=== PATIENT | male | born 1960 | race Caucasian/White ===

== ENCOUNTER 2020-02-26 08:12 | Outpatient (REF) | payer OTHER, SELFPAY ==
--- NOTE | 2020-02-26 08:39 | XR_ITS ---
EXAMINATION: XR CERVICAL SPINE CLINICAL INFORMATION: Left cervical radiculopathy. COMPARISON: None TECHNIQUE: The cervical spine is imaged in 5 views. FINDINGS: There is straightening of the cervical lordosis. Vertebral bodies are normal in height. The odontoid appears intact. There is no vertebral compression or spondylolisthesis. No destructive process or prevertebral soft tissue swelling. There are degenerative disc changes and C6-C7 and lesser at C5-C6 with associated anterior and posterior vertebral spurring. IMPRESSION: Degenerative disc changes C6-C7 and C5-C6.
[2020-02-26 09:40] LABS: Estimated Average Glucose 212 mg/dL
[2020-02-26 09:57] LABS: Alanine Aminotransferase 58 U/L (0-40); Aspartate Amino Transferase 53 U/L (5-37); Glucose Random 229 mg/dL (60-115)
== END 2020-02-26 08:13 | disposition home or self-care (01) ==
LOC: HO.LAB 08:12
PROVIDERS: PCP Family Medicine; Visit Provider Family Medicine
DX: E11.9 Type 2 diabetes mellitus without complications (principal); R94.5 Abnormal results of liver function studies; M54.12 Radiculopathy, cervical region
CPT/HCPCS: 72040; 82947; 83036; 84450; 84460

== ENCOUNTER 2020-03-04 10:55 | Outpatient (REF) | payer OTHER, SELFPAY ==
[2020-03-04 15:26] LABS: Alanine Aminotransferase 51 U/L (0-40); Albumin Level 4.3 g/dL (3.5-5.0); Alkaline Phosphatase 58 U/L (39-117); Anion Gap 15 (12-20); Aspartate Amino Transferase 33 U/L (5-37); Bilirubin Direct 0.2 mg/dL (0.0-0.5); Bilirubin Total 0.6 mg/dL (0.0-1.0); Blood Urea Nitrogen 17 mg/dL (9-16); Carbon Dioxide 25 mmol/L (22-29); Chloride 99 mmol/L (96-108); Estimated Glomerular Filt Rate > 60; Potassium 4.6 mmol/l (3.3-5.1); Sodium 134 mmol/L (135-145); Total Protein 7.6 g/dL (6.5-8.0)
[2020-03-05 09:40] LABS: HBc Num1 0.06 S/CO (0.00-0.79); Hepatitis B Core Antibody Nonreactive (Nonreactive); ~HepC Num1 0.08 S/CO (0.00-0.79); ~Hepatitis C Antibody Nonreactive (Nonreactive)
[2020-03-08 15:01] LABS: FIB-ALT 46 U/L (9-46); FIB-Alpha-2-Macroglobulin 422 mg/dL (106-279); FIB-Apolipoprotein A1 156 mg/dL (94-176); FIB-GGT 123 U/L (3-70); FIB-Haptoglobin 230 mg/dL (43-212); FIB-Total Bilirubin 0.4 mg/dL (0.2-1.2); Liver Fibrosis Score 0.62; Liver Fibrosis Stage F3; Nec Inflam Act Grade A1-A2; Nec Inflam Act Score 0.37
== END 2020-03-04 10:56 | disposition home or self-care (01) ==
LOC: HO.10HDL 10:55
PROVIDERS: Visit Provider Family Medicine
DX: I10 Essential (primary) hypertension (principal); R79.89 Other specified abnormal findings of blood chemistry; E78.00 Pure hypercholesterolemia, unspecified; Z79.899 Other long term (current) drug therapy
CPT/HCPCS: 80051; 80076; 81596; 82550; 82565; 84520; 86704; 86803

== ENCOUNTER 2020-04-14 09:57 | Outpatient (REF) | payer OTHER, SELFPAY ==
[2020-04-14 10:32] LABS: MANUAL DIFF FLAG NO
[2020-04-14 10:38] LABS: Basophils Percent Auto 0.6 % (0-2); Eosinophils Absolute Auto 0.1 X10*3/uL (0.0-0.4); Eosinophils Percent Auto 1.9 % (0-4); Hemoglobin 16.3 g/dl (14.0-18.0); Imm Gran Abs Auto 0.02 X10*3/uL (0.00-0.03); Imm Gran Pct Auto 0.3 % (0.0-0.4); Lymphocytes Absolute Auto 2.8 X10*3/uL (1.2-4.9); Lymphocytes Percent Auto 41.3 % (20-40); Mean Corpuscular HGB Conc 34.7 g/dl (31.0-36.0); Mean Corpuscular Hemoglobin 32.5 pg (27.0-33.0); Mean Corpuscular Volume 93.8 fL (80-98); Mean Platelet Volume 9.9 fL (9.4-12.4); Monocytes Absolute Auto 0.6 X10*3/uL (0.1-1.2); Monocytes Percent Auto 8.2 % (2-11); Neutrophils Absolute Auto 3.2 X10*3/uL (2.0-8.3); Neutrophils Percent Auto 47.7 % (45-73); Platelet Count 146 X10*3/uL (160-400); Red Blood Count 5.01 X10*6/uL (4.60-5.80); Red Cell Distribution Width 12.7 % (11.0-16.0); White Blood Count 6.7 X10*3/uL (4.8-10.8)
[2020-04-14 11:00] LABS: Alanine Aminotransferase 65 U/L (0-40); Albumin Level 4.2 g/dL (3.5-5.0); Alkaline Phosphatase 73 U/L (39-117); Aspartate Amino Transferase 38 U/L (5-37); Bilirubin Direct 0.2 mg/dL (0.0-0.5); Bilirubin Total 0.5 mg/dL (0.0-1.0); Iron 158 mcg/dL (45-160); Percent Iron Saturation 47 % (15-50); Total Iron Binding Capacity 338 mcg/dL (228-428); Total Protein 7.4 g/dL (6.5-8.0); Unsaturated Iron Binding 180 ug/dL
[2020-04-14 11:23] LABS: Ferritin 720 ng/mL (20-250)
[2020-04-16 13:27] LABS: Anti Nuclear Antibody Screen NEGATIVE (NEGATIVE)
[2020-04-16 13:52] LABS: Mitochondrial Antibodies NEGATIVE (NEGATIVE)
[2020-04-18 00:12] LABS: Smooth Muscle Antibody <20 U (<20)
== END 2020-04-14 09:58 | disposition home or self-care (01) ==
LOC: HO.10HDL 09:57
PROVIDERS: Visit Provider Internal Medicine Gastroenterology
DX: R79.89 Other specified abnormal findings of blood chemistry (principal)
CPT/HCPCS: 36415; 80076; 82728; 83540; 85025; 86038; 86039; 86255; 86256

== ENCOUNTER 2020-04-30 09:21 | Outpatient (REF) | payer OTHER, SELFPAY ==
--- NOTE | 2020-04-30 | US_ITS ---
EXAMINATION: US ABDOMEN COMPLETE CLINICAL INFORMATION: Elevated LFTs. COMPARISON: Renal ultrasound 02/03/2016. CT abdomen and pelvis 01/10/2016. TECHNIQUE: Real-time imaging of the abdominal viscera. FINDINGS: PANCREAS: The head and the body of the pancreas is homogeneous in echotexture. The tail is obscured by overlying gas. ABDOMINAL AORTA: The proximal, mid, and distal segments are normal in caliber. INFERIOR VENA CAVA: Visualized portions are normal. LIVER: The liver is normal in size. The liver contour is normal. The liver is increased echogenicity with areas of focal fatty sparing. There is left hepatic lobe lesion with a central hypodensity in the surrounding hypoechoic vascular rim measuring 1.5 x 1.2 x 1.4 cm. There is no intrahepatic biliary duct dilatation seen. GALLBLADDER: Normal. The gallbladder is physiologically distended without evidence of stones, sludge, polyps, wall thickening or pericholecystic fluid. COMMON BILE DUCT: Normal in caliber measuring 0.9 cm in diameter. RIGHT KIDNEY: No hydronephrosis. No renal calculi or focal parenchymal lesions. The kidney measures 12.4 cm in maximum dimension. There is an extrarenal right kidney pelvis noted. LEFT KIDNEY: No hydronephrosis or renal calculi. The kidney measures 13.5 cm in maximum dimension. There is a mid pole anechoic cyst measuring 0.7 x 0.7 x 0.8 seen. Question parapelvic renal cyst in midpole cyst measuring 1.9 x 2.0 x 2.0 cm. SPLEEN: Normal. The spleen measures 10.4 cm in maximum dimension. FREE FLUID: None. US/US abdomen complete IMPRESSION: Increased echogenicity of liver with areas of focal fatty sparing. Vascular lesion left hepatic lobe question hemangioma. Left renal midpole and a parapelvic midpole 2 renal cysts. No echogenic stones or hydronephrosis in either kidney. Extrarenal right kidney pelvis.
== END 2020-04-30 09:22 | disposition home or self-care (01) ==
LOC: HO.US 09:21
PROVIDERS: PCP Family Medicine; Visit Provider Internal Medicine Gastroenterology
DX: R79.89 Other specified abnormal findings of blood chemistry (principal)
CPT/HCPCS: 76700

== ENCOUNTER 2020-05-16 08:30 | Day surgery (SDC) | payer OTHER, SELFPAY ==
[2020-05-12 14:54] VITALS: BMI 32.3
--- NOTE | 2020-05-15 08:39 | P.CONAN_ITS ---
Documented by User: Karen Eli 05/15/20 08:40 HPI - Anesthesia Eval Consult details Narrative: 60yo M for Upper Endoscopy and Colonoscopy [facility] Past Medical History Medical History (Updated 05/16/20 @ 09:02 by Trupti Deleon) Diabetes Elevated cholesterol HTN (hypertension) Increased BMI Surgical History Surgical History H/O colonoscopy History of esophagogastroduodenoscopy (EGD) History of esophagogastroduodenoscopy (EGD) Hx of hand surgery Social History Social History Smoking Status: Never smoker Second Hand Smoke Exposure: No Use of substances other than those prescribed or required for medical reasons: No Advance Directives: No Advance Directives Information Provided: No Advance Directives on File: No Meds Allergies Allergy/AdvReac Type Severity Reaction Status Date / Time tree nut [TREE NUT] Allergy Unknown ANGIOEDEMA Verified 05/12/20 14:54 Home Medications Medication Instructions Recorded Confirmed Type amlodipine 5 mg tablet 5 mg PO DAILY 02/18/20 05/12/20 History blood sugar diagnostic #10 ea 02/18/20 05/12/20 History blood-glucose meter #1 ea 02/18/20 History doxycycline hyclate 100 mg capsule 100 mg PO BID 02/18/20 05/12/20 History lancets 28 gauge #100 ea 02/18/20 History metformin 1,000 mg tablet 1,000 mg PO BEDTIME 02/18/20 05/12/20 History omeprazole 20 mg capsule,delayed 20 mg PO DAILY 02/18/20 05/12/20 History release quinapril 40 mg tablet 40 mg PO DAILY 02/18/20 05/12/20 History rosuvastatin 20 mg tablet 20 mg PO BEDTIME 02/18/20 05/12/20 History Exam Exam Date and Time: May 15, 2020 0839 Height,Weight and Vital Signs: Height 5 ft 8 in Weight 96.615 kg Pertinent Lab Results Pertinent Lab Results: Laboratory Tests 03/04/20 04/14/20 10:40 10:00 WBC 6.7 Hgb 16.3 Hct 47.0 Plt Count 146 L Sodium 134 L Potassium 4.6 Chloride 99 Carbon Dioxide 25 BUN 17 H Creatinine 1.01 Assessment and Plan Assessment Anesthesia Assessment: Chart Reviewed Documented by User: Trupti Deleon 05/16/20 10:10 PMFSH Past Medical History Medical History (Updated 05/16/20 @ 09:02 by Trupti Deleon) Diabetes Elevated cholesterol HTN (hypertension) Increased BMI Family History Family history of problems with anesthesia: No Surgical History Surgical History H/O colonoscopy History of esophagogastroduodenoscopy (EGD) History of esophagogastroduodenoscopy (EGD) Hx of hand surgery History of Problems with Anesthesia: No Social History Social History Smoking Status: Never smoker Second Hand Smoke Exposure: No Use of substances other than those prescribed or required for medical reasons: No Advance Directives: No Advance Directives Information Provided: No Advance Directives on File: No Meds Allergies Allergy/AdvReac Type Severity Reaction Status Date / Time tree nut [TREE NUT] Allergy Unknown ANGIOEDEMA Verified 05/12/20 14:54 Home Medications Medication Instructions Recorded Confirmed Type amlodipine 5 mg tablet 5 mg PO DAILY 02/18/20 05/12/20 History blood sugar diagnostic #10 ea 02/18/20 05/12/20 History blood-glucose meter #1 ea 02/18/20 History doxycycline hyclate 100 mg capsule 100 mg PO BID 02/18/20 05/12/20 History lancets 28 gauge #100 ea 02/18/20 History metformin 1,000 mg tablet 1,000 mg PO BEDTIME 02/18/20 05/12/20 History omeprazole 20 mg capsule,delayed 20 mg PO DAILY 02/18/20 05/12/20 History release quinapril 40 mg tablet 40 mg PO DAILY 02/18/20 05/12/20 History rosuvastatin 20 mg tablet 20 mg PO BEDTIME 02/18/20 05/12/20 History Exam Exam Date and Time: Vital Signs Temp Pulse Resp BP Pulse Ox 05/16/20 09:13 97.4 F 68 18 135/81 96 Pertinent Lab Results Pertinent Lab Results: Lab Results 05/16/20 05/16/20 Range/Units 08:57 09:40 POC Glucose 316 H 277 H (60-115) mg/dL POC 316- Patient did not take his metformin yesterday and has been drinking gatorade as part of his prep. Treated with insulin. Repeat POC 277 Airway Mallampati Class: III TM Dist: >3cm Neck ROM: Full Loose/Missing/Broken Teeth: No (Caps intact) Heart: RRR Lungs: CTAB Assessment and Plan Assessment Anesthesia Assessment: Anesthesia Plan Discussed and Chart Reviewed Final Anesthetic Review NPO: Yes ASA Class: III Final Preanesthetic Review: No Changes in Pt Med Stat, Meds/Allgs Chart Reviewed, Consent Obtained/Reviewed and Anes Risks/Benef Reviewed Patient Risk: Low Procedure Risk: Low Anesthetic Plan Anesthetic Plan: MAC: Disposition: Standard PACU
[2020-05-16] MEDS: Lactated Ringers 1,000 ML 100 ML IVCONT (09:12)
[2020-05-16] MEDS: Insulin Regular, Human 100 UNIT/ML 3 ML VIAL SUBCUT (09:12)
[2020-05-16 09:13] VITALS: BP 135/81; PULSE 68; RESP 18; TEMP 36.3; O2SAT 96
[2020-05-16 09:36] LABS: Glucose, Whole Blood 316 mg/dL (60-115)
[2020-05-16 09:43] LABS: Glucose, Whole Blood 277 mg/dL (60-115)
--- NOTE | 2020-05-16 09:45 | P.HPSUR_ITS ---
Pre-Procedural Eval Section B Chief Complaint: Screening, Dysphagia Details of Present Illness: see h&p no changes Relevant Family History (Specify if Yes): No Relevant Social History: None Present Medications: see Short Stay Collaborative assessment Medical History: No relevant PMH History of Previous Operations: No relevant previous surgery Allergies: Allergies Allergy/AdvReac Type Severity Reaction Status Date / Time tree nut [TREE NUT] Allergy Unknown ANGIOEDEMA Verified 05/12/20 14:54 Review of Systems Sugical H&P ROS: Negative: Constitution, Cardiovascular, Respiratory, Neurological, Psychiatric, Hem-Onc, Allergic/Immunologic, Gastrointestinal, Ge nitourinary, Musculoskeletal, Integumentary, Endocrine and Eyes/Ears/Nose/Throat Exam Surgical H&P Exam: Normal: HEENT, Normal: Heart, Normal: Lungs, Normal: Extremities, Normal: Abdomen, Normal: Skin and Normal: Neurological Plan Diagnosis/Plan: Unchanged I have reviewed the history and physical and performed a pertinent physical examination on my patient. No changes have occurred unless specified.
[2020-05-16 10:29] VITALS: BP 107/75; PULSE 56; RESP 18; TEMP 36.4; O2SAT 97
--- NOTE | 2020-05-16 10:38 | PM.OP ---
Brief Operative Note Date of Service: 05/16/20 Pre-op diagnosis: dysphagia, screening Post-op diagnosis: same Procedure: egd colonoscopy Surgeon: Moises Blankenship Anesthesia: MAC Estimated blood loss (mL): 10 Pathology: other (antrum, egj) Condition: stable Disposition: PACU
[2020-05-16 10:46] VITALS: BP 136/87; PULSE 66; RESP 18; O2SAT 94
--- NOTE | 2020-05-16 10:54 | OP_ITS ---
SURGEON: Moises Blankenship MD INDICATIONS: 1. Dysphagia. 2. Colon cancer screening. PREOPERATIVE DIAGNOSIS: POSTOPERATIVE DIAGNOSIS: PROCEDURE PERFORMED: 1. Upper endoscopy with balloon dilation and biopsy. 2. Colonoscopy to the terminal ileum. ESTIMATED BLOOD LOSS: COMPLICATIONS: ANESTHESIA: Monitored anesthesia care. ASSISTANTS: SPECIMENS: DESCRIPTION OF PROCEDURE: History and physical performed. The risks and benefits of the procedure were explained to the patient. Informed consent was obtained. The patient was placed in the left lateral decubitus position. The Olympus video gastroscope was introduced into the esophagus, stomach, and duodenum. Examination was performed. The scope was removed. He was repositioned for colonoscopy. Digital rectal exam was performed and was found to be normal. The Olympus pediatric video colonoscope was introduced into the rectum and advanced to the cecum without difficulty. The cecum was identified by transillumination, palpation, and identification of ileocecal valve. Examination was performed. The scope was removed. He tolerated both procedures well and was returned to recovery area in stable condition. FINDINGS: UPPER ENDOSCOPY: Esophagus, there was a nonobstructive Schatzki ring. The scope easily passed into the stomach. There was no esophagitis. Stomach: The stomach was normal. Colonoscopy. Duodenum: The bulb and second portion were normal. Balloon dilation of the EG junction to 20 mm for 60 seconds was performed with no immediate complications in the superficial mucosa, mucosal tear. Next biopsies were obtained from the EG junction and antrum. COLONOSCOPY: The terminal ileum was not examined. The visualized colonic mucosa was normal. There was some stool coating over colon in the right colon and cecum, limiting the sensitivity examination for detection of small polyps. No polyps were identified. This was washed and suctioned. Retroflexed examination showed moderate-sized internal hemorrhoids. IMPRESSION: 1. Schatzki ring, status post balloon dilation. 2. Normal colonoscopy. RECOMMENDATION: 1. Follow up the biopsy results. 2. Repeat colonoscopy is recommended in 10 years for average risk individuals. MD MILADIS Tucker/JOSHL / [id number]
[2020-05-16 10:55] VITALS: BP 147/94; PULSE 58; RESP 18; TEMP 36.6; O2SAT 96
--- NOTE | 2020-05-16 11:21 | HO.POSTANES ---
Post Anesthesia Evaluation Post Anesthesia Evaluation Vital Signs: Vital Signs Temp Pulse Resp BP Pulse Ox 05/16/20 10:55 97.8 F 58 18 147/94 H 96 05/16/20 10:46 66 18 136/87 94 05/16/20 10:29 97.5 F 56 18 107/75 97 05/16/20 09:13 97.4 F 68 18 135/81 96 Anesthesia: Monitored Mental Status: Awake Pain Control: Satisfactory Nausea/Vomiting: None Hydration: Adequate Anesthesia-Related Issues: No Anes. Related Issues
== END 2020-05-16 11:36 | disposition home or self-care (01) ==
PROVIDERS: PCP Family Medicine; Visit Provider Internal Medicine Gastroenterology
PROC: (CPT 45378; principal; 2020-05-16 09:30)
DX: Z12.11 Encounter for screening for malignant neoplasm of colon (principal); K64.8 Other hemorrhoids; R13.10 Dysphagia, unspecified; K22.2 Esophageal obstruction; I10 Essential (primary) hypertension; E11.9 Type 2 diabetes mellitus without complications; Z79.84 Long term (current) use of oral hypoglycemic drugs; Z79.82 Long term (current) use of aspirin; Z79.899 Other long term (current) drug therapy; R79.89 Other specified abnormal findings of blood chemistry; Z91.018 Allergy to other foods
CPT/HCPCS: 45378; 43249; 43239; 82947; 88305; 88342; C1726

== ENCOUNTER 2020-09-01 06:48 | Outpatient (REF) | payer OTHER, SELFPAY ==
[2020-09-01 08:05] LABS: Alanine Aminotransferase 57 U/L (0-40); Anion Gap 16 (12-20); Aspartate Amino Transferase 47 U/L (5-37); Blood Urea Nitrogen 15 mg/dL (9-16); Carbon Dioxide 24 mmol/L (22-29); Chloride 101 mmol/L (96-108); Estimated Glomerular Filt Rate > 60; Glucose Fasting 272 mg/dL (60-99); Potassium 5.1 mmol/L (3.3-5.1); Sodium 136 mmol/L (135-145)
[2020-09-01 08:07] LABS: Estimated Average Glucose 286 mg/dL; Hemoglobin A1c % 11.6 %
== END 2020-09-01 06:49 | disposition home or self-care (01) ==
LOC: HO.LAB 06:48
PROVIDERS: PCP Family Medicine; Visit Provider Family Medicine
DX: E11.9 Type 2 diabetes mellitus without complications (principal); I10 Essential (primary) hypertension; E78.00 Pure hypercholesterolemia, unspecified; Z79.899 Other long term (current) drug therapy
CPT/HCPCS: 36415; 80051; 82550; 82565; 82947; 83036; 84450; 84460; 84520

== ENCOUNTER 2020-10-17 09:11 | Outpatient (REF) | payer OTHER, SELFPAY ==
[2020-10-17 10:12] LABS: Cholesterol 185 mg/dL; HDL Cholesterol 46 mg/dL; LDL Cholesterol Calculated 87 mg/dl; Triglycerides 262 mg/dL
[2020-10-17 12:27] LABS: Creatinine Urine 118.21 mg/dL; Microalbum/Creatinine Ratio Ur 177.6 ug/mg cr
[2020-10-18 07:41] LABS: LDL Cholesterol Direct 100 mg/dL (<100)
== END 2020-10-17 09:12 | disposition home or self-care (01) ==
LOC: HO.LAB 09:11
PROVIDERS: PCP Family Medicine; Visit Provider Nurse Practitioner Family
DX: E11.9 Type 2 diabetes mellitus without complications (principal)
CPT/HCPCS: 36415; 80061; 82043; 83721

== ENCOUNTER 2020-12-09 10:53 | Outpatient (REF) | payer OTHER, SELFPAY ==
--- NOTE | ~2020-12-09 | US_ITS ---
EXAMINATION: US THYROID CLINICAL INFORMATION: Follow up multiple bilateral thyroid nodules. COMPARISON: Ultrasound soft tissue head/neck thyroid dated 11/14/2017 and 10/09/2015. TECHNIQUE: Linear transducer grayscale and color Doppler examination with attention to the region of the thyroid. FINDINGS: SIZE: Measurements of the thyroid lobes and nodules are given in sagittal, anteroposterior and transverse dimensions respectively. Right Thyroid Lobe: 4.7 x 2.0 x 1.6 cm, volume 7.9 mL. Previously 4.6 x 1.6 x 1.5 cm, volume 5.8 mL. Parenchyma: The gland echotexture is heterogeneous. Thyroid vascularity is normal. Left Thyroid Lobe: 5.1 x 2.6 x 2.7 cm, volume 18.8 mL. Previously 4.5 x 2.4 x 2.6 cm, volume 14.7 mL. Parenchyma: The gland echotexture is heterogeneous. Thyroid vascularity is normal. Isthmus: 0.5 cm in maximum AP dimension. Previously 0.4 cm. Estimated total number of nodules greater than or equal to 1 cm: 1. Weatherization And Housing Inspector nodules are described as follows: 1. Location: Right superior. Size: 0.3 x 0.2 x 0.3 cm, volume 0.09 mL. Previously: 0.3 x 0.2 x 0.3 cm, volume 0.09 mL. Nodule characteristics: Composition: Cystic(0). ACR TI-RADS total points: 0 Previous: n/a ACR TI-RADS category: 1 Previous: n/a Significant change in size (>/= 20% in 2 dimensions and minimal increase of 2 mm or 50% or greater increase in volume): Change in features: Change in ACR TI-RADS risk category: n/a 2. Location: Right mid. Size: 0.2 x 0.2 x 0.2 cm, volume 0.003 mL. Previously: 0.2 x 0.2 x 0.2 cm, volume 0.003 mL. Nodule characteristics: Composition: Mixed cystic and solid (1). Echogenicity: Hypoechoic (2). Shape: Not taller than wide (0). Margins: Smooth (0). Echogenic Foci: None (0). ACR TI-RADS total points: 3 Previous: n/a ACR TI-RADS category: 3 Previous: n/a Significant change in size (>/= 20% in 2 dimensions and minimal increase of 2 mm or 50% or greater increase in volume): Change in features: Change in ACR TI-RADS risk category: n/a 3. Location: Left mid. Size: 2.1 x 1.9 x 2.7 cm, volume 5.6 mL. Previously: 2.9 x 2.0 x 2.2 cm, volume 6.7 mL. Nodule characteristics: Composition: Mixed cystic and solid (1). Echogenicity: Hyperechoic (1). Shape: Not taller than wide (0). Margins: Smooth (0). Echogenic Foci: None (0). ACR TI-RADS total points: 2 Previous: n/a ACR TI-RADS category: 2 Previous: n/a Significant change in size (>/= 20% in 2 dimensions and minimal increase of 2 mm or 50% or greater increase in volume): Change in features: Change in ACR TI-RADS risk category: n/a 4. Location: Left inferior. Size: 0.6 x 0.5 x 0.5 cm, volume 0.07 mL. Previously: 0.6 x 0.4 x 0.5 cm, volume 0.06 mL. Nodule characteristics: Composition: Solid/almost completely solid (2). Echogenicity: Anechoic (0). Shape: Not taller than wide (0). Margins: Smooth (0). Echogenic Foci: None (0). ACR TI-RADS total points: 2 Previous: n/a ACR TI-RADS category: 2 Previous: n/a Significant change in size (>/= 20% in 2 dimensions and minimal increase of 2 mm or 50% or greater increase in volume): Change in features: Change in ACR TI-RADS risk category: n/a 5. Location: Left isthmus. Size: 0.8 x 0.7 x 0.9 cm, volume 0.3 mL. Previously: 1.0 x 0.7 x 1.0 cm, volume 0.3 mL. Nodule characteristics: Composition: Solid (2). Echogenicity: Isoechoic (1). Shape: Not taller than wide (0). Margins: Smooth (0). Echogenic Foci: None (0). ACR TI-RADS total points: 3 Previous: n/a ACR TI-RADS category: 3 Previous: n/a Significant change in size (>/= 20% in 2 dimensions and minimal increase of 2 mm or 50% or greater increase in volume): Change in features: Change in ACR TI-RADS risk category: n/a NODES: No lymphadenopathy is seen in the tissue surrounding the thyroid gland. US/US thyroid IMPRESSION: TI-RADS Category 3 involving a 2 mm nodule within the right middle lobe and a 2.1 x 1.9 x 2.7 cm left mid nodule. The largest nodule measuring 2.7 cm in largest dimension has been biopsied in 2015 with result of findings of a follicular lesion of undetermined significance. Continued follow-up is recommended. ACR TI-RADS RECOMMENDATION REFERENCE: Ultrasound-guided fine-needle aspiration, followup ultrasound, no further follow up. * TR1 (0 point) and TR 2 (2 points): No FNA or follow up * TR3 (3 points): FNA if more than or equal to 2.5 cm in maximum dimension, followup ultrasound in 1, 3 and 5 years if 1.5 to 2.4 cm in maximum dimension. * TR4 (4-6 points): FNA if more than or equal to 1.5 cm in maximum dimension, followup ultrasound in 1, 2, 3 and 5 years if 1 to 1.4 cm in maximum dimension. * TR5 (more than or equal to 7 points): FNA if more than or equal to 1 cm in maximum dimension, followup ultrasound every year for 5 years if 0.5 to 0.9 cm in maximum dimension. * TR3, TR4 or TR5 nodules that are below the size threshold for follow up receive no follow up.
== END 2020-12-09 10:54 | disposition home or self-care (01) ==
LOC: HO.US 10:53
PROVIDERS: Visit Provider Family Medicine
DX: E04.2 Nontoxic multinodular goiter (principal)
CPT/HCPCS: 76536

== ENCOUNTER 2021-02-05 07:34 | Outpatient (REF) | payer OTHER, SELFPAY ==
[2021-02-05 10:39] LABS: Alanine Aminotransferase 37 U/L (0-40); Anion Gap 12 (12-20); Aspartate Amino Transferase 26 U/L (5-37); Blood Urea Nitrogen 13 mg/dL (9-16); Carbon Dioxide 25 mmol/L (22-29); Chloride 107 mmol/L (96-108); Estimated Glomerular Filt Rate > 60; Glucose Fasting 131 mg/dL (60-99); Potassium 4.7 mmol/L (3.3-5.1); Sodium 139 mmol/L (135-145)
[2021-02-05 11:00] LABS: Estimated Average Glucose 134 mg/dL; Hemoglobin A1c % 6.3 %
== END 2021-02-05 07:35 | disposition home or self-care (01) ==
LOC: HO.10HDL 07:34
PROVIDERS: Visit Provider Family Medicine
DX: I10 Essential (primary) hypertension (principal); E78.00 Pure hypercholesterolemia, unspecified; E11.9 Type 2 diabetes mellitus without complications; Z79.899 Other long term (current) drug therapy
CPT/HCPCS: 36415; 80051; 82550; 82565; 82947; 83036; 84450; 84460; 84520

== ENCOUNTER 2021-08-06 06:20 | Outpatient (REF) | payer OTHER, SELFPAY ==
[2021-08-06 07:09] LABS: Estimated Average Glucose 143 mg/dL; Hemoglobin A1c % 6.6 %
[2021-08-06 07:21] LABS: Alanine Aminotransferase 38 U/L (0-40); Anion Gap 14 (12-20); Aspartate Amino Transferase 25 U/L (5-37); Blood Urea Nitrogen 15 mg/dL (9-16); Carbon Dioxide 23 mmol/L (22-29); Chloride 105 mmol/L (96-108); Estimated Glomerular Filt Rate > 60; Glucose Fasting 241 mg/dL (60-99); Potassium 4.6 mmol/L (3.3-5.1); Sodium 137 mmol/L (135-145)
[2021-08-06 10:15] LABS: Creatinine Urine 189.21 mg/dL; Microalbum/Creatinine Ratio Ur 206.1 ug/mg cr
== END 2021-08-06 06:21 | disposition home or self-care (01) ==
LOC: HO.LAB 06:20
PROVIDERS: PCP Family Medicine; Visit Provider Family Medicine
DX: I10 Essential (primary) hypertension (principal); E11.9 Type 2 diabetes mellitus without complications; K75.81 Nonalcoholic steatohepatitis (NASH)
CPT/HCPCS: 36415; 80051; 82043; 82565; 82947; 83036; 84450; 84460; 84520

== ENCOUNTER → 2021-10-07 09:57 | Outpatient (BNVA) | payer OTHER, SELFPAY | PROVIDERS: PCP Family Medicine; Visit Provider Orthopaedic Surgery | DX: Z13.89 Encounter for screening for other disorder (principal) ==

== ENCOUNTER 2022-03-09 06:01 | Outpatient (REF) | payer OTHER, SELFPAY ==
[2022-03-09 07:49] LABS: Creatinine Urine 85.11 mg/dL; Microalbum/Creatinine Ratio Ur 438.2 ug/mg cr
[2022-03-09 08:16] LABS: Alanine Aminotransferase 47 U/L (0-40); Anion Gap 18 (12-20); Aspartate Amino Transferase 29 U/L (5-37); Blood Urea Nitrogen 17 mg/dL (9-16); Carbon Dioxide 25 mmol/L (22-29); Chloride 101 mmol/L (96-108); Estimated Glomerular Filt Rate > 60; Glucose Fasting 287 mg/dL (60-99); Potassium 4.7 mmol/L (3.3-5.1); Sodium 139 mmol/L (135-145)
[2022-03-09 08:34] LABS: Estimated Average Glucose 212 mg/dL
== END 2022-03-09 06:02 | disposition home or self-care (01) ==
LOC: HO.LAB 06:01
PROVIDERS: PCP Family Medicine; Visit Provider Family Medicine
DX: I10 Essential (primary) hypertension (principal); E11.9 Type 2 diabetes mellitus without complications; E78.00 Pure hypercholesterolemia, unspecified; Z79.899 Other long term (current) drug therapy
CPT/HCPCS: 36415; 80051; 82043; 82550; 82565; 82947; 83036; 84450; 84460; 84520

== ENCOUNTER 2023-06-09 06:09 | Outpatient (REF) | payer OTHER, SELFPAY ==
[2023-06-09 08:03] LABS: Estimated Average Glucose 171 mg/dL; Hemoglobin A1c % 7.6 % (<6.0)
[2023-06-09 08:14] LABS: Alanine Aminotransferase 20 U/L (0-40); Anion Gap 12 (12-20); Aspartate Amino Transferase 16 U/L (5-37); Blood Urea Nitrogen 15 mg/dL (9-16); Carbon Dioxide 24 mmol/L (22-29); Chloride 106 mmol/L (96-108); Estimated Glomerular Filt Rate > 60; Glucose Fasting 158 mg/dL (60-99); Potassium 4.6 mmol/L (3.3-5.1); Sodium 137 mmol/L (135-145)
[2023-06-09 08:18] LABS: Creatinine Urine 180.43 mg/dL; Microalbum/Creatinine Ratio Ur 188.4 ug/mg cr (<30)
== END 2023-06-09 06:10 | disposition home or self-care (01) ==
LOC: HO.LAB 06:09
PROVIDERS: PCP Family Medicine; Visit Provider Family Medicine
DX: I10 Essential (primary) hypertension (principal); E11.9 Type 2 diabetes mellitus without complications; E78.00 Pure hypercholesterolemia, unspecified; K75.81 Nonalcoholic steatohepatitis (NASH)
CPT/HCPCS: 36415; 80051; 82043; 82565; 82570; 82947; 83036; 84450; 84460; 84520

== ENCOUNTER 2023-08-09 09:49 | Outpatient (REF) | payer OTHER, SELFPAY ==
--- NOTE | ~2023-08-09 | US_ITS ---
EXAMINATION: US THYROID CLINICAL INFORMATION: Nontoxic multinodular goiter. COMPARISON: Thyroid ultrasound 12/09/2020. TECHNIQUE: Linear transducer grayscale and color Doppler examination with attention to the region of the thyroid. FINDINGS: SIZE: Measurements of the thyroid lobes and nodules are given in sagittal, anteroposterior and transverse dimensions respectively. Right Thyroid Lobe: 4.6 x 1.6 x 1.7 cm, volume 6.8 mL. Previously 4.7 x 2.0 x 1.6 cm, volume 7.9 mL. Parenchyma: The gland echotexture is heterogeneous. Thyroid vascularity is normal. Left Thyroid Lobe: 4.3 x 2.3 x 2.4 cm, volume 11.9 mL. Previously 5.1 x 2.6 x 2.7 cm, volume 18.8 mL. Parenchyma: The gland echotexture is heterogeneous. Thyroid vascularity is normal. Isthmus: 0.6 cm in maximum AP dimension. Previously 0.5 cm. Estimated total number of nodules greater than or equal to 1 cm: 2. Hose Finisher nodules are described as follows: 1. Location: Right upper pole. Size: 0.3 x 0.2 x 0.4 cm, volume 0.08 mL. Previously: 0.3 x 0.2 x 0.3 cm, volume 0.09 mL. Nodule characteristics: Composition: Cystic(0). ACR TI-RADS total points: 0 Previous: 0 ACR TI-RADS category: 1 Previous: 1 Significant change in size (>/= 20% in 2 dimensions and minimal increase of 2 mm or 50% or greater increase in volume): No Change in features: No Change in ACR TI-RADS risk category: No 2. Location: Right mid pole. Size: 0.7 x 0.5 x 0.6 cm, volume 0.11 mL. Previously: Not documented, new. Nodule characteristics: Composition: Solid/almost completely solid (2). Echogenicity: Cannot be determined (1). Shape: Not taller than wide (0). Margins: Ill-defined (0). Echogenic Foci: None (0). ACR TI-RADS total points: 3 ACR TI-RADS category: 3 3. Location: Left mid pole. Size: 2.7 x 2.0 x 2.2 cm, volume 6.2 mL. Previously: 2.1 x 1.9 x 2.7 cm, volume 5.6 mL. Nodule characteristics: Composition: Mixed cystic and solid (1). Echogenicity: Hypoechoic (2). Shape: Not taller than wide (0). Margins: Smooth (0). Echogenic Foci: Macrocalcifications (1). ACR TI-RADS total points: 4 Previous: 2 ACR TI-RADS category: 4 Previous: 2 Significant change in size (>/= 20% in 2 dimensions and minimal increase of 2 mm or 50% or greater increase in volume): Yes Change in features: Yes Change in ACR TI-RADS risk category: Yes 4. Location: Left mid/lower pole. Size: 1.0 x 0.7 x 0.7 cm, volume 0.24 mL. Previously: 0.6 x 0.4 x 0.5 cm, volume 0.06 mL. Nodule characteristics: Composition: Solid/almost completely solid (2). Echogenicity: Hypoechoic (2). Shape: Not taller than wide (0). Margins: Smooth (0). Echogenic Foci: None (0). ACR TI-RADS total points: 4 Previous: 2 ACR TI-RADS category: 4 Previous: 2 Significant change in size (>/= 20% in 2 dimensions and minimal increase of 2 mm or 50% or greater increase in volume): Yes Change in features: No Change in ACR TI-RADS risk category: No 5. Location: Left lower pole/isthmus. Size: 1.1 x 0.8 x 0.9 cm, volume 0.44 mL. Previously: 1.0 x 0.7 x 1.0 cm, volume 0.3 mL. Nodule characteristics: Composition: Solid (2). Echogenicity: Hypoechoic (2). Shape: Not taller than wide (0). Margins: Smooth (0). Echogenic Foci: None (0). ACR TI-RADS total points: 4 Previous: 3 ACR TI-RADS category: 4 Previous: 3 Significant change in size (>/= 20% in 2 dimensions and minimal increase of 2 mm or 50% or greater increase in volume): No Change in features: No Change in ACR TI-RADS risk category: No NODES: No lymphadenopathy is seen in the tissue surrounding the thyroid gland. US/US thyroid IMPRESSION: Heterogeneous multinodular thyroid gland. A 2.7 cm TR 4 nodule in the left mid pole is increase in size and slightly more hypoechoic, if not previously obtained, further evaluation with FNA is recommended. A 1 cm TR 4 nodule in the left mid to lower pole is also increase in size. Recommend follow-up with ultrasound in one year. An additional 1.1 cm TR 4 nodule in the left lower pole is unchanged. Recommend follow-up with ultrasound in one year. Other subcentimeter thyroid nodules do not meet size criteria for further evaluation. ACR TI-RADS RECOMMENDATION REFERENCE: Ultrasound-guided fine-needle aspiration, follow up ultrasound, no further followup. * TR1 (0 point) and TR2 (2 points): No FNA or followup * TR3 (3 points): FNA if more than or equal to 2.5 cm in maximum dimension, follow up ultrasound in 1, 3 and 5 years if 1.5 to 2.4 cm in maximum dimension. * TR4 (4-6 points): FNA if more than or equal to 1.5 cm in maximum dimension, follow up ultrasound in 1, 2, 3 and 5 years if 1 to 1.4 cm in maximum dimension. * TR5 (more than or equal to 7 points): FNA if more than or equal to 1 cm in maximum dimension, follow up ultrasound every year for 5 years if 0.5 to 0.9 cm in maximum dimension. * TR3, TR4 or TR5 nodules that are below the size threshold for follow up receive no followup.
== END 2023-08-09 09:50 | disposition home or self-care (01) ==
LOC: HO.US 09:49
PROVIDERS: PCP Family Medicine; Visit Provider Family Medicine
DX: E04.2 Nontoxic multinodular goiter (principal)
CPT/HCPCS: 76536

== ENCOUNTER 2023-11-08 15:20 | Outpatient (AMB) | payer OTHER, SELFPAY ==
[2023-11-08 15:22] VITALS: BP 126/76; PULSE 68; BMI 31.4
--- NOTE | 2023-11-08 15:22 | A.OFFVIS_ITS ---
Vital Signs 11/08/23 15:22 Height 5 ft 9 in Weight 212 lb 8.41 oz BMI 31.4 BP 126/76 Blood Pressure Location Lt brachial Position Sitting Pulse 68 Pulse Source Pulse Oximeter Intake Visit Reasons: thyroid Nodules-confirmed Intake Note: New patient presents today for Thyroid Nodule, referred by PCP. Control Panel Builder Required: No Accompanied by: Self / Same As Patient Allergies tree nut [TREE NUT] Allergy (Unknown, Verified 11/08/23 15:26) ANGIOEDEMA Medication List - Last Reconciled 11/08/23 by José Miguel Matthews MD amlodipine 5 mg PO DAILY blood sugar diagnostic As directed blood-glucose meter As directed dulaglutide (Trulicity) mg subcut lancets As directed metformin (Glucophage) 1,000 mg PO BEDTIME omeprazole 20 mg PO DAILY quinapril 40 mg PO DAILY rosuvastatin 20 mg PO BEDTIME HPI Comments Details: 63 YO M with who is seen in consultation for multinodular thyroid at the request of PCP. Never saw endo before Was initially diagnosed with multinodular thyroid in [] with thyroid US revealing .Right Thyroid Lobe: 4.6 x 1.6 x 1.7 cm, volume 6.8 mL. Previously 4.7 x 2.0 x 1.6 cm, volume 7.9 mL. Parenchyma: The gland echotexture is heterogeneous. Thyroid vascularity is normal. Left Thyroid Lobe: 4.3 x 2.3 x 2.4 cm, volume 11.9 mL. Previously 5.1 x 2.6 x 2.7 cm, volume 18.8 mL. Parenchyma: The gland echotexture is heterogeneous. Thyroid vascularity is normal. Isthmus: 0.6 cm in maximum AP dimension. Previously 0.5 cm. Estimated total number of nodules greater than or equal to 1 cm: 2. [employer] nodules are described as follows: 1. Location: Right upper pole. Size: 0.3 x 0.2 x 0.4 cm, volume 0.08 mL. Previously: 0.3 x 0.2 x 0.3 cm, volume 0.09 mL. Nodule characteristics: Composition: Cystic(0). ACR TI-RADS total points: 0 Previous: 0 ACR TI-RADS category: 1 Previous: 1 Significant change in size (>/= 20% in 2 dimensions and minimal increase of 2 mm or 50% or greater increase in volume): No Change in features: No Change in ACR TI-RADS risk category: No 2. Location: Right mid pole. Size: 0.7 x 0.5 x 0.6 cm, volume 0.11 mL. Previously: Not documented, new. Nodule characteristics: Composition: Solid/almost completely solid (2). Echogenicity: Cannot be determined (1). Shape: Not taller than wide (0). Margins: Ill-defined (0). Echogenic Foci: None (0). ACR TI-RADS total points: 3 ACR TI-RADS category: 3 3. Location: Left mid pole. Size: 2.7 x 2.0 x 2.2 cm, volume 6.2 mL. Previously: 2.1 x 1.9 x 2.7 cm, volume 5.6 mL. Nodule characteristics: Composition: Mixed cystic and solid (1). Echogenicity: Hypoechoic (2). Shape: Not taller than wide (0). Margins: Smooth (0). Echogenic Foci: Macrocalcifications (1). ACR TI-RADS total points: 4 Previous: 2 ACR TI-RADS category: 4 Previous: 2 Significant change in size (>/= 20% in 2 dimensions and minimal increase of 2 mm or 50% or greater increase in volume): Yes Change in features: Yes Change in ACR TI-RADS risk category: Yes 4. Location: Left mid/lower pole. Size: 1.0 x 0.7 x 0.7 cm, volume 0.24 mL. Previously: 0.6 x 0.4 x 0.5 cm, volume 0.06 mL. Nodule characteristics: Composition: Solid/almost completely solid (2). Echogenicity: Hypoechoic (2). Shape: Not taller than wide (0). Margins: Smooth (0). Echogenic Foci: None (0). ACR TI-RADS total points: 4 Previous: 2 ACR TI-RADS category: 4 Previous: 2 Significant change in size (>/= 20% in 2 dimensions and minimal increase of 2 mm or 50% or greater increase in volume): Yes Change in features: No Change in ACR TI-RADS risk category: No 5. Location: Left lower pole/isthmus. Size: 1.1 x 0.8 x 0.9 cm, volume 0.44 mL. Previously: 1.0 x 0.7 x 1.0 cm, volume 0.3 mL. Nodule characteristics: Composition: Solid (2). Echogenicity: Hypoechoic (2). Shape: Not taller than wide (0). Margins: Smooth (0). Echogenic Foci: None (0). ACR TI-RADS total points: 4 Previous: 3 ACR TI-RADS category: 4 Previous: 3 Significant change in size (>/= 20% in 2 dimensions and minimal increase of 2 mm or 50% or greater increase in volume): No Change in features: No Change in ACR TI-RADS risk category: No NODES: No lymphadenopathy is seen in the tissue surrounding the thyroid gland. US/US thyroid IMPRESSION: Heterogeneous multinodular thyroid gland. A 2.7 cm TR 4 nodule in the left mid pole is increase in size and slightly more hypoechoic, if not previously obtained, further evaluation with FNA is recommended. A 1 cm TR 4 nodule in the left mid to lower pole is also increase in size. Recommend follow-up with ultrasound in one year. An additional 1.1 cm TR 4 nodule in the left lower pole is unchanged. Recommend follow-up with ultrasound in one year. Currently denies any dysphagia or hoarseness of voice. Denies sensation of swelling in the neck or difficulty breathing while lying flat. Denies any tenderness in the neck. Denies any palpitations, tremors, weight loss, frequent bowel movements. Denies any ocular complaints, blurred or double vision. Mother had throid issues Denies hair loss, dry skin, heat or cold intolerance, weight gain, confusion. Denies any history of head or neck irradiation. Denies any family history of thyroid cancer. ? Had biopsy of nodules in the past in 2014 with cytology of let midpole nodule showing atypia of uncertain significance according to prior ultrasound report Thyroid US: Labs: [facility] Medical History (Updated 11/08/23 @ 15:28 by José Miguel Matthews MD) Multiple thyroid nodules Increased BMI Diabetes Elevated cholesterol HTN (hypertension) Surgical History Hx of hand surgery History of esophagogastroduodenoscopy (EGD) History of esophagogastroduodenoscopy (EGD) H/O colonoscopy Social History (Updated 10/07/21 @ 10:14 by MATT Bravo [employer] Smoke Exposure: No Current occupational status: employed 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 Physical Exam HEENT reveals absence of lid lag , stare or proptosis or eyebrow loss. Thyroid gland measure 15 gms . No nodules or tenderness palpated. There is no cervical adenopathy palpated. Lungs CTA. Heart S1, S2 Reg R/R -M/R/G. Abdominal exam benign. Skin exam reveals absence of dryness or thyroid dermopathy or vitiligo. Nail exam reveals absence of thyroid acropachy or oncholysis. Neurologic exam reveals 2+ reflexes . Muscle Strength is 5/5 proximally. There are no tremors in upper extremities. Assessment & Plan Assessment & Plan (1) Multiple thyroid nodules: Code(s): E04.2 - Nontoxic multinodular goiter Category: Medical Plan: This is a 63-year-old white male with a history of multinodular goiter with dominant left midpole nodule. Appears to be clinically euthyroid. Status post FNA in 2014 Plan is to try to obtain previous pathology and genetic testing performed [place] [address] Knott. We will recheck TSH and free T4. If TSH is suppressed, we will get iodine 123 uptake and scan. If TSH is normal, depending upon above, may consider re-biopsy with genetic testing. Patient will follow up with Dr. Castillo who is expected started about 1 month's time as a specialist thyroid ultrasound Orders: Orders Triiodothyronine T3 Free Today E04.2 - Nontoxic multinodular goiter Free T4 (Free Thyroxine) Today E04.2 - Nontoxic multinodular goiter Thyroid Stimulating Hormone Today E04.2 - Nontoxic multinodular goiter Coding Level of Care Code New Pt Level 4 (57551) Diagnoses Multiple thyroid nodules E04.2
== END 2023-11-08 15:52 | disposition home or self-care (01) ==
PROVIDERS: PCP Family Medicine; Visit Provider Internal Medicine Endocrinology, Diabetes & Metabolism
DX: E04.2 Nontoxic multinodular goiter (principal)
CPT/HCPCS: 99204

== ENCOUNTER 2023-11-08 15:20 | Outpatient (REF) | payer OTHER, SELFPAY ==
[2023-11-08 17:38] LABS: Free T4 (Free Thyroxine) 0.77 ng/dL (0.71-1.85); Thyroid Stimulating Hormone 0.24 uIU/mL (0.32-4.0)
[2023-11-09 05:53] LABS: Triiodothyronine T3 Free 3.7 pg/mL (2.3-4.2)
== END 2023-11-08 15:21 | disposition home or self-care (01) ==
LOC: HO.LAB 15:20
PROVIDERS: PCP Family Medicine; Visit Provider Internal Medicine Endocrinology, Diabetes & Metabolism
DX: E04.2 Nontoxic multinodular goiter (principal)
CPT/HCPCS: 36415; 84439; 84443; 84481

== ENCOUNTER → 2023-12-15 09:22 | Outpatient (REF) | payer OTHER, SELFPAY ==
--- NOTE | ~2023-12-15 | NM_ITS ---
EXAMINATION: THYROID UPTAKE AND SCAN CLINICAL INFORMATION: 63-year-old male with clinical diagnosis of nontoxic multinodular goiter. COMPARISON: Thyroid ultrasound done on 08/09/2023 and 12/09/2020. TECHNIQUE: Following the oral administration of 293 microcuries of I-123 sodium iodide, thyroid uptake was performed and expressed as a percentage of the administrated dose. Gamma scintillation camera images of the thyroid in the anterior and right and left anterior oblique views were obtained using a pinhole collimator following the administration of 10.0 mCi Tc-99m pertechnetate. FINDINGS: The uptake is 6.89% at 4 hours and 15.4% at 24 hours (Normal radioiodine uptake at 4 to 6 hours is about 5-15% and at 24 hours is 10% to 30%). The radioiodine uptake is normal. The radiopertechnetate thyroid scintigram demonstrates the thyroid gland to be normal in position. The left lobe of the thyroid gland is asymmetrically enlarged, shows mild diffuse asymmetric increased tracer avidity as compared to the right lobe. Previous sonographic detected sub-5 mm and subcentimeter nodules seen at the right upper to mid pole are not reproduced in the current study. The dominant 2.7 cm mixed solid, cystic nodules seen at the mid part of the left lobe of the thyroid gland however is visualized and appear predominantly photopenic. The 2 other smaller approximately 1.1 and 1.0 cm nodules seen at mid to inferior pole are not reproduced on the study. The trapping function appears normal. NM/NM thyroid w uptake IMPRESSION: * Normal radioiodine uptake. * Abnormal morphologic appearance of the thyroid gland showing asymmetric increased tracer avidity and prominence of the left lobe of the thyroid gland and superimposed photopenic nodule at mid part of the left lobe of the gland, appears to correspond with the dominant 2.7 cm mixed solid, cystic nodule seen on most recent prior ultrasound dated 08/09/2023. * Ultrasound-guided fine-needle aspiration of the above-mentioned photopenic nodule may be considered for further clarification given its photopenic appearance on the scintigraphic images and interval increase in size as was documented on prior thyroid ultrasound dated 08/09/2023.
== END ==
LOC: HO.NUCMED 09:22
PROVIDERS: PCP Family Medicine; Visit Provider Internal Medicine Endocrinology, Diabetes & Metabolism
DX: E04.2 Nontoxic multinodular goiter (principal)
CPT/HCPCS: 78014; A9512; A9516

== ENCOUNTER 2023-12-22 09:54 | Outpatient (AMB) | payer OTHER, SELFPAY ==
[2023-12-22 10:08] VITALS: BP 122/84; PULSE 64; BMI 31.2
--- NOTE | 2023-12-22 10:08 | A.OFFVIS_ITS ---
Vital Signs 3 12/22/23 10:08 Height 5 ft 9 in Weight 211 lb 3.245 oz BMI 31.2 BP 122/84 Blood Pressure Location Lt brachial Position Sitting Pulse 64 Pulse Source Pulse Oximeter Intake Visit Reasons: Thyroid nodule/CONFIRMED Intake Note: Patient present today for Thyroid nodule office visit. Ion Exchange Operator Required: No Accompanied by: Self / Same As Patient Allergies tree nut [TREE NUT] Allergy (Unknown, Verified 12/22/23 10:11) ANGIOEDEMA Medication List - Last Reconciled 12/22/23 by Ekta Castillo MD amlodipine 5 mg PO DAILY blood sugar diagnostic As directed blood-glucose meter As directed lancets As directed metformin (Glucophage) 1,000 mg PO BEDTIME omeprazole 20 mg PO DAILY quinapril 40 mg PO DAILY rosuvastatin 20 mg PO BEDTIME semaglutide (Ozempic) 0.5 mg subcut QWEEK HPI Comments Details: 63 YO M with who is seen for follow-up of multinodular thyroid. Was initially diagnosed with multinodular thyroid in 2014 , had FNA of his left dominant nodule per records which was AUS. Scanned records do not show molecular testing. Over the years he has had some serial ultrasounds. Most recent thyroid ultrasound in 08/2023 as below: Ultrasound .Right Thyroid Lobe: 4.6 x 1.6 x 1.7 cm, volume 6.8 mL. Previously 4.7 x 2.0 x 1.6 cm, volume 7.9 mL. Parenchyma: The gland echotexture is heterogeneous. Thyroid vascularity is normal. Left Thyroid Lobe: 4.3 x 2.3 x 2.4 cm, volume 11.9 mL. Previously 5.1 x 2.6 x 2.7 cm, volume 18.8 mL. Parenchyma: The gland echotexture is heterogeneous. Thyroid vascularity is normal. Isthmus: 0.6 cm in maximum AP dimension. Previously 0.5 cm. Estimated total number of nodules greater than or equal to 1 cm: 2. [facility] [employer] nodules are described as follows: 1. Location: Right upper pole. Size: 0.3 x 0.2 x 0.4 cm, volume 0.08 mL. Previously: 0.3 x 0.2 x 0.3 cm, volume 0.09 mL. Nodule characteristics: Composition: Cystic(0). ACR TI-RADS total points: 0 Previous: 0 ACR TI-RADS category: 1 Previous: 1 Significant change in size (>/= 20% in 2 dimensions and minimal increase of 2 mm or 50% or greater increase in volume): No Change in features: No Change in ACR TI-RADS risk category: No 2. Location: Right mid pole. Size: 0.7 x 0.5 x 0.6 cm, volume 0.11 mL. Previously: Not documented, new. Nodule characteristics: Composition: Solid/almost completely solid (2). Echogenicity: Cannot be determined (1). Shape: Not taller than wide (0). Margins: Ill-defined (0). Echogenic Foci: None (0). ACR TI-RADS total points: 3 ACR TI-RADS category: 3 3. Location: Left mid pole. Size: 2.7 x 2.0 x 2.2 cm, volume 6.2 mL. Previously: 2.1 x 1.9 x 2.7 cm, volume 5.6 mL. Nodule characteristics: Composition: Mixed cystic and solid (1). Echogenicity: Hypoechoic (2). Shape: Not taller than wide (0). Margins: Smooth (0). Echogenic Foci: Macrocalcifications (1). ACR TI-RADS total points: 4 Previous: 2 ACR TI-RADS category: 4 Previous: 2 Significant change in size (>/= 20% in 2 dimensions and minimal increase of 2 mm or 50% or greater increase in volume): Yes Change in features: Yes Change in ACR TI-RADS risk category: Yes 4. Location: Left mid/lower pole. Size: 1.0 x 0.7 x 0.7 cm, volume 0.24 mL. Previously: 0.6 x 0.4 x 0.5 cm, volume 0.06 mL. Nodule characteristics: Composition: Solid/almost completely solid (2). Echogenicity: Hypoechoic (2). Shape: Not taller than wide (0). Margins: Smooth (0). Echogenic Foci: None (0). ACR TI-RADS total points: 4 Previous: 2 ACR TI-RADS category: 4 Previous: 2 Significant change in size (>/= 20% in 2 dimensions and minimal increase of 2 mm or 50% or greater increase in volume): Yes Change in features: No Change in ACR TI-RADS risk category: No 5. Location: Left lower pole/isthmus. Size: 1.1 x 0.8 x 0.9 cm, volume 0.44 mL. Previously: 1.0 x 0.7 x 1.0 cm, volume 0.3 mL. Nodule characteristics: Composition: Solid (2). Echogenicity: Hypoechoic (2). Shape: Not taller than wide (0). Margins: Smooth (0). Echogenic Foci: None (0). ACR TI-RADS total points: 4 Previous: 3 ACR TI-RADS category: 4 Previous: 3 Significant change in size (>/= 20% in 2 dimensions and minimal increase of 2 mm or 50% or greater increase in volume): No Change in features: No Change in ACR TI-RADS risk category: No NODES: No lymphadenopathy is seen in the tissue surrounding the thyroid gland. US/US thyroid IMPRESSION: Heterogeneous multinodular thyroid gland. A 2.7 cm TR 4 nodule in the left mid pole is increase in size and slightly more hypoechoic, if not previously obtained, further evaluation with FNA is recommended. A 1 cm TR 4 nodule in the left mid to lower pole is also increase in size. Recommend follow-up with ultrasound in one year. An additional 1.1 cm TR 4 nodule in the left lower pole is unchanged. Recommend follow-up with ultrasound in one year. Labs from 11/29 showed TSH of 0.04, free T4 of 0.77, free T3 of 3.7. Thyroid uptake and scan from December of 2023 showed increased activity in the left side of the lobe however with decreased uptake in the region of the left dominant nodule concerning for a cold nodule. Currently denies any dysphagia or hoarseness of voice. Denies sensation of swelling in the neck or difficulty breathing while lying flat. Denies any tenderness in the neck. Denies any palpitations, tremors, weight loss, frequent bowel movements. Denies any ocular complaints, blurred or double vision. Mother had thyroid issues Denies hair loss, dry skin, heat or cold intolerance, weight gain, confusion. Denies any history of head or neck irradiation. Denies any family history of thyroid cancer. No biotin supplements. Review of systems Constitutional: no fevers, chills or weight loss HEENT: no changes in vision Cardiac: No chest pain, discomfort or palpitations. Pulmonary: No SOB GI:No abdominal pain, no nausea or vomiting, no anorexia, no blood in stool : no burning micturition, dysuria or increase in urinary frequency Neurologic: No dizziness, no weakness in extremities MSK: no back pain or joint stiffness Physical exam General: sitting comfortably in bed in no acute distress HEENT: normocephalic/atraumatic, moist oral mucosa Neck: supple, no palpable nodules Cardiac: normal heart sounds Pulm: normal breath sounds B/L, no added breath sounds Abd: not distended, no tenderness Extremities: no edema, no signs of myxedema Neuro: AAO x3, Speech: normal, no facial droop, moving all 4 extremities Skin: no rash PFSH Medical History (Updated 12/22/23 @ 10:38 by Ekta Castillo MD) Subclinical hyperthyroidism Multiple thyroid nodules Increased BMI Diabetes Elevated cholesterol HTN (hypertension) Surgical History Hx of hand surgery History of esophagogastroduodenoscopy (EGD) History of esophagogastroduodenoscopy (EGD) H/O colonoscopy Social History Second Hand Smoke Exposure: No Current occupational status: employed 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 Physical Exam Vital Signs: Last Vital Signs Pulse 64 12/22/23 10:08 BP 122/84 12/22/23 10:08 BMI result Body Mass Index 31.2 Results Reviewed Results Reviewed: Laboratory Tests 11/08/23 14:15 TSH 0.24 L Free T4 0.77 Free T3 3.7 I reviewed the imaging below myself Thyroid uptake and scan December [address] [address] Nuclear Medicine Report Signed Patient: Ike Meyer MR#: [id number] : 1960 Acct:[id number] Age/Sex: 63 / M ADM Date: 12/15/23 Loc: [facility] Attending Dr: José Miguel Matthews MD Ordering Physician: José Miguel Matthews MD Date of Service: 12/15/23 Procedure(s): NM thyroid w uptake Accession Number(s): [id number] cc: José Miguel Matthews MD; Estevan Knott MD~ EXAMINATION: THYROID UPTAKE AND SCAN CLINICAL INFORMATION: 63-year-old male with clinical diagnosis of nontoxic multinodular goiter. COMPARISON: Thyroid ultrasound done on 08/09/2023 and 12/09/2020. TECHNIQUE: Following the oral administration of 293 microcuries of I-123 sodium iodide, thyroid uptake was performed and expressed as a percentage of the administrated dose. Gamma scintillation camera images of the thyroid in the anterior and right and left anterior oblique views were obtained using a pinhole collimator following the administration of 10.0 mCi Tc-99m pertechnetate. FINDINGS: The uptake is 6.89% at 4 hours and 15.4% at 24 hours (Normal radioiodine uptake at 4 to 6 hours is about 5-15% and at 24 hours is 10% to 30%). The radioiodine uptake is normal. The radiopertechnetate thyroid scintigram demonstrates the thyroid gland to be normal in position. The left lobe of the thyroid gland is asymmetrically enlarged, shows mild diffuse asymmetric increased tracer avidity as compared to the right lobe. Previous sonographic detected sub-5 mm and subcentimeter nodules seen at the right upper to mid pole are not reproduced in the current study. The dominant 2.7 cm mixed solid, cystic nodules seen at the mid part of the left lobe of the thyroid gland however is visualized and appear predominantly photopenic. The 2 other smaller approximately 1.1 and 1.0 cm nodules seen at mid to inferior pole are not reproduced on the study. The trapping function appears normal. NM/NM thyroid w uptake IMPRESSION: * Normal radioiodine uptake. * Abnormal morphologic appearance of the thyroid gland showing asymmetric increased tracer avidity and prominence of the left lobe of the thyroid gland and superimposed photopenic nodule at mid part of the left lobe of the gland, appears to correspond with the dominant 2.7 cm mixed solid, cystic nodule seen on most recent prior ultrasound dated 08/09/2023. * Ultrasound-guided fine-needle aspiration of the above-mentioned photopenic nodule may be considered for further clarification given its photopenic appearance on the scintigraphic images and interval increase in size as was documented on prior thyroid ultrasound dated 08/09/2023. Thyroid ultrasound August [address] [address] Nuclear Medicine Report Signed Patient: Ike Meyer MR#: [id number] : 1960 Acct:[id number] Age/Sex: 63 / M ADM Date: 12/15/23 Loc: [facility] Attending Dr: José Miguel Matthews MD Ordering Physician: José Miguel Matthews MD Date of Service: 12/15/23 Procedure(s): NM thyroid w uptake Accession Number(s): [id number] cc: José Miguel Matthews MD; Estevan Knott MD~ EXAMINATION: THYROID UPTAKE AND SCAN CLINICAL INFORMATION: 63-year-old male with clinical diagnosis of nontoxic multinodular goiter. COMPARISON: Thyroid ultrasound done on 08/09/2023 and 12/09/2020. TECHNIQUE: Following the oral administration of 293 microcuries of I-123 sodium iodide, thyroid uptake was performed and expressed as a percentage of the administrated dose. Gamma scintillation camera images of the thyroid in the anterior and right and left anterior oblique views were obtained using a pinhole collimator following the administration of 10.0 mCi Tc-99m pertechnetate. FINDINGS: The uptake is 6.89% at 4 hours and 15.4% at 24 hours (Normal radioiodine uptake at 4 to 6 hours is about 5-15% and at 24 hours is 10% to 30%). The radioiodine uptake is normal. The radiopertechnetate thyroid scintigram demonstrates the thyroid gland to be normal in position. The left lobe of the thyroid gland is asymmetrically enlarged, shows mild diffuse asymmetric increased tracer avidity as compared to the right lobe. Previous sonographic detected sub-5 mm and subcentimeter nodules seen at the right upper to mid pole are not reproduced in the current study. The dominant 2.7 cm mixed solid, cystic nodules seen at the mid part of the left lobe of the thyroid gland however is visualized and appear predominantly photopenic. The 2 other smaller approximately 1.1 and 1.0 cm nodules seen at mid to inferior pole are not reproduced on the study. The trapping function appears normal. NM/NM thyroid w uptake IMPRESSION: * Normal radioiodine uptake. * Abnormal morphologic appearance of the thyroid gland showing asymmetric increased tracer avidity and prominence of the left lobe of the thyroid gland and superimposed photopenic nodule at mid part of the left lobe of the gland, appears to correspond with the dominant 2.7 cm mixed solid, cystic nodule seen on most recent prior ultrasound dated 08/09/2023. * Ultrasound-guided fine-needle aspiration of the above-mentioned photopenic nodule may be considered for further clarification given its photopenic appearance on the scintigraphic images and interval increase in size as was documented on prior thyroid ultrasound dated 08/09/2023. Assessment & Plan Assessment & Plan (1) Multiple thyroid nodules: Code(s): E04.2 - Nontoxic multinodular goiter Category: Medical Plan: 63-year-old male no family history of thyroid cancer, with no personal history of head or neck radiation coming in for follow-up of multinodular goiter. Has multiple thyroid nodules with left lobe dominant nodule measuring 2.7 cm with macrocalcification. The nodule is of intermediate to high suspicion by LAURA characteristics, meets criteria for FNA. Hand biopsy of the nodule in 2014, however was AUS but molecular testing was not pursued it seems like from the records. Patient does not recall what was done. He was also noted to have a TSH of 0.24 with normal free T4 and free T3. Does not have any symptoms of hyperthyroidism. Given the mildly low TSH level, Concerned whether this left dominant nodule is possibly a hyperfunctioning which would reduce the concern for possible thyroid cancer in this nodule. However thyroid uptake and scan in 12/30 showed increased activity in the left side with photopenic left lobe nodule concerning for a cold nodule. Hence we will go ahead with FNA. Plan: -scheduling for FNA of 2.7 cm left dominant nodule in my biopsy clinic (2) Subclinical hyperthyroidism: Code(s): E05.90 - Thyrotoxicosis, unspecified without thyrotoxic crisis or storm Category: Medical Plan: Patient also noted to have a TSH of 0.24 in November 29. Normal free T4 and free T3 suggestive of subclinical hyperthyroidism. Given his history of nodules, likely has hyper functioning nodules. However thyroid uptake and scan showed increased activity in the left lobe, concerning for hyper functioning nodules but with photopenic appearance of the left dominant nodule as described above for which we are going to pursue fine-needle aspiration. Criteria for treating subclinical hyperthyroidism as TSH level less than 0.1 or age above 65 or history of heart disease, osteoporosis. He does not meet criteria for treatment. For now I will plan to repeat TFTs in 1-2 months. Plan See above Orders: Orders 2 Thyroid Stimulating Immunoglob 4 Weeks E04.2 - Nontoxic multinodular goiter, E05.90 - Thyrotoxicosis, unspecified without thyrotoxic crisis or storm Thyroid Stimulating Hormone 4 Weeks E04.2 - Nontoxic multinodular goiter, E05.90 - Thyrotoxicosis, unspecified without thyrotoxic crisis or storm Free T4 (Free Thyroxine) 4 Weeks E04.2 - Nontoxic multinodular goiter, E05.90 - Thyrotoxicosis, unspecified without thyrotoxic crisis or storm Triiodothyronine T3 Total 4 Weeks E04.2 - Nontoxic multinodular goiter, E05.90 - Thyrotoxicosis, unspecified without thyrotoxic crisis or storm Patient Instructions: do labs in 4 weeks plan for biopsy as discussed Coding Level of Care Code Est Pt Level 4 (40209) Diagnoses Multiple thyroid nodules E04.2 Subclinical hyperthyroidism E05.90
== END 2023-12-22 10:48 | disposition home or self-care (01) ==
PROVIDERS: PCP Family Medicine; Visit Provider Student in an Organized Health Care Education/Training Program
DX: E04.2 Nontoxic multinodular goiter (principal); E05.90 Thyrotoxicosis, unspecified without thyrotoxic crisis or storm
CPT/HCPCS: 99214

== ENCOUNTER → 2023-12-22 09:54 | Outpatient (BNVA) | payer OTHER, SELFPAY | PROVIDERS: PCP Family Medicine; Visit Provider Student in an Organized Health Care Education/Training Program ==

== ENCOUNTER 2024-01-04 06:03 | Outpatient (REF) | payer OTHER, SELFPAY ==
[2024-01-04 07:17] LABS: Estimated Average Glucose 177 mg/dL; Hemoglobin A1c % 7.8 % (<6.0)
[2024-01-04 07:40] LABS: Alanine Aminotransferase 24 U/L (0-40); Anion Gap 16 (12-20); Aspartate Amino Transferase 16 U/L (5-37); Blood Urea Nitrogen 18 mg/dL (9-16); Carbon Dioxide 22 mmol/L (22-29); Chloride 104 mmol/L (96-108); Estimated Glomerular Filt Rate > 60; Glucose Fasting 249 mg/dL (60-99); Potassium 5.2 mmol/L (3.3-5.1); Sodium 137 mmol/L (135-145)
[2024-01-04 09:23] LABS: Creatinine Urine 98.71 mg/dL; Microalbum/Creatinine Ratio Ur 197.5 ug/mg cr (<30)
== END 2024-01-04 06:04 | disposition home or self-care (01) ==
LOC: HO.LAB 06:03
PROVIDERS: PCP Family Medicine; Visit Provider Family Medicine
DX: E78.00 Pure hypercholesterolemia, unspecified (principal); I10 Essential (primary) hypertension; E11.9 Type 2 diabetes mellitus without complications; Z79.899 Other long term (current) drug therapy
CPT/HCPCS: 36415; 80051; 82043; 82550; 82565; 82570; 82947; 83036; 84450; 84460; 84520

== ENCOUNTER 2024-01-18 08:48 | Outpatient (REF) | payer OTHER, SELFPAY ==
--- NOTE | 2024-01-18 09:28 | PM.PROC ---
Brief Operative Note Date of procedure: 01/18/24 Pre-op diagnosis: left mid lobe 2.7 cm thyroid nodule Post-op diagnosis: same Procedure: THYROID FINE NEEDLE ASPIRATION PROCEDURE NOTE ? PROCEDURE PERFORMED: Ultrasound-guided FNA of thyroid nodule ? OPERATORS: Dr. Ekta Castillo ? INDICATION:2.7 cm left-sided thyroid nodule; FNA performed to assess for malignancy ? DESCRIPTION OF PROCEDURE: The indications for FNA (to assess for malignancy) were reviewed with the patient in detail. Potential complications (e.g., bleeding, infection, damage to local structures, absence of clear diagnosis after FNA) were reviewed. Alternatives to FNA including conservative observation or surgery were described. The patient understood and agreed to proceed. This was documented by the signing of the written informed consent form. A time-out was performed to confirm the patient's identity and the site of planned FNA. The nodule of interest was identified using ultrasound (14 MHz linear array probe). The site of FNA was then draped in the usual fashion and carefully cleaned and prepared using chloraprep. The skin and subcutaneous tissue at the previously-identified site of needle insertion were iced and sprayed with numbing spray. Under ultrasound guidance, _5_ passes were performed using a 1.5-inch, 22-gauge needle, and sample was obtained via capillary action. The needle tip was clearly visualized to be within the nodule at the time of sampling for 4__ of _5_ passes [Insert image recorded as part of the procedure] The patient tolerated the procedure well. There were no immediate complications. A small adhesive bandage was applied, and the patient was advised to take acetaminophen (rather than NSAIDs) for any discomfort and to report any signs of inflammation/infection or marked swelling. IMPRESSION: Technically successful ultrasound-guided fine needle aspiration of 2.7cm left-sided thyroid nodule. PLAN: The patient was advised that I will provide follow-up regarding the cytology result and any subsequent plans. Ekta Castillo MD Condition: stable Disposition: same day
== END 2024-01-18 08:49 | disposition home or self-care (01) ==
LOC: HO.US 08:48
PROVIDERS: PCP Family Medicine; Visit Provider Student in an Organized Health Care Education/Training Program
DX: E04.2 Nontoxic multinodular goiter (principal)
CPT/HCPCS: 10005; 88173; 88305

== ENCOUNTER → 2024-01-18 08:48 | Outpatient (BNV) | payer OTHER, SELFPAY | PROVIDERS: PCP Family Medicine; Visit Provider Student in an Organized Health Care Education/Training Program | DX: E04.2 Nontoxic multinodular goiter (principal) | CPT/HCPCS: 10005 ==

== ENCOUNTER 2024-02-08 12:33 | Outpatient (AMB) | payer OTHER, SELFPAY ==
[2024-02-08 12:49] VITALS: BP 160/88; PULSE 62; BMI 31.2
--- NOTE | 2024-02-08 12:49 | A.OFFVIS_ITS ---
Vital Signs 3 02/08/24 12:49 02/08/24 13:07 Height 5 ft 9 in Weight 210 lb 15.718 oz BMI 31.2 BP 160/88 H 150/90 H Blood Pressure Location Lt brachial Rt brachial Position Sitting Pulse 62 Pulse Source Pulse Oximeter Intake Visit Reasons: F/u-Thyroid biopsy-conf Intake Note: Patient present today for thyroid biopsy follow up visit. Dial Brusher Required: No Accompanied by: Self / Same As Patient Allergies tree nut [TREE NUT] Allergy (Unknown, Verified 02/08/24 12:53) ANGIOEDEMA HPI Comments Details: 63 YO M with who is seen for follow-up of multinodular thyroid. HPI Was initially diagnosed with multinodular thyroid in 2014 , had FNA of his left dominant nodule per records which was AUS. Scanned records do not show molecular testing. Over the years he has had some serial ultrasounds. Most recent thyroid ultrasound in 08/2023 as below: Ultrasound .Right Thyroid Lobe: 4.6 x 1.6 x 1.7 cm, volume 6.8 mL. Previously 4.7 x 2.0 x 1.6 cm, volume 7.9 mL. Parenchyma: The gland echotexture is heterogeneous. Thyroid vascularity is normal. Left Thyroid Lobe: 4.3 x 2.3 x 2.4 cm, volume 11.9 mL. Previously 5.1 x 2.6 x 2.7 cm, volume 18.8 mL. Parenchyma: The gland echotexture is heterogeneous. Thyroid vascularity is normal. Isthmus: 0.6 cm in maximum AP dimension. Previously 0.5 cm. Estimated total number of nodules greater than or equal to 1 cm: 2. Inspector Soldering nodules are described as follows: 1. Location: Right upper pole. Size: 0.3 x 0.2 x 0.4 cm, volume 0.08 mL. Previously: 0.3 x 0.2 x 0.3 cm, volume 0.09 mL. Nodule characteristics: Composition: Cystic(0). ACR TI-RADS total points: 0 Previous: 0 ACR TI-RADS category: 1 Previous: 1 Significant change in size (>/= 20% in 2 dimensions and minimal increase of 2 mm or 50% or greater increase in volume): No Change in features: No Change in ACR TI-RADS risk category: No 2. Location: Right mid pole. Size: 0.7 x 0.5 x 0.6 cm, volume 0.11 mL. Previously: Not documented, new. Nodule characteristics: Composition: Solid/almost completely solid (2). Echogenicity: Cannot be determined (1). Shape: Not taller than wide (0). Margins: Ill-defined (0). Echogenic Foci: None (0). ACR TI-RADS total points: 3 ACR TI-RADS category: 3 3. Location: Left mid pole. Size: 2.7 x 2.0 x 2.2 cm, volume 6.2 mL. Previously: 2.1 x 1.9 x 2.7 cm, volume 5.6 mL. Nodule characteristics: Composition: Mixed cystic and solid (1). Echogenicity: Hypoechoic (2). Shape: Not taller than wide (0). Margins: Smooth (0). Echogenic Foci: Macrocalcifications (1). ACR TI-RADS total points: 4 Previous: 2 ACR TI-RADS category: 4 Previous: 2 Significant change in size (>/= 20% in 2 dimensions and minimal increase of 2 mm or 50% or greater increase in volume): Yes Change in features: Yes Change in ACR TI-RADS risk category: Yes 4. Location: Left mid/lower pole. Size: 1.0 x 0.7 x 0.7 cm, volume 0.24 mL. Previously: 0.6 x 0.4 x 0.5 cm, volume 0.06 mL. Nodule characteristics: Composition: Solid/almost completely solid (2). Echogenicity: Hypoechoic (2). Shape: Not taller than wide (0). Margins: Smooth (0). Echogenic Foci: None (0). ACR TI-RADS total points: 4 Previous: 2 ACR TI-RADS category: 4 Previous: 2 Significant change in size (>/= 20% in 2 dimensions and minimal increase of 2 mm or 50% or greater increase in volume): Yes Change in features: No Change in ACR TI-RADS risk category: No 5. Location: Left lower pole/isthmus. Size: 1.1 x 0.8 x 0.9 cm, volume 0.44 mL. Previously: 1.0 x 0.7 x 1.0 cm, volume 0.3 mL. Nodule characteristics: Composition: Solid (2). Echogenicity: Hypoechoic (2). Shape: Not taller than wide (0). Margins: Smooth (0). Echogenic Foci: None (0). ACR TI-RADS total points: 4 Previous: 3 ACR TI-RADS category: 4 Previous: 3 Significant change in size (>/= 20% in 2 dimensions and minimal increase of 2 mm or 50% or greater increase in volume): No Change in features: No Change in ACR TI-RADS risk category: No NODES: No lymphadenopathy is seen in the tissue surrounding the thyroid gland. US/US thyroid IMPRESSION: Heterogeneous multinodular thyroid gland. A 2.7 cm TR 4 nodule in the left mid pole is increase in size and slightly more hypoechoic, if not previously obtained, further evaluation with FNA is recommended. A 1 cm TR 4 nodule in the left mid to lower pole is also increase in size. Recommend follow-up with ultrasound in one year. An additional 1.1 cm TR 4 nodule in the left lower pole is unchanged. Recommend follow-up with ultrasound in one year. Labs from 11/29 showed TSH of 0.24, free T4 of 0.77, free T3 of 3.7. Thyroid uptake and scan from December of 2023 showed increased activity in the left side of the lobe however with decreased uptake in the region of the left dominant nodule concerning for a cold nodule. 01/18/24 :Underwent FNA of the left 2.7 cm nodule whihc was AUS with nuclear atypia, Afirma could not be run due to low RNA yield. He is here today to discuss these results. Currently denies any dysphagia or hoarseness of voice. Denies sensation of swelling in the neck or difficulty breathing while lying flat. Denies any tenderness in the neck. Denies any palpitations, tremors, weight loss, frequent bowel movements. Denies any ocular complaints, blurred or double vision. Mother had thyroid issues Denies hair loss, dry skin, heat or cold intolerance, weight gain, confusion. Denies any history of head or neck irradiation. Denies any family history of thyroid cancer. No biotin supplements. Review of systems Constitutional: no fevers, chills or weight loss HEENT: no changes in vision Cardiac: No chest pain, discomfort or palpitations. Physical exam General: sitting comfortably in no acute distress HEENT: normocephalic/atraumatic Cardiac: normal heart sounds Pulm: in no pulmonary distress Abd: not distended, no tenderness Extremities: no edema, no signs of myxedema [facility] Medical History (Updated 12/22/23 @ 10:38 by Ekta Castillo MD) Subclinical hyperthyroidism Multiple thyroid nodules Increased BMI Diabetes Elevated cholesterol HTN (hypertension) Surgical History Hx of hand surgery History of esophagogastroduodenoscopy (EGD) History of esophagogastroduodenoscopy (EGD) H/O colonoscopy Social History Second Hand Smoke Exposure: No Current occupational status: employed Current occupation: [employer]. Results Reviewed Results Reviewed: Laboratory Tests 11/08/23 14:15 TSH 0.24 L Free T4 0.77 Free T3 3.7 Thyroid uptake and scan December 30 EXAMINATION: THYROID UPTAKE AND SCAN CLINICAL INFORMATION: 63-year-old male with clinical diagnosis of nontoxic multinodular goiter. COMPARISON: Thyroid ultrasound done on 08/09/2023 and 12/09/2020. TECHNIQUE: Following the oral administration of 293 microcuries of I-123 sodium iodide, thyroid uptake was performed and expressed as a percentage of the administrated dose. Gamma scintillation camera images of the thyroid in the anterior and right and left anterior oblique views were obtained using a pinhole collimator following the administration of 10.0 mCi Tc-99m pertechnetate. FINDINGS: The uptake is 6.89% at 4 hours and 15.4% at 24 hours (Normal radioiodine uptake at 4 to 6 hours is about 5-15% and at 24 hours is 10% to 30%). The radioiodine uptake is normal. The radiopertechnetate thyroid scintigram demonstrates the thyroid gland to be normal in position. The left lobe of the thyroid gland is asymmetrically enlarged, shows mild diffuse asymmetric increased tracer avidity as compared to the right lobe. Previous sonographic detected sub-5 mm and subcentimeter nodules seen at the right upper to mid pole are not reproduced in the current study. The dominant 2.7 cm mixed solid, cystic nodules seen at the mid part of the left lobe of the thyroid gland however is visualized and appear predominantly photopenic. The 2 other smaller approximately 1.1 and 1.0 cm nodules seen at mid to inferior pole are not reproduced on the study. The trapping function appears normal. NM/NM thyroid w uptake IMPRESSION: * Normal radioiodine uptake. * Abnormal morphologic appearance of the thyroid gland showing asymmetric increased tracer avidity and prominence of the left lobe of the thyroid gland and superimposed photopenic nodule at mid part of the left lobe of the gland, appears to correspond with the dominant 2.7 cm mixed solid, cystic nodule seen on most recent prior ultrasound dated 08/09/2023. * Ultrasound-guided fine-needle aspiration of the above-mentioned photopenic nodule may be considered for further clarification given its photopenic appearance on the scintigraphic images and interval increase in size as was documented on prior thyroid ultrasound dated 08/09/2023. Thyroid ultrasound August 30 US THYROID CLINICAL INFORMATION: Nontoxic multinodular goiter. COMPARISON: Thyroid ultrasound 12/09/2020. TECHNIQUE: Linear transducer grayscale and color Doppler examination with attention to the region of the thyroid. FINDINGS: SIZE: Measurements of the thyroid lobes and nodules are given in sagittal, anteroposterior and transverse dimensions respectively. Right Thyroid Lobe: 4.6 x 1.6 x 1.7 cm, volume 6.8 mL. Previously 4.7 x 2.0 x 1.6 cm, volume 7.9 mL. Parenchyma: The gland echotexture is heterogeneous. Thyroid vascularity is normal. Left Thyroid Lobe: 4.3 x 2.3 x 2.4 cm, volume 11.9 mL. Previously 5.1 x 2.6 x 2.7 cm, volume 18.8 mL. Parenchyma: The gland echotexture is heterogeneous. Thyroid vascularity is normal. Isthmus: 0.6 cm in maximum AP dimension. Previously 0.5 cm. Estimated total number of nodules greater than or equal to 1 cm: 2. Inspector Soldering nodules are described as follows: 1. Location: Right upper pole. Size: 0.3 x 0.2 x 0.4 cm, volume 0.08 mL. Previously: 0.3 x 0.2 x 0.3 cm, volume 0.09 mL. Nodule characteristics: Composition: Cystic(0). ACR TI-RADS total points: 0 Previous: 0 ACR TI-RADS category: 1 Previous: 1 Significant change in size (>/= 20% in 2 dimensions and minimal increase of 2 mm or 50% or greater increase in volume): No Change in features: No Change in ACR TI-RADS risk category: No 2. Location: Right mid pole. Size: 0.7 x 0.5 x 0.6 cm, volume 0.11 mL. Previously: Not documented, new. Nodule characteristics: Composition: Solid/almost completely solid (2). Echogenicity: Cannot be determined (1). Shape: Not taller than wide (0). Margins: Ill-defined (0). Echogenic Foci: None (0). ACR TI-RADS total points: 3 ACR TI-RADS category: 3 3. Location: Left mid pole. Size: 2.7 x 2.0 x 2.2 cm, volume 6.2 mL. Previously: 2.1 x 1.9 x 2.7 cm, volume 5.6 mL. Nodule characteristics: Composition: Mixed cystic and solid (1). Echogenicity: Hypoechoic (2). Shape: Not taller than wide (0). Margins: Smooth (0). Echogenic Foci: Macrocalcifications (1). ACR TI-RADS total points: 4 Previous: 2 ACR TI-RADS category: 4 Previous: 2 Significant change in size (>/= 20% in 2 dimensions and minimal increase of 2 mm or 50% or greater increase in volume): Yes Change in features: Yes Change in ACR TI-RADS risk category: Yes 4. Location: Left mid/lower pole. Size: 1.0 x 0.7 x 0.7 cm, volume 0.24 mL. Previously: 0.6 x 0.4 x 0.5 cm, volume 0.06 mL. Nodule characteristics: Composition: Solid/almost completely solid (2). Echogenicity: Hypoechoic (2). Shape: Not taller than wide (0). Margins: Smooth (0). Echogenic Foci: None (0). ACR TI-RADS total points: 4 Previous: 2 ACR TI-RADS category: 4 Previous: 2 Significant change in size (>/= 20% in 2 dimensions and minimal increase of 2 mm or 50% or greater increase in volume): Yes Change in features: No Change in ACR TI-RADS risk category: No 5. Location: Left lower pole/isthmus. Size: 1.1 x 0.8 x 0.9 cm, volume 0.44 mL. Previously: 1.0 x 0.7 x 1.0 cm, volume 0.3 mL. Nodule characteristics: Composition: Solid (2). Echogenicity: Hypoechoic (2). Shape: Not taller than wide (0). Margins: Smooth (0). Echogenic Foci: None (0). ACR TI-RADS total points: 4 Previous: 3 ACR TI-RADS category: 4 Previous: 3 Significant change in size (>/= 20% in 2 dimensions and minimal increase of 2 mm or 50% or greater increase in volume): No Change in features: No Change in ACR TI-RADS risk category: No NODES: No lymphadenopathy is seen in the tissue surrounding the thyroid gland. US/US thyroid IMPRESSION: Heterogeneous multinodular thyroid gland. A 2.7 cm TR 4 nodule in the left mid pole is increase in size and slightly more hypoechoic, if not previously obtained, further evaluation with FNA is recommended. A 1 cm TR 4 nodule in the left mid to lower pole is also increase in size. Recommend follow-up with ultrasound in one year. An additional 1.1 cm TR 4 nodule in the left lower pole is unchanged. Recommend follow-up with ultrasound in one year. Other subcentimeter thyroid nodules do not meet size criteria for further evaluation. Assessment & Plan Assessment & Plan (1) Multiple thyroid nodules: Code(s): E04.2 - Nontoxic multinodular goiter Category: Medical Plan: 63-year-old male no family history of thyroid cancer, with no personal history of head or neck radiation coming in for follow-up of multinodular goiter. Has multiple thyroid nodules with left lobe dominant nodule measuring 2.7 cm with macrocalcification. The nodule is of intermediate to high suspicion by LAURA characteristics Had biopsy of the nodule in 2014, however was AUS but molecular testing was not pursued it seems like from the records. Patient does not recall what was done. He was also noted to have a TSH of 0.24 with normal free T4 and free T3. Does not have any symptoms of hyperthyroidism. Given the mildly low TSH level, Concerned whether this left dominant nodule is possibly a hyperfunctioning which would reduce the concern for possible thyroid cancer in this nodule. However thyroid uptake and scan in 12/30 showed increased activity in the left side with photopenic left lobe nodule concerning for a cold nodule. Underwent FNA of the left 2.7 cm nodule 01/18/24 whihc was AUS with nuclear atypia, Afirma could not be run due to low RNA yield. I discussed with the patient that low yield samples can result about 5-15% of the time, while we do have a good sample saying he has nuclear atypia, the Afirma gene panel could not be run due to to low cellularity/low RNA yield. Given the features of this nodule, it is intermediate to high suspicion by LAURA criteria, which harbors about a 20-50% risk malignancy. Hence would recommend repeating the biopsy in 3 months. Patient is agreeable. Plan: -scheduling for repeat FNA of 2.7 cm left dominant nodule in my biopsy clinic in May 2023 with follow up 1-2 weeks after (2) Subclinical hyperthyroidism: Code(s): E05.90 - Thyrotoxicosis, unspecified without thyrotoxic crisis or storm Category: Medical Plan: Patient also noted to have a TSH of 0.24 in November 29. Normal free T4 and free T3 suggestive of subclinical hyperthyroidism. Given his history of nodules, likely has hyper functioning nodules. However thyroid uptake and scan showed increased activity in the left lobe, concerning for hyper functioning nodules but with photopenic appearance of the left dominant nodule as described above for which we are going to pursue fine-needle aspiration. Criteria for treating subclinical hyperthyroidism as TSH level less than 0.1 or age above 65 or history of heart disease, osteoporosis. He does not meet criteria for treatment. For now I will plan to repeat TFTs in 1 months. Plan See above Orders: Orders 2 Thyroid Stimulating Hormone 1 Month E05.90 - Thyrotoxicosis, unspecified without thyrotoxic crisis or storm Free T4 (Free Thyroxine) 1 Month E05.90 - Thyrotoxicosis, unspecified without thyrotoxic crisis or storm Triiodothyronine T3 Total 1 Month E05.90 - Thyrotoxicosis, unspecified without thyrotoxic crisis or storm US biopsy thyroid 05/16/24 E04.2 - Nontoxic multinodular goiter Patient Instructions: Pls do blood work in 1 month Repeat biopsy in May of left nodule Coding Level of Care Code Tele Est Pt Level 3 (02332) Diagnoses Multiple thyroid nodules E04.2 Subclinical hyperthyroidism E05.90
[2024-02-08 13:07] VITALS: BP 150/90
== END 2024-02-08 13:08 | disposition home or self-care (01) ==
PROVIDERS: PCP Family Medicine; Visit Provider Student in an Organized Health Care Education/Training Program
DX: E04.2 Nontoxic multinodular goiter (principal); E05.90 Thyrotoxicosis, unspecified without thyrotoxic crisis or storm
CPT/HCPCS: 99213

== ENCOUNTER → 2024-02-08 12:33 | Outpatient (BNVA) | payer OTHER, SELFPAY | PROVIDERS: PCP Family Medicine; Visit Provider Student in an Organized Health Care Education/Training Program ==

== ENCOUNTER 2024-05-03 10:57 | Outpatient (AMB) | payer OTHER, SELFPAY ==
--- NOTE | 2024-05-03 10:59 | MHC.OFFVIS ---
Vital Signs 05/03/24 11:06 Height 5 ft 9 in Weight 208 lb 5.389 oz BMI 30.8 BP 128/78 Blood Pressure Location Lt brachial Position Sitting Pulse 65 Pulse Source Pulse Oximeter Intake Visit Reasons: DM Intake Note: Patient present today for new problem of Type 2 Diabetes Mellitus. 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 He also sees me for multinodular thyroid not addressed today , focus of the visit is DM. Type 2 DM HPI Was initially diagnosed with multinodular thyroid in 2014 , had FNA of his left dominant nodule per records which was AUS. Scanned records do not show molecular testing. Over the years he has had some serial ultrasounds. Was previously seeing [facility] endocrinology or [facility] about 3 years ago . Diagnosed with type 2 DM in 2019. Current therapy Metformin 1000 mg at bedtime Was getting Gi intolerance with BID dosing OZempic o.5 mg weekly no GI intolrance been on it at least 6 months now Prior therapy Switched from Trulicuty to Ozempic due to insurance issues 6 months ago Doesnt rememebr Trulicity dose Family history Father : type 2 DM FIb 4 score 1.45 excludes advanced liver fibrosis Alcohol use : 20 drinks in a week Exercise : walk 3 times a weeks 3 miles a day ,active at work Diet: not interested at thi time to meet the nutritionis t SMBgs: Didnt bring in glucometer Checks fasting from recall mid to upper 200s Weight stable : only los t4 lbs since summer 2023 Never smoker Family history of ca: sister breast cancer Complications Eye visit: January 2023, next scheduled for May 2024, no known retinopathy, has macular degenretaion, sees Dr. Danna Jeffrey at ophthalmology [facility] Neuropathy: Denies numbness , tingling in feet No history of CAD or stroke Reports increased urination, and polydipsia Denies any nausea, vomiting, abd pain, no mental status changes. Random Glucose: 350 mg/dl HgA1C: 12.1% On quinapril 20 mg daily for Greg/ ARB On rosuvatsatin 20 mg daily Multinodular goiter: not addressed today Most recent thyroid ultrasound in 08/2023 as below: Ultrasound .Right Thyroid Lobe: 4.6 x 1.6 x 1.7 cm, volume 6.8 mL. Previously 4.7 x 2.0 x 1.6 cm, volume 7.9 mL. Parenchyma: The gland echotexture is heterogeneous. Thyroid vascularity is normal. Left Thyroid Lobe: 4.3 x 2.3 x 2.4 cm, volume 11.9 mL. Previously 5.1 x 2.6 x 2.7 cm, volume 18.8 mL. Parenchyma: The gland echotexture is heterogeneous. Thyroid vascularity is normal. Isthmus: 0.6 cm in maximum AP dimension. Previously 0.5 cm. Estimated total number of nodules greater than or equal to 1 cm: 2. Rental Management Trainee nodules are described as follows: 1. Location: Right upper pole. Size: 0.3 x 0.2 x 0.4 cm, volume 0.08 mL. Previously: 0.3 x 0.2 x 0.3 cm, volume 0.09 mL. Nodule characteristics: Composition: Cystic(0). ACR TI-RADS total points: 0 Previous: 0 ACR TI-RADS category: 1 Previous: 1 Significant change in size (>/= 20% in 2 dimensions and minimal increase of 2 mm or 50% or greater increase in volume): No Change in features: No Change in ACR TI-RADS risk category: No 2. Location: Right mid pole. Size: 0.7 x 0.5 x 0.6 cm, volume 0.11 mL. Previously: Not documented, new. Nodule characteristics: Composition: Solid/almost completely solid (2). Echogenicity: Cannot be determined (1). Shape: Not taller than wide (0). Margins: Ill-defined (0). Echogenic Foci: None (0). ACR TI-RADS total points: 3 ACR TI-RADS category: 3 3. Location: Left mid pole. Size: 2.7 x 2.0 x 2.2 cm, volume 6.2 mL. Previously: 2.1 x 1.9 x 2.7 cm, volume 5.6 mL. Nodule characteristics: Composition: Mixed cystic and solid (1). Echogenicity: Hypoechoic (2). Shape: Not taller than wide (0). Margins: Smooth (0). Echogenic Foci: Macrocalcifications (1). ACR TI-RADS total points: 4 Previous: 2 ACR TI-RADS category: 4 Previous: 2 Significant change in size (>/= 20% in 2 dimensions and minimal increase of 2 mm or 50% or greater increase in volume): Yes Change in features: Yes Change in ACR TI-RADS risk category: Yes 4. Location: Left mid/lower pole. Size: 1.0 x 0.7 x 0.7 cm, volume 0.24 mL. Previously: 0.6 x 0.4 x 0.5 cm, volume 0.06 mL. Nodule characteristics: Composition: Solid/almost completely solid (2). Echogenicity: Hypoechoic (2). Shape: Not taller than wide (0). Margins: Smooth (0). Echogenic Foci: None (0). ACR TI-RADS total points: 4 Previous: 2 ACR TI-RADS category: 4 Previous: 2 Significant change in size (>/= 20% in 2 dimensions and minimal increase of 2 mm or 50% or greater increase in volume): Yes Change in features: No Change in ACR TI-RADS risk category: No 5. Location: Left lower pole/isthmus. Size: 1.1 x 0.8 x 0.9 cm, volume 0.44 mL. Previously: 1.0 x 0.7 x 1.0 cm, volume 0.3 mL. Nodule characteristics: Composition: Solid (2). Echogenicity: Hypoechoic (2). Shape: Not taller than wide (0). Margins: Smooth (0). Echogenic Foci: None (0). ACR TI-RADS total points: 4 Previous: 3 ACR TI-RADS category: 4 Previous: 3 Significant change in size (>/= 20% in 2 dimensions and minimal increase of 2 mm or 50% or greater increase in volume): No Change in features: No Change in ACR TI-RADS risk category: No NODES: No lymphadenopathy is seen in the tissue surrounding the thyroid gland. US/US thyroid IMPRESSION: Heterogeneous multinodular thyroid gland. A 2.7 cm TR 4 nodule in the left mid pole is increase in size and slightly more hypoechoic, if not previously obtained, further evaluation with FNA is recommended. A 1 cm TR 4 nodule in the left mid to lower pole is also increase in size. Recommend follow-up with ultrasound in one year. An additional 1.1 cm TR 4 nodule in the left lower pole is unchanged. Recommend follow-up with ultrasound in one year. Labs from 11/29 showed TSH of 0.24, free T4 of 0.77, free T3 of 3.7. Thyroid uptake and scan from December of 2023 showed increased activity in the left side of the lobe however with decreased uptake in the region of the left dominant nodule concerning for a cold nodule. 01/18/24 :Underwent FNA of the left 2.7 cm nodule whihc was AUS with nuclear atypia, Afirma could not be run due to low RNA yield. He is here today to discuss these results. Currently denies any dysphagia or hoarseness of voice. Denies sensation of swelling in the neck or difficulty breathing while lying flat. Denies any tenderness in the neck. Denies any palpitations, tremors, weight loss, frequent bowel movements. Denies any ocular complaints, blurred or double vision. Mother had thyroid issues Denies hair loss, dry skin, heat or cold intolerance, weight gain, confusion. Denies any history of head or neck irradiation. Denies any family history of thyroid cancer. No biotin supplements. Review of systems Constitutional: no fevers, chills or weight loss HEENT: no changes in vision Cardiac: No chest pain, discomfort or palpitations. Physical exam General: sitting comfortably in no acute distress HEENT: normocephalic/atraumatic Cardiac: normal heart sounds Pulm: in no pulmonary distress Abd: not distended, no tenderness Extremities: no edema, no signs of myxedema Foot exam : not done today [facility] Medical History (Updated 05/03/24 @ 12:55 by Ekta Castillo MD) Hyperlipidemia Type 2 diabetes mellitus Subclinical hyperthyroidism Multiple thyroid nodules Increased BMI Diabetes Elevated cholesterol HTN (hypertension) Surgical History Hx of hand surgery History of esophagogastroduodenoscopy (EGD) History of esophagogastroduodenoscopy (EGD) H/O colonoscopy Social History Second Hand Smoke Exposure: No Current occupational status: employed 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 Physical Exam Vital Signs: Last Vital Signs Pulse 65 05/03/24 11:06 BP 128/78 05/03/24 11:06 BMI result Body Mass Index 30.8 Results AMB Hemoglobin A1c AMB Hemoglobin A1c 12.1 % Last Edit by APARNA Youngblood on 05/03/24 12:33 Results Reviewed Results Reviewed: Laboratory Last Values Glucose (Clinic) 350 mg/dL (60-115) H* 05/03/24 11:10 Assessment & Plan Assessment & Plan (1) Type 2 diabetes mellitus: Code(s): E11.9 - Type 2 diabetes mellitus without complications Category: Medical Qualifiers: Diabetes mellitus skilled nursing insulin use: without skilled nursing use Diabetes mellitus complication status: with kidney complications Diabetes mellitus complication detail: with diabetic microalbuminuria Qualified Code(s): E11.29 - Type 2 diabetes mellitus with other diabetic kidney complication; R80.9 - Proteinuria, unspecified Plan: 64-year-old male with past medical history significant for type 2 diabetes mellitus with establishing care with me for diabetes today. Diagnosed with type 2 diabetes mellitus in 2019, and his A1c used to be around 9%, however had improved control up until earlier this summer 2023 when his A1c was around 7.6% but recently had worsened control of diabetes with uncontrolled hyperglycemia. A1c today 12.1%. His blood sugars are elevated in the 300s, however he denies any nausea, vomiting, abdominal pain, no signs to suggest diabetic ketoacidosis. We will start him on insulin. He is also only checking his sugars once a day, he needs to check at least twice or thrice a day. I will prescribe him a CGM sensor as well we will also have not established with a our clinical trial educator. Discussed with him importance of glycemic control and risks of her hyperglycemia and cardiovascular comorbidities and microvascular complications. Plan: -start insulin Lantus 10 units daily, can titrate up to 12 units if continues to have blood sugars greater than 140 fasting after a week of this dose -increase Ozempic to 1 mg weekly from 0.5 mg weekly -continue metformin 1000 mg daily -education referral placed -obtain out of nutrition referral -advised about cutting down alcohol intake -hypoglycemia education done -discussed importance of 150 minutes a week of exercise -Dexcom G7 prescribed -overdue for eye visit, has follow up in May 2024 Note: He also has microalbuminuria, once we have better glycemic control, we will consider starting SGLT2 inhibitor. He is already on Greg/Arb. (2) Multiple thyroid nodules: Code(s): E04.2 - Nontoxic multinodular goiter Category: Medical Plan: NOT ADDRESSED TODAY 63-year-old male no family history of thyroid cancer, with no personal history of head or neck radiation coming in for follow-up of multinodular goiter. Has multiple thyroid nodules with left lobe dominant nodule measuring 2.7 cm with macrocalcification. The nodule is of intermediate to high suspicion by LAURA characteristics Had biopsy of the nodule in 2014, however was AUS but molecular testing was not pursued it seems like from the records. Patient does not recall what was done. He was also noted to have a TSH of 0.24 with normal free T4 and free T3. Does not have any symptoms of hyperthyroidism. Given the mildly low TSH level, Concerned whether this left dominant nodule is possibly a hyperfunctioning which would reduce the concern for possible thyroid cancer in this nodule. However thyroid uptake and scan in 12/30 showed increased activity in the left side with photopenic left lobe nodule concerning for a cold nodule. Underwent FNA of the left 2.7 cm nodule 01/18/24 whihc was AUS with nuclear atypia, Afirma could not be run due to low RNA yield. -scheduled for repeat FNA of 2.7 cm left dominant nodule in my biopsy clinic in May 2023 with follow up 1-2 weeks after (3) Subclinical hyperthyroidism: Code(s): E05.90 - Thyrotoxicosis, unspecified without thyrotoxic crisis or storm Category: Medical Plan: Patient also noted to have a TSH of 0.24 in November 29. Normal free T4 and free T3 suggestive of subclinical hyperthyroidism. Given his history of nodules, likely has hyper functioning nodules. However thyroid uptake and scan showed increased activity in the left lobe, concerning for hyper functioning nodules but with photopenic appearance of the left dominant nodule as described above for which we are going to pursue fine-needle aspiration. Criteria for treating subclinical hyperthyroidism as TSH level less than 0.1 or age above 65 or history of heart disease, osteoporosis. He does not meet criteria for treatment. I had asked him to repeat his TFTs in 1 month at last visit, however he forgot to do that. Plan: -ordered TSH, free T4 (4) Hyperlipidemia: Code(s): E78.5 - Hyperlipidemia, unspecified Category: Medical Qualifiers: Hyperlipidemia type: mixed hyperlipidemia Qualified Code(s): E78.2 - Mixed hyperlipidemia Plan: Continue rosuvastatin 20 mg daily. Ordered lipid panel Plan See above Orders: Orders Lipid Panel Today E04.2 - Nontoxic multinodular goiter, E05.90 - Thyrotoxicosis, unspecified without thyrotoxic crisis or storm, E11.9 - Type 2 diabetes mellitus without complications Comprehensive [place]. Panel Fast Today E04.2 - Nontoxic multinodular goiter, E05.90 - Thyrotoxicosis, unspecified without thyrotoxic crisis or storm, E11.9 - Type 2 diabetes mellitus without complications Microalbumin, Random (w Creat) Today E04.2 - Nontoxic multinodular goiter, E05.90 - Thyrotoxicosis, unspecified without thyrotoxic crisis or storm, E11.9 - Type 2 diabetes mellitus without complications AMB Hemoglobin A1c Today E11.9 - Type 2 diabetes mellitus without complications, Z13.9 - Encounter for screening, unspecified Vitamin B12 Today E11.9 - Type 2 diabetes mellitus without complications Referrals Diabetes Education Referral E11.9 - Type 2 diabetes mellitus without complications Medications: New semaglutide (Ozempic) 1 mg (0.75 mL) subcut QWEEK 9 mL 4RF blood-glucose sensor (Dexcom G7 Sensor device) As directed every 10 days 9 ea 4RF blood-glucose meter,continuous (Dexcom G7 [employer]) As directed 1 ea 0RF insulin glargine (Lantus Solostar U-100 Insulin) 10 units (0.1 mL) subcut DAILY 15 mL 4RF pen needle, diabetic (Comfort EZ Pen [place]) As directed for injecting insulin daily 100 ea 4RF Patient Instructions: See educator Start insulin 10 units daily at bedtime Check blood sugars fatsing and before administering insulin If morning fasting readings greater than 140 mg/dl after 1 week of using 10 units, please increase to 12 units Increase Ozempic 1 mg weekly Continue metformin See the eye doctor Rule of 15 Treatment for Hypoglycemia (Low blood sugar) If your blood glucose is low (70 and below)*, follow the steps below to treat: Eat or drink something from the list below equal to 15 grams of carbohydrate (carb). Rest for 15 minutes Re-check your blood glucose. If it is still low, (below 70), repeat step 1 above. ? If your next meal is more than an hour away, you will need to eat one carbohydrate choice as a snack to keep your blood glucose from going low again. ?If you can't figure out why you have low blood glucose, call your healthcare provider, as your medicine may need to be adjusted. ?Always carry something with you to treat an insulin reaction. Use food from the list below. ? Foods equal to One Carbohydrate Choice (15 grams of carbohydrate): 3 Glucose ?tablets or 4 Dextrose tablets 4 ounces of fruit juice 5-6 ounces (about 1/2 can) of regular soda such as Coke or Pepsi ? 7-8 gummy or regular Life Savers ? 1 Tbsp. of sugar or jelly NOTE: If your blood sugar is less than 50, double the portion above for a total of 30 gm. ?Carbohydrate. ? Follow meal plan of 45-60 g of consistent carbohydrates at 3 meals each day and 15 g of carbohydrate at 1-2 snacks each day. Coding Level of Care Code Est Pt Level 5 (23105) Diagnoses Type 2 diabetes mellitus with diabetic microalbuminuria, without long-term current use of insulin E11.29; R80.9 Diabetes mellitus skilled nursing insulin use: without salvage determiner use Diabetes mellitus complication status: with kidney complications Diabetes mellitus complication detail: with diabetic microalbuminuria Multiple thyroid nodules E04.2 Subclinical hyperthyroidism E05.90 Mixed hyperlipidemia E78.2 Hyperlipidemia type: mixed hyperlipidemia Time Spent (min) 60
[2024-05-03 11:06] VITALS: BP 128/78; PULSE 65; BMI 30.8
[2024-05-03 11:14] LABS: Glucose, Whole Blood 350 mg/dL (60-115)
== END 2024-05-03 12:14 | disposition home or self-care (01) ==
PROVIDERS: PCP Family Medicine; Visit Provider Student in an Organized Health Care Education/Training Program
DX: E11.29 Type 2 diabetes mellitus with other diabetic kidney complication (principal); R80.9 Proteinuria, unspecified; E04.2 Nontoxic multinodular goiter; E05.90 Thyrotoxicosis, unspecified without thyrotoxic crisis or storm; E78.2 Mixed hyperlipidemia; Z13.9 Encounter for screening, unspecified
CPT/HCPCS: 99215; 99417

== ENCOUNTER → 2024-05-03 10:57 | Outpatient (BNVA) | payer OTHER, SELFPAY | PROVIDERS: PCP Family Medicine; Visit Provider Student in an Organized Health Care Education/Training Program | DX: E11.29 Type 2 diabetes mellitus with other diabetic kidney complication (principal); E04.2 Nontoxic multinodular goiter; E05.90 Thyrotoxicosis, unspecified without thyrotoxic crisis or storm; E78.2 Mixed hyperlipidemia; Z79.84 Long term (current) use of oral hypoglycemic drugs; Z83.3 Family history of diabetes mellitus | CPT/HCPCS: 82947; 83036 ==

== ENCOUNTER 2024-05-16 10:53 | Outpatient (REF) | payer OTHER, SELFPAY ==
--- OUTSIDE RECORDS SUMMARY | 2024-05-16 11:15 | XMS_ITS | Patient Health Record ---
Author Organization [facility] Address [address] [place] [address] Care Team Providers Care Bridge Carpenter Name Role Phone Nikos SEWELL, Estevan Primary Care Provider Moises Boogie Jr Unavailable [phone] ALLERGIES Allergen (clinical drug ingredient) Drug/Non Drug Allergy documented on EMR Reaction Allergy Type Onset Date Status Tree Nuts (uncoded) Unknown Allergy Active REASON FOR REFERRAL No Information MEDICATIONS Medication SIG (Take, Route, Frequency, Duration) Notes Start Date End Date Status Vitamin B-6 Active Folic Acid Active Accupril Active Aleve PRN Active Gabapentin PRN Active MiraLax (colon prep) 8.3 ounce ((238) grams mixed with Gatorade or Crystal Light orally begin at 5:00 p.m. the day before the procedure for 1 day 04/14/2020 Active iron Active Atorvastatin Calcium Active Omeprazole Active Aspir-81 Active amLODIPine Besylate Active metFORMIN HCl Active Vitamin B 12 Active IMMUNIZATIONS Vaccine Route Administration Date Status Comme nts Influenza Unknown 04/14/2020 Refused SOCIAL HISTORY Sex Assigned At : Social History Observation Description Sex Assigned At Unknown Alcohol Screen Question Answer Notes Did you have a drink contain ing alcohol in the past year? Yes How often did you have a dri nk containing alcohol in the past year? 2 to 3 times a week (3 points) How many drinks did you have on a typical day when you were drinking in the past year? 3 or 4 drinks (1 point) How often did you have 6 or more drinks on one occasion in the past year? Never (0 point) Points 4 Interpretation Positive PROBLEMS Problem Type ICD Code Onset Dates Problem Status W/U Status Risk SNOMED Code Notes Problem Colon cancer screening (Z12.11) Active confirmed 575295409 Problem Elevated liver function tests (R79.89) Active confirmed 221875073 Problem Gastroesophageal reflux disease without esophagitis (K21.9) Active confirmed 321088970 Problem Dysphagia, unspecified type (R13.10) Active confirmed 02491712 PLAN OF TREATMENT Pending Test Test Name Order Date XR BARIUM SWALLOW-ESOPHAGUS 10/27/2016 US ABD 04/29/2020 Future Test Test Name Order Date UPPER GI ENDOSCOPY 10/27/2016 UPPER GI ENDOSCOPY 04/14/2020 COLONOSCOPY 04/14/2020 Insurance Providers Payer Name Payer Address Payer Phone Subscriber Number Group Number Insured Name Patient Relationship to Insured Coverage Start Date Coverage End Date [facility] [address] [place] [address] [id number] JACK SAHNI Self - patient is the insured MEDICAL (GENERAL) HISTORY Medical History History ICD Code egd and colon 04-10-2010 dysphagia hyperlipidemia hypertension elevated homocystine level hyperglycemia Surgical History Surgery Date(Month/Year) hand surgery
--- NOTE | 2024-05-16 11:35 | PM.PROC ---
Brief Operative Note Date of procedure: 05/16/24 Pre-op diagnosis: left mid lobe 2.7 cm thyroid nodule FNA biopsy Procedure: THYROID FINE NEEDLE ASPIRATION PROCEDURE NOTE ? PROCEDURE PERFORMED: Ultrasound-guided FNA of thyroid nodule ? OPERATORS: Dr. Ekta Castillo ? INDICATION:left mid lobe 2.7 cm thyroid nodule; FNA performed to assess for malignancy ? DESCRIPTION OF PROCEDURE: The indications for FNA (to assess for malignancy) were reviewed with the patient in detail. Potential complications (e.g., bleeding, infection, damage to local structures, absence of clear diagnosis after FNA) were reviewed. Alternatives to FNA including conservative observation or surgery were described. The patient understood and agreed to proceed. This was documented by the signing of the written informed consent form. A time-out was performed to confirm the patient's identity and the site of planned FNA. The nodule of interest was identified using ultrasound (14 MHz linear array probe). The site of FNA was then draped in the usual fashion and carefully cleaned and prepared using alcohol swabs. The skin at the previously-identified site of needle insertion was iced and sprayed with numbing spray. Under ultrasound guidance, 5__ passes were performed using a 1.5-inch, 25-gauge needle, and sample was obtained via capillary action. The needle tip was clearly visualized to be within the nodule at the time of sampling for 5_ of 5__ passes The patient tolerated the procedure well. There were no immediate complications. A small adhesive bandage was applied, and the patient was advised to take acetaminophen (rather than NSAIDs) for any discomfort and to report any signs of inflammation/infection or marked swelling. IMPRESSION: Technically successful ultrasound-guided fine needle aspiration of left mid lobe 2.7 cm thyroid nodule . PLAN: The patient was advised that I will provide follow-up regarding the cytology result and any subsequent plans. Ekta Castillo MD Endocrinology Attending Condition: stable Disposition: same day
== END 2024-05-16 10:54 | disposition home or self-care (01) ==
LOC: HO.US 10:53
PROVIDERS: PCP Family Medicine; Visit Provider Student in an Organized Health Care Education/Training Program
DX: E04.2 Nontoxic multinodular goiter (principal)
CPT/HCPCS: 10005; 88173

== ENCOUNTER → 2024-05-16 10:53 | Outpatient (BNV) | payer OTHER, SELFPAY | PROVIDERS: PCP Family Medicine; Visit Provider Student in an Organized Health Care Education/Training Program | DX: E04.2 Nontoxic multinodular goiter (principal) | CPT/HCPCS: 10005 ==

== ENCOUNTER 2024-05-21 14:27 | Outpatient (AMB) | payer OTHER, SELFPAY ==
--- NOTE | 2024-05-21 15:03 | A.OFFVIS_ITS ---
Intake Intake Visit Reasons: DM Allergies tree nut [TREE NUT] Allergy (Unknown, Verified 05/03/24 11:08) ANGIOEDEMA HPI Comprehensive Diabetes Asmnt Most Recent Diabetes Results: Hemoglobin A1c 8.4 % 12/20/19 Microalb/Creat Ratio 197.5 ug/mg cr (<30) H 01/04/24 Cholesterol 185 mg/dL 10/17/20 HDL Cholesterol 46 mg/dL 10/17/20 Triglycerides 262 mg/dL 10/17/20 Creatinine 1.00 mg/dL (0.5-1.4) 01/04/24 Blood Urea Nitrogen 18 mg/dL (9-16) H 01/04/24 Sodium 137 mmol/L (135-145) 01/04/24 Potassium 5.2 mmol/L (3.3-5.1) H 01/04/24 Chloride 104 mmol/L (96-108) 01/04/24 Carbon Dioxide 22 mmol/L (22-29) 01/04/24 AST 16 U/L (5-37) 01/04/24 ALT 24 U/L (0-40) 01/04/24 Total Protein 7.4 g/dL (6.5-8.0) 04/14/20 Albumin 4.2 g/dL (3.5-5.0) 04/14/20 [facility] Medical History (Updated 05/03/24 @ 12:55 by Ekta Castillo MD) Hyperlipidemia Type 2 diabetes mellitus Subclinical hyperthyroidism Multiple thyroid nodules Increased BMI Diabetes Elevated cholesterol HTN (hypertension) Surgical History Hx of hand surgery History of esophagogastroduodenoscopy (EGD) History of esophagogastroduodenoscopy (EGD) H/O colonoscopy Social History Second Hand Smoke Exposure: No Current occupational status: employed 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 Assessment & Plan Assessment & Plan (1) Type 2 diabetes mellitus: Code(s): E11.9 - Type 2 diabetes mellitus without complications Qualifiers: Diabetes mellitus information management specialist insulin use: without shelter use Diabetes mellitus complication status: with kidney complications Diabetes mellitus complication detail: with diabetic microalbuminuria Qualified Code(s): E11.29 - Type 2 diabetes mellitus with other diabetic kidney complication; R80.9 - Proteinuria, unspecified Plan: Patient at visit to set up an insert Dexcom G7 Instructed patient sensors water proof you can shower, or swim do not submerge sensor in water for over 30 minutes Is sensor falls off cannot put back in you need to replace sensor, customer service number given to patient for sensor replacement Sensor placed on the back of Right arm Patient left visit with sensor in warmup Reviewed how to interpret trend arrows Reminded patient that to check finger sticks if symptoms do not match sensor reading. Discussed lag time between finger stick and sensor data.? Instructed patient she should always keep blood glucometer for backup testing if needed Reviewed delay of CGM from fingersticks Reminded pt that if symptoms do not match sensor still needs to check fingersticks. Insulin/Incretin?Mimetic Education visit Patient Education: Pt will start Lantus 10 units daily If fasting glucose is greater than 140 mg/dL after 3 days increase to Lantus 12 Patient was instructed and provided with demonstration of the following: Insulin action and Incretin Mimetics medication storage how to set up medication pen/or syringe and vial Handwashing insulin injection site rotation Site rotation recognizing hypertrophy Testing blood glucose Removing and disposing needle from insulin pen Safe disposal of sharps Target blood sugar Signs/ symptoms/treatment of hypoglycemia/hyperglycemia expiration of open insulin pen Patient verbalized understanding of education provided and was able to demonstrate proper use of inject into injection pillow Reviewed rule of 15s to treat glucose under 70 mg/dL All questions were answered and patient was advised to contact the office with any questions or concerns. Portions of this note were created using voice recognition software, please excuse any words or phrases that may have been misinterpreted. Patient Instructions: Patient instruction: CGM provides information on blood glucose control throughou t the day, including hyperglycemia and hypoglycemia. ? Continue to monitor blood glucose as instructed. Follow nutrition guidelines provided. Report any discomfort promptly to health care provider. ?Stay well-hydrated. You can bathe ,shower, swim and exercise while wearing the glucose sensor. Do not submerge glucose sensor in water for more than 30 minutes. Patient Education: Pt will start Lantus 10 units daily If fasting glucose is greater than 140 mg/dL after 3 days increase to Lantus 12 units Coding Level of Care Code Est Pt Level 1 (13670) Diagnoses Type 2 diabetes mellitus with diabetic microalbuminuria, without long-term current use of insulin E11.29; R80.9 Diabetes mellitus information management specialist insulin use: without information management specialist use Diabetes mellitus complication status: with kidney complications Diabetes mellitus complication detail: with diabetic microalbuminuria
== END 2024-05-21 15:12 | disposition home or self-care (01) ==
PROVIDERS: PCP Family Medicine; Visit Provider Registered Nurse Diabetes Educator
DX: E11.29 Type 2 diabetes mellitus with other diabetic kidney complication (principal); R80.9 Proteinuria, unspecified

== ENCOUNTER → 2024-05-21 14:27 | Outpatient (BNVA) | payer OTHER, SELFPAY | PROVIDERS: PCP Family Medicine; Visit Provider Registered Nurse Diabetes Educator | DX: E11.29 Type 2 diabetes mellitus with other diabetic kidney complication (principal); R80.9 Proteinuria, unspecified | CPT/HCPCS: 99211 ==

== ENCOUNTER 2024-05-25 06:07 | Outpatient (REF) | payer OTHER, SELFPAY ==
[2024-05-25 08:05] LABS: Alanine Aminotransferase 50 U/L (0-40); Albumin Level 4.1 g/dL (3.5-5.0); Alkaline Phosphatase 49 U/L (39-117); Anion Gap 10 (12-20); Aspartate Amino Transferase 37 U/L (5-37); Bilirubin Total 0.6 mg/dL (0.0-1.0); Blood Urea Nitrogen 12 mg/dL (9-16); Calcium 9.3 mg/dL (8.4-10.2); Carbon Dioxide 25 mmol/L (22-29); Chloride 111 mmol/L (96-108); Cholesterol 144 mg/dL (<200); Estimated Glomerular Filt Rate > 60; Glucose Fasting 167 mg/dL (60-99); HDL Cholesterol 45 mg/dL (>40); LDL Cholesterol Calculated 69 mg/dL (<100); Potassium 4.2 mmol/L (3.3-5.1); Sodium 142 mmol/L (135-145); Total Protein 7.7 g/dL (6.5-8.0); Triglycerides 151 mg/dL (<150)
[2024-05-25 08:17] LABS: Vitamin B12 415 pg/mL (200-900)
[2024-05-25 08:20] LABS: Free T4 (Free Thyroxine) 0.87 ng/dL (0.71-1.85)
[2024-05-25 08:40] LABS: Creatinine Urine 133.63 mg/dL; Microalbum/Creatinine Ratio Ur 178.8 ug/mg cr (<30)
[2024-05-26 08:44] LABS: Triiodothyronine T3 Total 138 ng/dL (76-181)
== END 2024-05-25 06:08 | disposition home or self-care (01) ==
LOC: HO.LAB 06:07
PROVIDERS: Visit Provider Student in an Organized Health Care Education/Training Program
DX: E05.90 Thyrotoxicosis, unspecified without thyrotoxic crisis or storm (principal); E04.2 Nontoxic multinodular goiter; E11.9 Type 2 diabetes mellitus without complications
CPT/HCPCS: 36415; 80053; 80061; 82043; 82570; 82607; 84439; 84443; 84480

== ENCOUNTER 2024-05-30 12:55 | Outpatient (AMB) | payer OTHER, SELFPAY ==
--- NOTE | 2024-05-30 14:05 | MHC.AMDMED ---
Intake Intake Visit Reasons: 30 min Media Producer Required: No Accompanied by: Self / Same As Patient Allergies tree nut [TREE NUT] Allergy (Unknown, Verified 05/03/24 11:08) ANGIOEDEMA HPI Comprehensive Diabetes Asmnt Most Recent Diabetes Results: Hemoglobin A1c 8.4 % 12/20/19 Microalb/Creat Ratio 178.8 ug/mg cr (<30) H 05/25/24 Cholesterol 144 mg/dL (<200) 05/25/24 HDL Cholesterol 45 mg/dL (>40) 05/25/24 Triglycerides 151 mg/dL (<150) H 05/25/24 Creatinine 0.86 mg/dL (0.5-1.4) 05/25/24 Blood Urea Nitrogen 12 mg/dL (9-16) 05/25/24 Sodium 142 mmol/L (135-145) 05/25/24 Potassium 4.2 mmol/L (3.3-5.1) 05/25/24 Chloride 111 mmol/L (96-108) H 05/25/24 Carbon Dioxide 25 mmol/L (22-29) 05/25/24 Calcium 9.3 mg/dL (8.4-10.2) 05/25/24 AST 37 U/L (5-37) 05/25/24 ALT 50 U/L (0-40) H 05/25/24 Total Protein 7.7 g/dL (6.5-8.0) 05/25/24 Albumin 4.1 g/dL (3.5-5.0) 05/25/24 [facility] Medical History (Updated 05/03/24 @ 12:55 by Ekta Castillo MD) Hyperlipidemia Type 2 diabetes mellitus Subclinical hyperthyroidism Multiple thyroid nodules Increased BMI Diabetes Elevated cholesterol HTN (hypertension) Surgical History Hx of hand surgery History of esophagogastroduodenoscopy (EGD) History of esophagogastroduodenoscopy (EGD) H/O colonoscopy Social History Second Hand Smoke Exposure: No Current occupational status: employed 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 Assessment & Plan Assessment & Plan (1) Type 2 diabetes mellitus: Code(s): E11.9 - Type 2 diabetes mellitus without complications Qualifiers: Diabetes mellitus intermediate manager insulin use: without long-term use Diabetes mellitus complication status: with kidney complications Diabetes mellitus complication detail: with diabetic microalbuminuria Qualified Code(s): E11.29 - Type 2 diabetes mellitus with other diabetic kidney complication; R80.9 - Proteinuria, unspecified Plan: Personal Continuous Glucose Monitor: Patients CGM information reviewed, Pt uses Dexcom G7 sensor with reader Sensor data: Hypoglycemia: ? 0% Hyperglycemia:? 93% Time in Range:? 7% Average glucose for the last 2 weeks? 252 mg/dL Patient is currently taking Lantus 12 units daily, glucose levels are running well above target range Recommended to patient he take Lantus 16 units daily until visit with Dr. Castillo next week. At today's visit patient demonstrated how to insert sensor, put pairing code into reader And start sensor Reviewed how to interpret trend arrows Reminded patient that to check finger sticks if symptoms do not match sensor reading. Discussed lag time between finger stick and sensor data.? .? Portions of this note were created using voice recognition software, please excuse any words or phrases that may have been misinterpreted. Patient Instructions: Increase Lantus from 12 units to 16 units daily Follow-up with Dr. Castillo next week Coding Level of Care Code Est Pt Level 1 (48137) Diagnoses Type 2 diabetes mellitus with diabetic microalbuminuria, without long-term current use of insulin E11.29; R80.9 Diabetes mellitus intermediate manager insulin use: without intermediate manager use Diabetes mellitus complication status: with kidney complications Diabetes mellitus complication detail: with diabetic microalbuminuria
== END 2024-05-30 14:22 | disposition home or self-care (01) ==
PROVIDERS: PCP Family Medicine; Visit Provider Registered Nurse Diabetes Educator
DX: E11.29 Type 2 diabetes mellitus with other diabetic kidney complication (principal); R80.9 Proteinuria, unspecified

== ENCOUNTER → 2024-05-30 12:55 | Outpatient (BNVA) | payer OTHER, SELFPAY | PROVIDERS: PCP Family Medicine; Visit Provider Registered Nurse Diabetes Educator | DX: E11.29 Type 2 diabetes mellitus with other diabetic kidney complication (principal); R80.9 Proteinuria, unspecified; Z79.4 Long term (current) use of insulin | CPT/HCPCS: 99211 ==

== ENCOUNTER 2024-06-06 13:23 | Outpatient (AMB) | payer OTHER, SELFPAY ==
--- NOTE | 2024-06-06 13:27 | MHC.OFFVIS ---
Vital Signs 06/06/24 13:28 Height 5 ft 9 in Weight 206 lb 5.643 oz BMI 30.5 BP 114/84 Blood Pressure Location Lt brachial Position Sitting Pulse 66 Pulse Source Pulse Oximeter Intake Visit Reasons: Biopsy f/u & DM Intake Note: Patient present today for Type 2 Diabetes Mellitus and biopsy results. Last Diabetic eye exam: Has appt 06/07/24 Last Podiatry Visit: Doesn't have one Random Glucose: 249 mg/dl HgA1C: 12.1% 05/03/24 Transcription Manager Required: No Accompanied by: Self / Same As Patient Allergies tree nut [TREE NUT] Allergy (Unknown, Verified 06/06/24 13:34) ANGIOEDEMA HPI Comments Details: 63 YO M with who is here for fup of of Dm type 2 . and multinodular thyroid . Type 2 DM HPI Was previously seeing [facility] endocrinology or [facility] about 3 years ago . Diagnosed with type 2 DM in 2019. Current therapy Metformin 1000 mg at bedtime , b.i.d. dosing caused GI intolerance OZempic 1 mg weekly no GI intolrance dose incressed April 2024 , he thinks he is taking 4 injections of Lantus 16 units daily Prior therapy Switched from Trulicuty to Ozempic due to insurance issues summer 2023 Doesnt rememebr Trulicity dose Family history Father : type 2 DM FIb 4 score 1.45 excludes advanced liver fibrosis Alcohol use : 20 drinks in a week Exercise : walk 3 times a weeks 3 miles a day ,active at work Diet: not interested at thi time to meet the [employer] t CGM data downloaded from 05/24/2024 to 06/06/2024 In target range 4% of the time. Running high I have 35% of the time and very high 61% of the time 0% lows Average blood glucose 266 mg/dL G AZ 9.7% Standard deviation 49 mg/dL Coefficient of variation 18.6% Time active 97% Weight stable : only lost 2 lbs since January 2024. Never smoker Family history of ca: sister breast cancer Has cut down beer to 10 drinks a week. Previously was drinking 20 drinks per week. Complications Eye visit: January 2023, next scheduled for May 2024, no known retinopathy, has macular degenretaion, sees Dr. Danna Jeffrey at ophthalmology [facility] Neuropathy: Denies numbness , tingling in feet No history of CAD or stroke Reports increased urination, and polydipsia Denies any nausea, vomiting, abd pain, no mental status changes. Random Glucose: 249 mg/dl HgA1C: 12.1% April 2024 On quinapril 20 mg daily for Greg/ ARB On rosuvatsatin 20 mg daily Multinodular goiter: Subclinical hyperthyroidism Was initially diagnosed with multinodular thyroid in 2014 , had FNA of his left dominant nodule per records which was AUS. Scanned records do not show molecular testing. Over the years he has had some serial ultrasounds. Most recent thyroid ultrasound in 08/2023 as below: Ultrasound .Right Thyroid Lobe: 4.6 x 1.6 x 1.7 cm, volume 6.8 mL. Previously 4.7 x 2.0 x 1.6 cm, volume 7.9 mL. Parenchyma: The gland echotexture is heterogeneous. Thyroid vascularity is normal. Left Thyroid Lobe: 4.3 x 2.3 x 2.4 cm, volume 11.9 mL. Previously 5.1 x 2.6 x 2.7 cm, volume 18.8 mL. Parenchyma: The gland echotexture is heterogeneous. Thyroid vascularity is normal. Isthmus: 0.6 cm in maximum AP dimension. Previously 0.5 cm. Estimated total number of nodules greater than or equal to 1 cm: 2. 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 Location: Right upper pole. Size: 0.3 x 0.2 x 0.4 cm, volume 0.08 mL. Previously: 0.3 x 0.2 x 0.3 cm, volume 0.09 mL. Nodule characteristics: Composition: Cystic(0). ACR TI-RADS total points: 0 Previous: 0 ACR TI-RADS category: 1 Previous: 1 Significant change in size (>/= 20% in 2 dimensions and minimal increase of 2 mm or 50% or greater increase in volume): No Change in features: No Change in ACR TI-RADS risk category: No 2. Location: Right mid pole. Size: 0.7 x 0.5 x 0.6 cm, volume 0.11 mL. Previously: Not documented, new. Nodule characteristics: Composition: Solid/almost completely solid (2). Echogenicity: Cannot be determined (1). Shape: Not taller than wide (0). Margins: Ill-defined (0). Echogenic Foci: None (0). ACR TI-RADS total points: 3 ACR TI-RADS category: 3 3. Location: Left mid pole. Size: 2.7 x 2.0 x 2.2 cm, volume 6.2 mL. Previously: 2.1 x 1.9 x 2.7 cm, volume 5.6 mL. Nodule characteristics: Composition: Mixed cystic and solid (1). Echogenicity: Hypoechoic (2). Shape: Not taller than wide (0). Margins: Smooth (0). Echogenic Foci: Macrocalcifications (1). ACR TI-RADS total points: 4 Previous: 2 ACR TI-RADS category: 4 Previous: 2 Significant change in size (>/= 20% in 2 dimensions and minimal increase of 2 mm or 50% or greater increase in volume): Yes Change in features: Yes Change in ACR TI-RADS risk category: Yes 4. Location: Left mid/lower pole. Size: 1.0 x 0.7 x 0.7 cm, volume 0.24 mL. Previously: 0.6 x 0.4 x 0.5 cm, volume 0.06 mL. Nodule characteristics: Composition: Solid/almost completely solid (2). Echogenicity: Hypoechoic (2). Shape: Not taller than wide (0). Margins: Smooth (0). Echogenic Foci: None (0). ACR TI-RADS total points: 4 Previous: 2 ACR TI-RADS category: 4 Previous: 2 Significant change in size (>/= 20% in 2 dimensions and minimal increase of 2 mm or 50% or greater increase in volume): Yes Change in features: No Change in ACR TI-RADS risk category: No 5. Location: Left lower pole/isthmus. Size: 1.1 x 0.8 x 0.9 cm, volume 0.44 mL. Previously: 1.0 x 0.7 x 1.0 cm, volume 0.3 mL. Nodule characteristics: Composition: Solid (2). Echogenicity: Hypoechoic (2). Shape: Not taller than wide (0). Margins: Smooth (0). Echogenic Foci: None (0). ACR TI-RADS total points: 4 Previous: 3 ACR TI-RADS category: 4 Previous: 3 Significant change in size (>/= 20% in 2 dimensions and minimal increase of 2 mm or 50% or greater increase in volume): No Change in features: No Change in ACR TI-RADS risk category: No NODES: No lymphadenopathy is seen in the tissue surrounding the thyroid gland. US/US thyroid IMPRESSION: Heterogeneous multinodular thyroid gland. A 2.7 cm TR 4 nodule in the left mid pole is increase in size and slightly more hypoechoic, if not previously obtained, further evaluation with FNA is recommended. A 1 cm TR 4 nodule in the left mid to lower pole is also increase in size. Recommend follow-up with ultrasound in one year. An additional 1.1 cm TR 4 nodule in the left lower pole is unchanged. Recommend follow-up with ultrasound in one year. Labs from 11/29 showed TSH of 0.24, free T4 of 0.77, free T3 of 3.7. Thyroid uptake and scan from December of 2023 showed increased activity in the left side of the lobe however with decreased uptake in the region of the left dominant nodule concerning for a cold nodule. 01/18/24 :Underwent FNA of the left 2.7 cm nodule whihc was AUS with nuclear atypia, Afirma could not be run due to low RNA yield. Interval history 05/16/2024: Underwent repeat FNA of the left 2.7 cm nodule which again came back as AUS with nuclear atypia, Afirma benign 4% risk of malignancy Labs once 05/25/2024 showed low TSH of 0.3, normal free T4 of 0.87, Currently denies any dysphagia or hoarseness of voice. Denies sensation of swelling in the neck or difficulty breathing while lying flat. Denies any tenderness in the neck. Denies any palpitations, tremors, weight loss, frequent bowel movements. Denies any ocular complaints, blurred or double vision. Mother had thyroid issues Denies hair loss, dry skin, heat or cold intolerance, weight gain, confusion. Denies any history of head or neck irradiation. Denies any family history of thyroid cancer. No biotin supplements. Physical exam General: sitting comfortably in no acute distress HEENT: normocephalic/atraumatic Cardiac: normal heart sounds Pulm: in no pulmonary distress Abd: not distended, no tenderness Extremities: no edema, no signs of myxedema Foot exam : not done today Laboratory Tests 04/14/20 03/09/22 06/09/23 10:00 06:04 06:28 Plt Count 146 L Sodium Potassium Creatinine Estimated GFR Glucose (Clinic) Fasting Glucose Hemoglobin A1c % 9.0 7.6 H AST ALT Triglycerides Cholesterol LDL Cholesterol, Calc HDL Cholesterol Vitamin B12 TSH Free T4 Free T3 Total T3 Urine Creatinine Urine Microalbumin Microalb/Creat Ratio 11/08/23 01/04/24 01/04/24 14:15 06:29 06:33 Plt Count Sodium Potassium Creatinine Estimated GFR > 60 Glucose (Clinic) Fasting Glucose 249 H Hemoglobin A1c % 7.8 H AST 16 ALT 24 Triglycerides Cholesterol LDL Cholesterol, Calc HDL Cholesterol Vitamin B12 TSH 0.24 L Free T4 0.77 Free T3 3.7 Total T3 Urine Creatinine 98.71 Urine Microalbumin 195.0 Microalb/Creat Ratio 197.5 H 05/03/24 05/25/24 05/25/24 11:10 06:12 06:20 Plt Count Sodium 142 Potassium 4.2 Creatinine 0.86 Estimated GFR > 60 Glucose (Clinic) 350 H* Fasting Glucose 167 H Hemoglobin A1c % AST ALT Triglycerides 151 H Cholesterol 144 LDL Cholesterol, Calc 69 HDL Cholesterol 45 Vitamin B12 415 TSH 0.30 L Free T4 0.87 Free T3 Total T3 138 Urine Creatinine 133.63 Urine Microalbumin 239.0 Microalb/Creat Ratio 178.8 H [facility] Medical History (Updated 06/06/24 @ 14:15 by Ekta Castillo MD) Diabetes mellitus, with long-term current use of insulin Hyperlipidemia Type 2 diabetes mellitus Subclinical hyperthyroidism Multiple thyroid nodules Increased BMI Diabetes Elevated cholesterol HTN (hypertension) Surgical History Hx of hand surgery History of esophagogastroduodenoscopy (EGD) History of esophagogastroduodenoscopy (EGD) H/O colonoscopy Social History Second Hand Smoke Exposure: No Current occupational status: employed 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 Has multiple thyroid nodules with left lobe dominant nodule measuring 2.7 cm with macrocalcification. The nodule is of intermediate to high suspicion by LAURA characteristics Had biopsy of the nodule in 2014, however was AUS but molecular testing was not pursued it seems like from the records. Patient does not recall what was done. He was also noted to have a TSH of 0.24 with normal free T4 and free T3. Does not have any symptoms of hyperthyroidism. Given the mildly low TSH level, Concerned whether this left dominant nodule is possibly a hyperfunctioning which would reduce the concern for possible thyroid cancer in this nodule. However thyroid uptake and scan in 12/30 showed increased activity in the left side with photopenic left lobe nodule concerning for a cold nodule. Underwent FNA of the left 2.7 cm nodule 01/18/24 whihc was AUS with nuclear atypia, Afirma could not be run due to low RNA yield. -05/16/2024: Underwent repeat FNA of the left 2.7 cm nodule which again came back as AUS with nuclear atypia, Afirma benign 4% risk of malignancy Plan: -ordered repeat thyroid ultrasound to be done in April 2025 (2) Subclinical hyperthyroidism: Code(s): E05.90 - Thyrotoxicosis, unspecified without thyrotoxic crisis or storm Category: Medical Plan: Patient also noted to have a TSH of 0.24 in November 29. Normal free T4 and free T3 suggestive of subclinical hyperthyroidism. Given his history of nodules, likely has hyper functioning nodules. However thyroid uptake and scan showed increased activity in the left lobe, concerning for hyper functioning nodules but with photopenic appearance of the left dominant nodule as described above for which we did FNA which came back as AUS, [place] category 3, with benign Afirma.. Criteria for treating subclinical hyperthyroidism as TSH level less than 0.1 or age above 65 or history of heart disease, osteoporosis. He just recently turned 64, however his thyroid labs looks somewhat improved most recently 05/25/2019 5:1 TSH was noted to be mildly had 0.3, free T4 of 0.87. We will plan to repeat his TFTs in 6 months. Plan: -repeat TSH, free T4, total T3 in November 2024 (3) Hyperlipidemia: Code(s): E78.5 - Hyperlipidemia, unspecified Category: Medical Qualifiers: Hyperlipidemia type: mixed hyperlipidemia Qualified Code(s): E78.2 - Mixed hyperlipidemia Plan: Continue rosuvastatin 20 mg daily. LDL at goal less than 70 mg/dL. (4) Diabetes mellitus, with long-term current use of insulin: Code(s): E11.9 - Type 2 diabetes mellitus without complications; Z79.4 - [facility] (current) use of insulin Category: Medical Qualifiers: Diabetes mellitus type: type 2 Diabetes mellitus complication status: with hyperglycemia Qualified Code(s): E11.65 - Type 2 diabetes mellitus with hyperglycemia; Z79.4 - [facility] (current) use of insulin Plan: 64-year-old male with past medical history significant for type 2 diabetes mellitus now on insulin Diagnosed with type 2 diabetes mellitus in 2019, and his A1c used to be around 9%, however had improved control up until earlier this summer 2023 when his A1c was around 7.6% but recently had worsened control of diabetes with uncontrolled hyperglycemia. A1c April 2024 12.1%. CGM data downloaded which shows overall he remains hyperglycemic most of the time with the above target range 95% of the time, however has somewhat improvement in his readings. We will titrate up both the insulin and the Ozempic. Discussed with him importance of glycemic control and risks of her hyperglycemia and cardiovascular comorbidities and microvascular complications. Plan: -increase Lantus from 16 units to 20 units daily. -increase Ozempic to 2 mg weekly -continue metformin 1000 mg daily -opts out of nutrition referral -advised about cutting down alcohol intake -hypoglycemia education done -discussed importance of 150 minutes a week of exercise -overdue for eye visit, has follow up in May 2024 Note: He also has microalbuminuria, once we have better glycemic control, we will consider starting SGLT2 inhibitor. He is already on Greg/Arb. Plan See above Orders: Orders US thyroid 04/15/25 E04.2 - Nontoxic multinodular goiter, E05.90 - Thyrotoxicosis, unspecified without thyrotoxic crisis or storm AMB Glucose Monitoring Today E11.9 - Type 2 diabetes mellitus without complications, Z79.4 - [facility] (current) use of insulin Medications: New semaglutide (Ozempic) 2 mg (0.75 mL) subcut QWEEK 9 mL 5RF Changed From insulin glargine (Lantus Solostar U-100 Insulin) 10 units (0.1 mL) subcut DAILY 15 mL 4RF To insulin glargine (Lantus Solostar U-100 Insulin) 20 units (0.2 mL) subcut DAILY 15 mL 4RF Discontinued semaglutide (Ozempic) Discontinued Reason: Doctor's Order 1 mg (0.75 mL) subcut QWEEK 9 mL 4RF Patient Instructions: Increase Ozempic to 2 mg weekly after completing one more week of the current 1 mg dose Increase insulin Lantus to 20 units If fasting after this dose is still greater than 140 mg/dl , you can go up by another 2 units to 22 units Follow up in 4 weeks to solomon CGM data Coding Level of Care Code Est Pt Level 4 (87136) Diagnoses Multiple thyroid nodules E04.2 Subclinical hyperthyroidism E05.90 Mixed hyperlipidemia E78.2 Hyperlipidemia type: mixed hyperlipidemia Type 2 diabetes mellitus with hyperglycemia, with long-term current use of insulin E11.65; Z79.4 Diabetes mellitus type: type 2 Diabetes mellitus complication status: with hyperglycemia CPT Codes Details - CPT: 37500 - Glucose monitoring, continuous-physician I&R ([id number]) Time Spent (min) 30
[2024-06-06 13:28] VITALS: BP 114/84; PULSE 66; BMI 30.5
[2024-06-06 13:40] LABS: Glucose, Whole Blood 249 mg/dL (60-115)
--- OUTSIDE RECORDS SUMMARY | 2024-06-06 15:32 | XMS_ITS | Patient Health Record ---
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 Name Role Phone Nikos SEWELL, Estevan Primary Care Provider Moises Boogie Jr Unavailable ALLERGIES Allergen (clinical drug ingredient) Drug/Non Drug [...] Problem Colon cancer screening (Z12.11) Active confirmed 403100726 Problem Elevated liver function tests (R79.89) Active confirmed 646953547 Problem Gastroesophageal reflux disease without esophagitis (K21.9) Active confirmed [id number] Problem Dysphagia, unspecified type (R13.10) Active confirmed [id number] PLAN OF TREATMENT Pending Test Test Name Order Date XR BARIUM SWALLOW-ESOPHAGUS 10/27/2016 US ABD 04/29/2020 Future Test Test Name Order Date UPPER GI ENDOSCOPY 10/27/2016 UPPER GI ENDOSCOPY 04/14/2020 COLONOSCOPY 04/14/2020 Insurance Providers Payer Name Payer Address Payer Phone Subscriber Number Group Number Insured Name Patient Relationship to Insured Coverage Start Date Coverage End Date [facility] [address] [place] [address] [id number] JACK SAHNI Self - patient is the insured MEDICAL (GENERAL) HISTORY Medical History History ICD Code egd and colon 04-10-2010 dysphagia hyperlipidemia hypertension elevated homocystine level hyperglycemia Surgical History Surgery Date(Month/Year) hand surgery
== END 2024-06-06 14:02 | disposition home or self-care (01) ==
PROVIDERS: PCP Family Medicine; Visit Provider Student in an Organized Health Care Education/Training Program
DX: E04.2 Nontoxic multinodular goiter (principal); E05.90 Thyrotoxicosis, unspecified without thyrotoxic crisis or storm; E78.2 Mixed hyperlipidemia; E11.65 Type 2 diabetes mellitus with hyperglycemia; Z79.4 Long term (current) use of insulin
CPT/HCPCS: 95251; 99214

== ENCOUNTER → 2024-06-06 13:23 | Outpatient (BNVA) | payer OTHER, SELFPAY | PROVIDERS: PCP Family Medicine; Visit Provider Student in an Organized Health Care Education/Training Program | DX: E11.65 Type 2 diabetes mellitus with hyperglycemia (principal); E78.2 Mixed hyperlipidemia; E04.2 Nontoxic multinodular goiter; E05.90 Thyrotoxicosis, unspecified without thyrotoxic crisis or storm; Z79.4 Long term (current) use of insulin | CPT/HCPCS: 82947 ==

== ENCOUNTER 2024-07-03 09:23 | Outpatient (AMB) | payer OTHER, SELFPAY ==
[2024-07-03 09:25] VITALS: BP 112/70; PULSE 68; O2SAT 93; BMI 30.8
--- NOTE | 2024-07-03 09:25 | A.OFFVIS_ITS ---
Vital Signs 3 07/03/24 09:25 Height 5 ft 9 in Weight 208 lb 5.389 oz BMI 30.8 BP 112/70 Blood Pressure Location Lt brachial Position Sitting Pulse 68 Pulse Source Pulse Oximeter Pulse Oximetry (%) 93 Oxygen Delivery Method Room Air Intake Visit Reasons: MNG, DM Intake Note: Patient present today for Type 2 Diabetes Mellitus and MNG. Last Diabetic eye exam: 05/2024 Last Podiatry Visit: Doesn't have one Random Glucose: 254 mg/dl HgA1C: 12.1% 05/03/24 Retail Client Manager Required: No Accompanied by: Self / Same As Patient Allergies tree nut [TREE NUT] Allergy (Unknown, Verified 07/03/24 09:34) ANGIOEDEMA HPI Comments Details: 63 YO M with who is here for fup of of Dm type 2 . and multinodular thyroid . Type 2 DM HPI Was previously seeing [facility] endocrinology or [facility] about 3 years ago . Diagnosed with type 2 DM in 2019. Current therapy Metformin 1000 mg at bedtime , b.i.d. dosing caused GI intolerance OZempic 2 mg weekly (increased 06/06/24 howeevr he was out of it for the past 2 weeks) no GI intolrance Lantus 22 units daily at bedtime Prior therapy Switched from Trulicuty to Ozempic due to insurance issues summer 2023 Doesnt rememebr Trulicity dose Family history Father : type 2 DM FIb 4 score 1.45 excludes advanced liver fibrosis Alcohol use : 20 drinks in a week trying to cut down Exercise : walk 3 times a weeks 3 miles a day ,active at work Diet: not interested at thi time to meet the nutritionis t Random Glucose: 254 mg/dl CGM data downloaded from 06/20/2024 to 07/03/2024 In range 1% 16% high, 83% very high, 0% lows Average glucose 299 mg/dL G mi 10.5% Coefficient of variation 16.6% Interpretation hyperglycemic throughout Weight stable : only lost 2 lbs since January 2024. Never smoker Family history of ca: sister breast cancer Has cut down beer to 10 drinks a week. Previously was drinking 20 drinks per week. Complications Eye visit: May 2024, no known retinopathy, has macular degenretaion, sees Dr. Danna Jeffrey at ophthalmology [facility] Neuropathy: Denies numbness , tingling in feet No history of CAD or stroke Reports increased urination, and polydipsia Denies any nausea, vomiting, abd pain, no mental status changes. Random Glucose: 254 mg/dl HgA1C: 12.1% April 2024 On quinapril 20 mg daily for Greg/ ARB On rosuvatsatin 20 mg daily Multinodular goiter: Subclinical hyperthyroidism Was initially diagnosed with multinodular thyroid in 2014 , had FNA of his left dominant nodule per records which was AUS. Scanned records do not show molecular testing. Over the years he has had some serial ultrasounds. Most recent thyroid ultrasound in 08/2023 as below: Ultrasound .Right Thyroid Lobe: 4.6 x 1.6 x 1.7 cm, volume 6.8 mL. Previously 4.7 x 2.0 x 1.6 cm, volume 7.9 mL. Parenchyma: The gland echotexture is heterogeneous. Thyroid vascularity is normal. Left Thyroid Lobe: 4.3 x 2.3 x 2.4 cm, volume 11.9 mL. Previously 5.1 x 2.6 x 2.7 cm, volume 18.8 mL. Parenchyma: The gland echotexture is heterogeneous. Thyroid vascularity is normal. Isthmus: 0.6 cm in maximum AP dimension. Previously 0.5 cm. Estimated total number of nodules greater than or equal to 1 cm: 2. 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 Location: Right upper pole. Size: 0.3 x 0.2 x 0.4 cm, volume 0.08 mL. Previously: 0.3 x 0.2 x 0.3 cm, volume 0.09 mL. Nodule characteristics: Composition: Cystic(0). ACR TI-RADS total points: 0 Previous: 0 ACR TI-RADS category: 1 Previous: 1 Significant change in size (>/= 20% in 2 dimensions and minimal increase of 2 mm or 50% or greater increase in volume): No Change in features: No Change in ACR TI-RADS risk category: No 2. Location: Right mid pole. Size: 0.7 x 0.5 x 0.6 cm, volume 0.11 mL. Previously: Not documented, new. Nodule characteristics: Composition: Solid/almost completely solid (2). Echogenicity: Cannot be determined (1). Shape: Not taller than wide (0). Margins: Ill-defined (0). Echogenic Foci: None (0). ACR TI-RADS total points: 3 ACR TI-RADS category: 3 3. Location: Left mid pole. Size: 2.7 x 2.0 x 2.2 cm, volume 6.2 mL. Previously: 2.1 x 1.9 x 2.7 cm, volume 5.6 mL. Nodule characteristics: Composition: Mixed cystic and solid (1). Echogenicity: Hypoechoic (2). Shape: Not taller than wide (0). Margins: Smooth (0). Echogenic Foci: Macrocalcifications (1). ACR TI-RADS total points: 4 Previous: 2 ACR TI-RADS category: 4 Previous: 2 Significant change in size (>/= 20% in 2 dimensions and minimal increase of 2 mm or 50% or greater increase in volume): Yes Change in features: Yes Change in ACR TI-RADS risk category: Yes 4. Location: Left mid/lower pole. Size: 1.0 x 0.7 x 0.7 cm, volume 0.24 mL. Previously: 0.6 x 0.4 x 0.5 cm, volume 0.06 mL. Nodule characteristics: Composition: Solid/almost completely solid (2). Echogenicity: Hypoechoic (2). Shape: Not taller than wide (0). Margins: Smooth (0). Echogenic Foci: None (0). ACR TI-RADS total points: 4 Previous: 2 ACR TI-RADS category: 4 Previous: 2 Significant change in size (>/= 20% in 2 dimensions and minimal increase of 2 mm or 50% or greater increase in volume): Yes Change in features: No Change in ACR TI-RADS risk category: No 5. Location: Left lower pole/isthmus. Size: 1.1 x 0.8 x 0.9 cm, volume 0.44 mL. Previously: 1.0 x 0.7 x 1.0 cm, volume 0.3 mL. Nodule characteristics: Composition: Solid (2). Echogenicity: Hypoechoic (2). Shape: Not taller than wide (0). Margins: Smooth (0). Echogenic Foci: None (0). ACR TI-RADS total points: 4 Previous: 3 ACR TI-RADS category: 4 Previous: 3 Significant change in size (>/= 20% in 2 dimensions and minimal increase of 2 mm or 50% or greater increase in volume): No Change in features: No Change in ACR TI-RADS risk category: No NODES: No lymphadenopathy is seen in the tissue surrounding the thyroid gland. US/US thyroid IMPRESSION: Heterogeneous multinodular thyroid gland. A 2.7 cm TR 4 nodule in the left mid pole is increase in size and slightly more hypoechoic, if not previously obtained, further evaluation with FNA is recommended. A 1 cm TR 4 nodule in the left mid to lower pole is also increase in size. Recommend follow-up with ultrasound in one year. An additional 1.1 cm TR 4 nodule in the left lower pole is unchanged. Recommend follow-up with ultrasound in one year. Labs from 11/29 showed TSH of 0.24, free T4 of 0.77, free T3 of 3.7. Thyroid uptake and scan from December of 2023 showed increased activity in the left side of the lobe however with decreased uptake in the region of the left dominant nodule concerning for a cold nodule. 01/18/24 :Underwent FNA of the left 2.7 cm nodule whihc was AUS with nuclear atypia, Afirma could not be run due to low RNA yield. Interval history 05/16/2024: Underwent repeat FNA of the left 2.7 cm nodule which again came back as AUS with nuclear atypia, Afirma benign 4% risk of malignancy Labs once 05/25/2024 showed low TSH of 0.3, normal free T4 of 0.87, Currently denies any dysphagia or hoarseness of voice. Denies sensation of swelling in the neck or difficulty breathing while lying flat. Denies any tenderness in the neck. Denies any palpitations, tremors, weight loss, frequent bowel movements. Denies any ocular complaints, blurred or double vision. Mother had thyroid issues Denies hair loss, dry skin, heat or cold intolerance, weight gain, confusion. Denies any history of head or neck irradiation. Denies any family history of thyroid cancer. No biotin supplements. Physical exam General: sitting comfortably in no acute distress HEENT: normocephalic/atraumatic Cardiac: normal heart sounds Pulm: in no pulmonary distress Abd: not distended, no tenderness Extremities: no edema, no signs of myxedema Foot exam : not done today Laboratory Tests 04/14/20 03/09/22 06/09/23 10:00 06:04 06:28 Plt Count 146 L Sodium Potassium Creatinine Estimated GFR Glucose (Clinic) Fasting Glucose Hemoglobin A1c % 9.0 7.6 H AST ALT Triglycerides Cholesterol LDL Cholesterol, Calc HDL Cholesterol Vitamin B12 TSH Free T4 Free T3 Total T3 Urine Creatinine Urine Microalbumin Microalb/Creat Ratio 11/08/23 01/04/24 01/04/24 14:15 06:29 06:33 Plt Count Sodium Potassium Creatinine Estimated GFR > 60 Glucose (Clinic) Fasting Glucose 249 H Hemoglobin A1c % 7.8 H AST 16 ALT 24 Triglycerides Cholesterol LDL Cholesterol, Calc HDL Cholesterol Vitamin B12 TSH 0.24 L Free T4 0.77 Free T3 3.7 Total T3 Urine Creatinine 98.71 Urine Microalbumin 195.0 Microalb/Creat Ratio 197.5 H 05/03/24 05/25/24 05/25/24 11:10 06:12 06:20 Plt Count Sodium 142 Potassium 4.2 Creatinine 0.86 Estimated GFR > 60 Glucose (Clinic) 350 H* Fasting Glucose 167 H Hemoglobin A1c % AST ALT Triglycerides 151 H Cholesterol 144 LDL Cholesterol, Calc 69 HDL Cholesterol 45 Vitamin B12 415 TSH 0.30 L Free T4 0.87 Free T3 Total T3 138 Urine Creatinine 133.63 Urine Microalbumin 239.0 Microalb/Creat Ratio 178.8 H [facility] Medical History (Updated 06/06/24 @ 14:15 by Ekta Castillo MD) Diabetes mellitus, with long-term current use of insulin Hyperlipidemia Type 2 diabetes mellitus Subclinical hyperthyroidism Multiple thyroid nodules Increased BMI Diabetes Elevated cholesterol HTN (hypertension) Surgical History Hx of hand surgery History of esophagogastroduodenoscopy (EGD) History of esophagogastroduodenoscopy (EGD) H/O colonoscopy Social History Second Hand Smoke Exposure: No Current occupational status: employed 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 Physical Exam Vital Signs: Last Vital Signs Pulse 68 07/03/24 09:25 BP 112/70 07/03/24 09:25 Pulse Ox 93 07/03/24 09:25 Oxygen Delivery Method Room Air 07/03/24 09:25 BMI result Body Mass Index 30.8 Office Procedures Glucose Monitoring Details Details: see [facility] [address]2011 - Glucose monitoring, continuous-physician I&R Procedure code (CPT) selection complete Results Reviewed Results Reviewed: Laboratory Last Values Glucose (Clinic) 254 mg/dL (60-115) H 07/03/24 09:35 Assessment & Plan Assessment & Plan (1) Multiple thyroid nodules: Code(s): E04.2 - Nontoxic multinodular goiter Category: Medical Plan: 63-year-old male no family history of thyroid cancer, with no personal history of head or neck radiation coming in for follow-up of multinodular goiter. Has multiple thyroid nodules with left lobe dominant nodule measuring 2.7 cm with macrocalcification. The nodule is of intermediate to high suspicion by LAURA characteristics Had biopsy of the nodule in 2014, however was AUS but molecular testing was not pursued it seems like from the records. Patient does not recall what was done. He was also noted to have a TSH of 0.24 with normal free T4 and free T3. Does not have any symptoms of hyperthyroidism. Given the mildly low TSH level, Concerned whether this left dominant nodule is possibly a hyperfunctioning which would reduce the concern for possible thyroid cancer in this nodule. However thyroid uptake and scan in 12/30 showed increased activity in the left side with photopenic left lobe nodule concerning for a cold nodule. Underwent FNA of the left 2.7 cm nodule 01/18/24 whihc was AUS with nuclear atypia, Afirma could not be run due to low RNA yield. -05/16/2024: Underwent repeat FNA of the left 2.7 cm nodule which again came back as AUS with nuclear atypia, Afirma benign 4% risk of malignancy Plan: -ordered repeat thyroid ultrasound to be done in April 2025 (2) Subclinical hyperthyroidism: Code(s): E05.90 - Thyrotoxicosis, unspecified without thyrotoxic crisis or storm Category: Medical Plan: Patient also noted to have a TSH of 0.24 in November 29. Normal free T4 and free T3 suggestive of subclinical hyperthyroidism. Given his history of nodules, likely has hyper functioning nodules. However thyroid uptake and scan showed increased activity in the left lobe, concerning for hyper functioning nodules but with photopenic appearance of the left dominant nodule as described above for which we did FNA which came back as AUS, Alsen category 3, with benign Afirma.. Criteria for treating subclinical hyperthyroidism as TSH level less than 0.1 or age above 65 or history of heart disease, osteoporosis. He just recently turned 64, however his thyroid labs looks somewhat improved most recently 05/25/2019 5:1 TSH was noted to be mildly had 0.3, free T4 of 0.87. We will plan to repeat his TFTs in 6 months. Plan: -repeat TSH, free T4, total T3 in November 2024 (3) Hyperlipidemia: Code(s): E78.5 - Hyperlipidemia, unspecified Category: Medical Qualifiers: Hyperlipidemia type: mixed hyperlipidemia Qualified Code(s): E78.2 - Mixed hyperlipidemia Plan: Continue rosuvastatin 20 mg daily. LDL at goal less than 70 mg/dL. done Jun 02 (4) Diabetes mellitus, with long-term current use of insulin: Code(s): E11.9 - Type 2 diabetes mellitus without complications; Z79.4 - intermodal dispatcher (current) use of insulin Category: Medical Qualifiers: Diabetes mellitus type: type 2 Diabetes mellitus complication status: w ith hyperglycemia Qualified Code(s): E11.65 - Type 2 diabetes mellitus with hyperglycemia; Z79.4 - alf (current) use of insulin Plan: 64-year-old male with past medical history significant for type 2 diabetes mellitus now on insulin Diagnosed with type 2 diabetes mellitus in 2018, and his A1c used to be around 9%, however had improved control up until earlier this summer 2023 when his A1c was around 7.6% but recently had worsened control of diabetes with uncontrolled hyperglycemia. A1c April 2024 12.1%. CGM data downloaded which shows overall he remains hyperglycemic most of the time with the above target . We will titrate up the insulin , he has also been out of Ozempic for the past 2 weeks. Discussed with him importance of glycemic control and risks of her hyperglycemia and cardiovascular comorbidities and microvascular complications. Plan: -Continue Ozempic to 2 mg weekly Continue metformin 1000 mg daily Increase insulin Lantus to 26 units If fasting after this dose is still greater than 140 mg/dl , you can go up by another 2 units to 28 units and then to 30 units Follow up in 8 weeks to anlyze CGM data See rn surgery icu See podiatry -advised about cutting down alcohol intake -hypoglycemia education done -discussed importance of 150 minutes a week of exercise Note: He also has microalbuminuria, once we have better glycemic control, we will consider starting SGLT2 inhibitor. He is already on Greg/Arb. Plan See above Orders: Orders 2 AMB Glucose Monitoring Today E11.65 - Type 2 diabetes mellitus with hyperglycemia, Z79.4 - intermodal dispatcher (current) use of insulin Referrals 2 Residential Child Care Counselor Nutrition Referral E11.65 - Type 2 diabetes mellitus with hyperglycemia, Z79.4 - intermodal dispatcher (current) use of insulin Podiatry Referral E11.65 - Type 2 diabetes mellitus with hyperglycemia, Z79.4 - intermodal dispatcher (current) use of insulin Medications: Changed 2 From metformin (Glucophage) 1,000 mg PO BEDTIME To metformin 1,000 mg PO BEDTIME 90 tabs 3RF From insulin glargine (Lantus Solostar U-100 Insulin) 20 units (0.2 mL) subcut DAILY 15 mL 4RF To insulin glargine (Lantus Solostar U-100 Insulin) 28 units (0.28 mL) subcut DAILY 15 mL 4RF Patient Instructions: Continue Ozempic to 2 mg weekly Continue metformin 1000 mg daily Increase insulin Lantus to 26 units If fasting after this dose is still greater than 140 mg/dl , you can go up by another 2 units to 28 units and then to 30 units Follow up in 8 weeks to charleeze CGM data See rn surgery icu See podiatry Coding Level of Care Code Est Pt Level 4 (24898) Diagnoses Multiple thyroid nodules E04.2 Subclinical hyperthyroidism E05.90 Mixed hyperlipidemia E78.2 Hyperlipidemia type: mixed hyperlipidemia Type 2 diabetes mellitus with hyperglycemia, with long-term current use of insulin E11.65; Z79.4 Diabetes mellitus type: type 2 Diabetes mellitus complication status: with hyperglycemia CPT Codes Details - CPT: 29545 - Glucose monitoring, continuous-physician I&R ([id number]) Time Spent (min) 30
[2024-07-03 09:39] LABS: Glucose, Whole Blood 254 mg/dL (60-115)
== END 2024-07-03 10:03 | disposition home or self-care (01) ==
PROVIDERS: PCP Family Medicine; Visit Provider Student in an Organized Health Care Education/Training Program
DX: E04.2 Nontoxic multinodular goiter (principal); E05.90 Thyrotoxicosis, unspecified without thyrotoxic crisis or storm; E78.2 Mixed hyperlipidemia; E11.65 Type 2 diabetes mellitus with hyperglycemia; Z79.4 Long term (current) use of insulin
CPT/HCPCS: 95251; 99214

== ENCOUNTER → 2024-07-03 09:23 | Outpatient (BNVA) | payer OTHER, SELFPAY | PROVIDERS: PCP Family Medicine; Visit Provider Student in an Organized Health Care Education/Training Program | DX: E04.2 Nontoxic multinodular goiter (principal); E05.90 Thyrotoxicosis, unspecified without thyrotoxic crisis or storm; E78.2 Mixed hyperlipidemia; E11.65 Type 2 diabetes mellitus with hyperglycemia; Z79.4 Long term (current) use of insulin; Z79.84 Long term (current) use of oral hypoglycemic drugs; Z79.899 Other long term (current) drug therapy | CPT/HCPCS: 82947 ==

== ENCOUNTER 2024-07-19 09:24 | Outpatient (AMB) | payer OTHER, SELFPAY ==
--- NOTE | 2024-07-19 09:32 | A.OFFVIS_ITS ---
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 Accompanied by: Self / Same As Patient Allergies tree nut [TREE NUT] Allergy (Unknown, Verified 07/03/24 09:34) ANGIOEDEMA HPI Comprehensive Diabetes Asmnt Most Recent Diabetes Results: 2 Hemoglobin A1c 8.4 % 12/20/19 Microalb/Creat Ratio 178.8 ug/mg cr (<30) H 05/25/24 Cholesterol 144 mg/dL (<200) 05/25/24 HDL Cholesterol 45 mg/dL (>40) 05/25/24 Triglycerides 151 mg/dL (<150) H 05/25/24 Creatinine 0.86 mg/dL (0.5-1.4) 05/25/24 Blood Urea Nitrogen 12 mg/dL (9-16) 05/25/24 Sodium 142 mmol/L (135-145) 05/25/24 Potassium 4.2 mmol/L (3.3-5.1) 05/25/24 Chloride 111 mmol/L (96-108) H 05/25/24 Carbon Dioxide 25 mmol/L (22-29) 05/25/24 Calcium 9.3 mg/dL (8.4-10.2) 05/25/24 AST 37 U/L (5-37) 05/25/24 ALT 50 U/L (0-40) H 05/25/24 Total Protein 7.7 g/dL (6.5-8.0) 05/25/24 Albumin 4.1 g/dL (3.5-5.0) 05/25/24 [facility], [facility] Medical History (Updated 06/06/24 @ 14:15 by Ekta Castillo MD) Diabetes mellitus, with long-term current use of insulin Hyperlipidemia Type 2 diabetes mellitus Subclinical hyperthyroidism Multiple thyroid nodules Increased BMI Diabetes Elevated cholesterol HTN (hypertension) Surgical History Hx of hand surgery History of esophagogastroduodenoscopy (EGD) History of esophagogastroduodenoscopy (EGD) H/O colonoscopy Social History Second Hand Smoke Exposure: No Current occupational status: employed 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 2= needs review? 3= comprehend keep point? 4= demonstrates understanding/ competent? NC= Not Covered Topics Learning Objective: Initial visit Initial or post srvc Initial or post srvc Initial or post srvc Initial or post srvc Initial or post srvc Post srvc Comments Pre Edu-assessment/plan Outcome or reassess O utcome or reassess Outcome or reassess Outcome or reassess Outcome or reassess Outcome or reassess Diabetes pathophysiology 1 Healthy eating 1 Being active 1 Taking medication 2 Monitoring glucose 2 Acute complication Chronic complicated Lifestyle and healthy coping Diabetes distress in support ?Diabetes pathophysiology: ?Defined diabetes med identify own type of diabetes; list 3 options for treating diabetes Healthy eating: ?Described effect of type, amount and ?timing of food on blood glucose; list 3 methods for planning meal Being active: ?State effect of exercise on blood glucose level Taking medication: ?State effect of diabetes medications on diabetes; name diabetes medications taking, action and side effects Monitoring glucose: ?Identify recommended blood glucose targets and personal target Acute complication: ?List symptoms and treatment of hyper and hypoglycemia, DKA, sick day guidelines and guidelines for severe weather or situations of crisis and diabetes supply manage Chronic complication: ?To find the relationship of blood glucose levels to long- term complications of diabetes in screening and preventative measures Lifestyle and healthy coping: ?Described lifestyle and healthy coping strategies to rule out diabetes self-management Diabetes to stress and support: ?Recognize Diabetes to stress and be able to identified support options Learning objectives: The patient was provided with verbal and written education on the following topics as outlined below. The patient met all learning objectives and was able to verbalize understanding and provide teach back of education topics discussed . The patient was provided with the opportunity to ask questions and all questions were answered. Patient Assessment Assess patient education level/literacy/barriers Pt is retired, lives with his and his spouse, reports he walks approximately 30 minutes a day 4-5 days a week. In the summer he plays golf. He is currently up to Lantus 30 units daily after 3 days recommended patient increase Lantus to 34 units daily Metformin 1000 mg at bedtime Ozempic 2 mg weekly Patient questions/concerns What is Diabetes? Pathophysiology How the body produces and uses insulin Identify type of DM Risk factors Signs of Diabetes Brief overview of Diabetes Management Monitoring blood sugar Following a meal plan Regular exercise Maintaining a healthy weight Taking medication as needed Members of the care team (PCP, RN, MA, RD, CDE, care services manager) Blood glucose monitoring When/how often to test Target blood sugar ranges Introduction to Nutrition Importance of healthy diet in managing DM Diet is personalized to individual preference Review patient?s regular diet/food preferences Who prepares meals/does food shopping/ Dining out?/ Barriers? How diet effects glucose Eating 3 balanced meals a day with small, healthy snacks between meals Review food groups Carbohydrates: What is a carbohydrate/Which food/food groups are considered carbohydrates Effect of carbohydrates on blood glucose Portion sizes Reading food labels Basic carb counting (if applicable per nursing assessment) Plate method Meal planning Recommendations: Follow plate method, consistent carbs and read nutritional labels. Smart Goal: Patient will work to reduce portion size of carbohydrates between now and next visit Educational Materials: The patient was provided with the following written educational materials: Planning Healthy Meals Handout Patient Response to instructions: Comprehension of Instructions: Fair Readiness to make changes: Contemplation How confident they feel about making changes: Positive Portions of this note were created using voice recognition software, please excuse any words or phrases that may have been misinterpreted. Incluir actividad diaria regular. ADA recomienda 30 minutos de ejercicio 5 d?as a la semana. P?rdida de peso, hable con el PCP o el cardi?logo antes de comenzar un nuevo plan. Mida el nivel de az?car en la jimmy seg?n las indicaciones; Ayuno y comida m?s tr de 2hpp. Observe las tendencias en los resultados. Utilice los resultados y eval?e c?mo los alimentos, la actividad f?alexandr y los medicamentos afectan los resultados de az?car en la jimmy. Lleve el gluc?metro o CGM a la pr?xima visita. Conocer los medicamentos para la diabetes, marina acci?n, los efectos secundarios, la eficacia, la toxicidad, la dosis prescrita, el momento y la frecuencia de administraci?n apropiados, el efecto de las dosis olvidadas y retrasadas y las instrucciones de almacenamiento, viaje y seguridad. T?cnicas de resoluci?n de problemas para el seguimiento de episodios de hipo/hiperglucemia y tratamientos. Reducir los comportamientos de reducci?n de riesgos, dejar de fumar, ex?menes regulares de ojos, pies y dentales. Patient Instructions: Include regular daily activity. ADA recommends 30 minutes of exercise 5 days a week. Weight loss talk to PCP or Venetian Blind Tape Cutter before starting new plan. Test blood sugar as directed; Fasting and 2hpp largest meal. Watch trends in results. Utilize results and to assess how food, physical activity and medications affect blood sugar results. Bring glucometer or CGM to next visit. Be knowledgeable about diabetes medication, its action, side effects, efficacy, toxicity, prescribed dosage, appropriate timing and frequency of administration, effect of missed and delayed doses and instructions for storage, travel and safety. Problem solving techniques to monitor hypo/hyperglycemia episodes and treatments. Reduce risk reduction behaviors, smoking cessation, regular eye, foot and dental examinations. Coding Level of Care Code Est Pt Level 1 (39252) Diagnoses Type 2 diabetes mellitus with diabetic microalbuminuria, without long-term current use of insulin E11.29; R80.9 Diabetes mellitus retirement insulin use: without retirement use Diabetes mellitus complication status: with kidney complications Diabetes mellitus complication detail: with diabetic microalbuminuria
--- OUTSIDE RECORDS SUMMARY | 2024-07-19 10:58 | XMS_ITS | Patient Health Record ---
Author Organization [facility] Address [address] [place] [address] Care Team Providers Care Game Preserve Manager Name Role Phone Nikos SEWELL, Estevan Primary Care Provider Moises Boogie Jr Unavailable Allergies Allergen (clinical drug ingredient) Drug/Non Drug Allergy documented on EMR Reaction Allergy Type Onset Date Status Tree Nuts (uncoded) Unknown Allergy Active Reason For Referral No Information Medications Medication SIG (Take, Route, Frequency, Duration) Notes [...] metFORMIN HCl Active Vitamin B 12 Active Immunizations Vaccine Route Administration Date Status Comme nts Influenza Unknown 04/14/2020 Refused Social History Alcohol Screen Question Answer Notes Did you [...] Never (0 point) Points 4 Interpretation Positive Problems Problem Type SNOMED Code ICD Code Onset Dates Problem Status W/U Status Risk Notes Problem 712148370 Colon cancer screening (Z12.11) Active confirmed Problem 610782591 Elevated liver function tests (R79.89) Active confirmed Problem 385880941 Gastroesophageal reflux disease without esophagitis (K21.9) Active confirmed Problem 51116362 Dysphagia, unspecified type (R13.10) Active confirmed Plan Of Treatment Pending Test Test Name Order Date XR BARIUM SWALLOW-ESOPHAGUS 10/27/2016 US ABD 04/29/2020 Future Test Test Name Order Date UPPER GI ENDOSCOPY 10/27/2016 UPPER GI ENDOSCOPY 04/14/2020 COLONOSCOPY 04/14/2020 Insurance Providers Payer Name Payer Address Payer Phone Subscriber Number Group Number Insured Name Patient Relationship to Insured Coverage Start Date Coverage End Date [facility] [address] [place] [address] [id number] JACK SAHNI Self - patient is the insured Medical (General) History Medical History History ICD Code egd and colon 04-10-2010 dysphagia hyperlipidemia hypertension elevated homocystine level hyperglycemia Surgical History Surgery Date(Month/Year) hand surgery
== END 2024-07-19 10:06 | disposition home or self-care (01) ==
LOC: HO.ENCR 09:24
PROVIDERS: PCP Family Medicine; Visit Provider Registered Nurse Diabetes Educator
DX: E11.29 Type 2 diabetes mellitus with other diabetic kidney complication (principal); R80.9 Proteinuria, unspecified

== ENCOUNTER → 2024-07-19 09:24 | Outpatient (BNVA) | payer OTHER, SELFPAY | PROVIDERS: PCP Family Medicine; Visit Provider Registered Nurse Diabetes Educator | DX: E11.29 Type 2 diabetes mellitus with other diabetic kidney complication (principal); R80.9 Proteinuria, unspecified | CPT/HCPCS: 99211 ==

== ENCOUNTER 2024-07-26 09:54 | Outpatient (AMB) | payer OTHER, SELFPAY ==
[2024-07-26 10:01] VITALS: BMI 31.2
--- NOTE | 2024-07-26 10:01 | MHC.AMNUTRGE ---
VS Expanded 07/26/24 10:01 08/07/24 20:40 Height 5 ft 9 in 5 ft 9 in Weight 210 lb 15.718 oz 211 lb BMI 31.2 31.2 Intake Visit Reasons: T2DM Allergies tree nut [TREE NUT] Allergy (Unknown, Verified 07/03/24 09:34) ANGIOEDEMA Nutrition Presentation Details: Pt presents for MNT for T2DM Pt reports typical meal intake B: coffee with sugar L: sandwich (condiments/ cheese/) carrots or chips, water/milk dinner: meat/protein/starches/milk snack:fruit, cracker, popcorn fried foods 0-1x/wk pastries and similar : 1/d fluids: water, juice, milk food frequency fish: 0-1/wk ve-2 /d fruits 0-1/d dairy 2-3/d starches >20 /d phusical activity -- etoh/smokin--- BS Monitoring Most Recent Diabetes Results: Microalb/Creat Ratio 178.8 ug/mg cr (<30) H 05/25/24 Cholesterol 144 mg/dL (<200) 05/25/24 HDL Cholesterol 45 mg/dL (>40) 05/25/24 Triglycerides 151 mg/dL (<150) H 05/25/24 Creatinine 0.86 mg/dL (0.5-1.4) 05/25/24 Blood Urea Nitrogen 12 mg/dL (9-16) 05/25/24 Sodium 142 mmol/L (135-145) 05/25/24 Potassium 4.2 mmol/L (3.3-5.1) 05/25/24 Chloride 111 mmol/L (96-108) H 05/25/24 Carbon Dioxide 25 mmol/L (22-29) 05/25/24 Calcium 9.3 mg/dL (8.4-10.2) 05/25/24 AST 37 U/L (5-37) 05/25/24 ALT 50 U/L (0-40) H 05/25/24 Total Protein 7.7 g/dL (6.5-8.0) 05/25/24 Albumin 4.1 g/dL (3.5-5.0) 05/25/24 YJT-[id number]-Zv.Jeor Equation Height: 5 ft 9 in Weight: 211 lb Resting Metabolic Rate: 1736.70 Calculated Activity Level: Mild Activity Calories Needed to Maintain Weight: 2387.96 Diagnosis Nutrition problem #1: altered nutrition labs As related to (etiology) #1: diagnosis As evidenced by (sign/symptom) #1: abnormal lab values [facility] Medical History (Updated 06/06/24 @ 14:15 by Ekta Castillo MD) Diabetes mellitus, with long-term current use of insulin Hyperlipidemia Type 2 diabetes mellitus Subclinical hyperthyroidism Multiple thyroid nodules Increased BMI Diabetes Elevated cholesterol HTN (hypertension) Surgical History Hx of hand surgery History of esophagogastroduodenoscopy (EGD) History of esophagogastroduodenoscopy (EGD) H/O colonoscopy Social History Second Hand Smoke Exposure: No Current occupational status: employed 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 Assessment & Plan Assessment & Plan (1) Diabetes mellitus, with long-term current use of insulin: Code(s): E11.9 - Type 2 diabetes mellitus without complications; Z79.4 - shelter (current) use of insulin Category: Medical Qualifiers: Diabetes mellitus type: type 2 Diabetes mellitus complication status: with hyperglycemia Qualified Code(s): E11.65 - Type 2 diabetes mellitus with hyperglycemia; Z79.4 - buttermaker (current) use of insulin Plan: Wt: 96 Kg (08/31 ) Est kcal needs as per MSJ: 2100 -2400 (40% carb, 30% protein/fat) Est fluid needs as per 25-30 ml/d: 2900 Est prot per day as per 1 g/kg bw: 96 Recommend fiber intake : 8-10 g per day and gradually increase to 25-28 g per day for women and 35-38 g for men or as tolerated Recommend sodium intake per day : less than 2000 mg Educated patient on: ( R = reviewed V = verbalizes understanding N/R = needs review N/A = not applicable Food sources of carbohydrate, adequate serving sizes and its role in various health conditions: R Differences between complex carbohydrates a simple carbohydrates, role of fiber in diet: R Lean protein sources of foods: R Differences between types of fats and role in diet (mono on saturated fat fatty acids, saturated fatty acids, trans fats): R Food sources of sodium in salt and healthy modifications for heart health in kidney health: R V R/V Vitamins and minerals: R V N/R Healthy plate method concept: R V Physical activity: Benefits a precaution: R V N/R Hypoglycemia protocol (rule of 15): R V N/R Dietary prevention of Hyperglycemia: R V Patient Instructions: Work on reducing total carb to 60-75 g at meal following healthy plate method Continue choosing fiber rich foods :whole grains, fruit, veg, legumes/beans walk 3-4 times a week 30-45 min unless otherwise specified by MD Coding Level of Care Code Nutr Indiv Intake (01129) Diagnoses Type 2 diabetes mellitus with hyperglycemia, with long-term current use of insulin E11.65; Z79.4 Diabetes mellitus type: type 2 Diabetes mellitus complication status: with hyperglycemia Time Spent (min) 30
[2024-08-07 20:40] VITALS: BMI 31.2
== END 2024-07-26 10:46 | disposition home or self-care (01) ==
LOC: HO.ENCR 09:54
PROVIDERS: PCP Family Medicine; Visit Provider Dietitian, Registered
DX: E11.65 Type 2 diabetes mellitus with hyperglycemia (principal); Z79.4 Long term (current) use of insulin

== ENCOUNTER → 2024-07-26 09:54 | Outpatient (BNVA) | payer OTHER, SELFPAY | PROVIDERS: PCP Family Medicine; Visit Provider Dietitian, Registered | DX: E11.65 Type 2 diabetes mellitus with hyperglycemia (principal); Z79.4 Long term (current) use of insulin; Z71.3 Dietary counseling and surveillance | CPT/HCPCS: 97802 ==

== ENCOUNTER 2024-08-28 10:25 | Outpatient (AMB) | payer OTHER, SELFPAY ==
[2024-08-28 10:28] VITALS: BP 134/82; PULSE 85; O2SAT 96; BMI 30.3
--- NOTE | 2024-08-28 10:28 | A.OFFVIS_ITS ---
Vital Signs 3 08/28/24 10:28 Height 5 ft 9 in Weight 205 lb 0.478 oz BMI 30.3 BP 134/82 Blood Pressure Location Rt brachial Position Sitting Pulse 85 Pulse Source Pulse Oximeter Pulse Oximetry (%) 96 Oxygen Delivery Method Room Air Intake Visit Reasons: MNG, DM Intake Note: Patient presents today for a follow-up on Type 2 Diabetes Mellitus& MNG: Last Diabetic eye exam was on: 05/2024 Last Podiatry exam was on: Patient does not see a Soft Metals Engraver Hand Most recent HbA1c: 7.4%, 08/28/2024 Random Glucose- 135 mg/dL, Today L Water Filterer Helper Required: No Accompanied by: Self / Same As Patient Allergies tree nut [TREE NUT] Allergy (Unknown, Verified 07/03/24 09:34) ANGIOEDEMA Medication List - Last Reconciled 08/28/24 by Ekta Castillo MD amlodipine 5 mg PO DAILY blood sugar diagnostic As directed blood-glucose meter As directed blood-glucose sensor (Dexcom G7 Sensor device) As directed every 10 days blood-glucose,entry manager,cont (Dexcom G7 Welt Cutter) As directed insulin glargine (Lantus Solostar U-100 Insulin) 28 units (0.28 mL) subcut DAILY lancets As directed metformin 1,000 mg PO BEDTIME omeprazole 20 mg PO DAILY pen needle, diabetic (BD Olga 2nd Gen Pen Needle) inject insulin once daily quinapril 40 mg PO DAILY rosuvastatin 20 mg PO BEDTIME semaglutide (Ozempic) 2 mg (0.75 mL) subcut QWEEK HPI Comments Details: 63 YO M with who is here for fup of of Dm type 2 . and multinodular thyroid . Type 2 DM HPI Was previously seeing [facility] endocrinology or [facility] about 3 years ago . Diagnosed with type 2 DM in 2019. Current therapy Metformin 1000 mg at bedtime , b.i.d. dosing caused GI intolerance OZempic 2 mg weekly (increased 06/06/24 howeevr he was out of it for the past 2 weeks) no GI intolrance Lantus 30 units daily at bedtime Prior therapy Switched from Trulicuty to Ozempic due to insurance issues summer 2023 Doesnt rememebr Trulicity dose Family history Father : type 2 DM FIb 4 score 1.45 excludes advanced liver fibrosis Alcohol use : cut down to 10 drinks a week Exercise : walk 3 times a weeks 2 miles a day ,active at work Diet: see nutritionis t Random Glucose: 135 mg/dl HgA1C: 12.1% April 2024 A1c 7.4% 08/28/24 POC Dexcom data downloaded from August 11 to 08/24/2024 Average glucose 156 mg/dL G AL 7% Standard deviation 26 mg/dL Coefficient of variation 16.9% Time CGM active 89% Within target range 84% High 15% Very-% Low 0% Interpretation: Much improved glycemic control, now mostly within target range with no lows. Weight stable : Lost 5 lb since the past month July 2024 Never smoker Family history of ca: sister breast cancer Has cut down beer to 10 drinks a week. Previously was drinking 20 drinks per week. Complications Eye visit: May 2024, no known retinopathy, has macular degenretaion, sees Dr. Danna Jeffrey at ophthalmology [facility] Neuropathy: Denies numbness , tingling in feet , has appointment in October 31 with podiatry No history of CAD or stroke . 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 Multinodular goiter: Subclinical hyperthyroidism Was initially diagnosed with multinodular thyroid in 2014 , had FNA of his left dominant nodule per records which was AUS. Scanned records do not show molecular testing. Over the years he has had some serial ultrasounds. Most recent thyroid ultrasound in 08/2023 as below: Ultrasound .Right Thyroid Lobe: 4.6 x 1.6 x 1.7 cm, volume 6.8 mL. Previously 4.7 x 2.0 x 1.6 cm, volume 7.9 mL. Parenchyma: The gland echotexture is heterogeneous. Thyroid vascularity is normal. Left Thyroid Lobe: 4.3 x 2.3 x 2.4 cm, volume 11.9 mL. Previously 5.1 x 2.6 x 2.7 cm, volume 18.8 mL. Parenchyma: The gland echotexture is heterogeneous. Thyroid vascularity is normal. Isthmus: 0.6 cm in maximum AP dimension. Previously 0.5 cm. Estimated total number of nodules greater than or equal to 1 cm: 2. Art Educator nodules are described as follows: 1. Location: Right upper pole. Size: 0.3 x 0.2 x 0.4 cm, volume 0.08 mL. Previously: 0.3 x 0.2 x 0.3 cm, volume 0.09 mL. Nodule characteristics: Composition: Cystic(0). ACR TI-RADS total points: 0 Previous: 0 ACR TI-RADS category: 1 Previous: 1 Significant change in size (>/= 20% in 2 dimensions and minimal increase of 2 mm or 50% or greater increase in volume): No Change in features: No Change in ACR TI-RADS risk category: No 2. Location: Right mid pole. Size: 0.7 x 0.5 x 0.6 cm, volume 0.11 mL. Previously: Not documented, new. Nodule characteristics: Composition: Solid/almost completely solid (2). Echogenicity: Cannot be determined (1). Shape: Not taller than wide (0). Margins: Ill-defined (0). Echogenic Foci: None (0). ACR TI-RADS total points: 3 ACR TI-RADS category: 3 3. Location: Left mid pole. Size: 2.7 x 2.0 x 2.2 cm, volume 6.2 mL. Previously: 2.1 x 1.9 x 2.7 cm, volume 5.6 mL. Nodule characteristics: Composition: Mixed cystic and solid (1). Echogenicity: Hypoechoic (2). Shape: Not taller than wide (0). Margins: Smooth (0). Echogenic Foci: Macrocalcifications (1). ACR TI-RADS total points: 4 Previous: 2 ACR TI-RADS category: 4 Previous: 2 Significant change in size (>/= 20% in 2 dimensions and minimal increase of 2 mm or 50% or greater increase in volume): Yes Change in features: Yes Change in ACR TI-RADS risk category: Yes 4. Location: Left mid/lower pole. Size: 1.0 x 0.7 x 0.7 cm, volume 0.24 mL. Previously: 0.6 x 0.4 x 0.5 cm, volume 0.06 mL. Nodule characteristics: Composition: Solid/almost completely solid (2). Echogenicity: Hypoechoic (2). Shape: Not taller than wide (0). Margins: Smooth (0). Echogenic Foci: None (0). ACR TI-RADS total points: 4 Previous: 2 ACR TI-RADS category: 4 Previous: 2 Significant change in size (>/= 20% in 2 dimensions and minimal increase of 2 mm or 50% or greater increase in volume): Yes Change in features: No Change in ACR TI-RADS risk category: No 5. Location: Left lower pole/isthmus. Size: 1.1 x 0.8 x 0.9 cm, volume 0.44 mL. Previously: 1.0 x 0.7 x 1.0 cm, volume 0.3 mL. Nodule characteristics: Composition: Solid (2). Echogenicity: Hypoechoic (2). Shape: Not taller than wide (0). Margins: Smooth (0). Echogenic Foci: None (0). ACR TI-RADS total points: 4 Previous: 3 ACR TI-RADS category: 4 Previous: 3 Significant change in size (>/= 20% in 2 dimensions and minimal increase of 2 mm or 50% or greater increase in volume): No Change in features: No Change in ACR TI-RADS risk category: No NODES: No lymphadenopathy is seen in the tissue surrounding the thyroid gland. US/US thyroid IMPRESSION: Heterogeneous multinodular thyroid gland. A 2.7 cm TR 4 nodule in the left mid pole is increase in size and slightly more hypoechoic, if not previously obtained, further evaluation with FNA is recommended. A 1 cm TR 4 nodule in the left mid to lower pole is also increase in size. Recommend follow-up with ultrasound in one year. An additional 1.1 cm TR 4 nodule in the left lower pole is unchanged. Recommend follow-up with ultrasound in one year. Labs from 11/29 showed TSH of 0.24, free T4 of 0.77, free T3 of 3.7. Thyroid uptake and scan from December of 2023 showed increased activity in the left side of the lobe however with decreased uptake in the region of the left dominant nodule concerning for a cold nodule. 01/18/24 :Underwent FNA of the left 2.7 cm nodule whihc was AUS with nuclear atypia, Afirma could not be run due to low RNA yield. 05/16/2024: Underwent repeat FNA of the left 2.7 cm nodule which again came back as AUS with nuclear atypia, Afirma benign 4% risk of malignancy Labs once 05/25/2024 showed low TSH of 0.3, normal free T4 of 0.87, Currently denies any dysphagia or hoarseness of voice. Denies sensation of swelling in the neck or difficulty breathing while lying flat. Denies any tenderness in the neck. Denies any palpitations, tremors, weight loss, frequent bowel movements. Denies any ocular complaints, blurred or double vision. Mother had thyroid issues Denies hair loss, dry skin, heat or cold intolerance, weight gain, confusion. Denies any history of head or neck irradiation. Denies any family history of thyroid cancer. No biotin supplements. Physical exam General: sitting comfortably in no acute distress HEENT: normocephalic/atraumatic Cardiac: normal heart sounds Pulm: in no pulmonary distress Abd: not distended, no tenderness Extremities: no edema, no signs of myxedema Foot exam : not done today Laboratory Tests 04/14/20 03/09/22 06/09/23 10:00 06:04 06:28 Plt Count 146 L Sodium Potassium Creatinine Estimated GFR Glucose (Clinic) Fasting Glucose Hemoglobin A1c % 9.0 7.6 H AST ALT Triglycerides Cholesterol LDL Cholesterol, Calc HDL Cholesterol Vitamin B12 TSH Free T4 Free T3 Total T3 Urine Creatinine Urine Microalbumin Microalb/Creat Ratio 11/08/23 01/04/24 01/04/24 14:15 06:29 06:33 Plt Count Sodium Potassium Creatinine Estimated GFR > 60 Glucose (Clinic) Fasting Glucose 249 H Hemoglobin A1c % 7.8 H AST 16 ALT 24 Triglycerides Cholesterol LDL Cholesterol, Calc HDL Cholesterol Vitamin B12 TSH 0.24 L Free T4 0.77 Free T3 3.7 Total T3 Urine Creatinine 98.71 Urine Microalbumin 195.0 Microalb/Creat Ratio 197.5 H 05/03/24 05/25/24 05/25/24 11:10 06:12 06:20 Plt Count Sodium 142 Potassium 4.2 Creatinine 0.86 Estimated GFR > 60 Glucose (Clinic) 350 H* Fasting Glucose 167 H Hemoglobin A1c % AST ALT Triglycerides 151 H Cholesterol 144 LDL Cholesterol, Calc 69 HDL Cholesterol 45 Vitamin B12 415 TSH 0.30 L Free T4 0.87 Free T3 Total T3 138 Urine Creatinine 133.63 Urine Microalbumin 239.0 Microalb/Creat Ratio 178.8 H Laboratory Tests 08/28/24 08/28/24 10:31 10:37 Glucose (Clinic) 135 H Hgb A1c (Clinic) 7.4 H [facility] Medical History (Updated 06/06/24 @ 14:15 by Ekta Castillo MD) Diabetes mellitus, with long-term current use of insulin Hyperlipidemia Type 2 diabetes mellitus Subclinical hyperthyroidism Multiple thyroid nodules Increased BMI Diabetes Elevated cholesterol HTN (hypertension) Surgical History Hx of hand surgery History of esophagogastroduodenoscopy (EGD) History of esophagogastroduodenoscopy (EGD) H/O colonoscopy Social History Second Hand Smoke Exposure: No Current occupational status: employed 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 Physical Exam Vital Signs: Last Vital Signs Pulse 85 08/28/24 10:28 BP 134/82 08/28/24 10:28 Pulse Ox 96 08/28/24 10:28 Oxygen Delivery Method Room Air 08/28/24 10:28 BMI result Body Mass Index 30.3 Results AMB Hemoglobin A1c 2 AMB Hemoglobin A1c 7.4 % Last Edit by APARNA Fortune on 08/28/24 10:42 Assessment & Plan Assessment & Plan (1) Diabetes mellitus, with long-term current use of insulin: Code(s): E11.9 - Type 2 diabetes mellitus without complications; Z79.4 - nursing home (current) use of insulin Category: Medical Qualifiers: Diabetes mellitus type: type 2 Diabetes mellitus complication status: w ith hyperglycemia Qualified Code(s): E11.65 - Type 2 diabetes mellitus with hyperglycemia; Z79.4 - nursing home (current) use of insulin Plan: 64-year-old male with past medical history significant for type 2 diabetes mellitus now on insulin Diagnosed in 2019. A1c down to 7.4% today 08/28/2024 down from A1c April 2024 12.1%. CGM data downloaded which shows overall much improved glycemic control now with up titration of insulin and Ozempic. He has also lost 5 lb since the past 1. He also has microalbuminuria, we will start SGLT2 inhibitor. He is already on Greg/Arb. Discussed with him importance of glycemic control and risks of her hyperglycemia and cardiovascular comorbidities and microvascular complications. Plan: -Continue Ozempic to 2 mg weekly Continue metformin 1000 mg daily Decrease insulin Lantus to 26 units from 30 units daily Start Jardiance 10 mg daily Follow up with appliance tester and educator See podiatry -advised about cutting down alcohol intake even more, and praised him about cutting it down so far -hypoglycemia education done -discussed importance of 150 minutes a week of exercise (2) Multiple thyroid nodules: Code(s): E04.2 - Nontoxic multinodular goiter Category: Medical Plan: 63-year-old male no family history of thyroid cancer, with no personal history of head or neck radiation coming in for follow-up of multinodular goiter. Has multiple thyroid nodules with left lobe dominant nodule measuring 2.7 cm with macrocalcification. The nodule is of intermediate to high suspicion by LAURA characteristics Had biopsy of the nodule in 2014, however was AUS but molecular testing was not pursued it seems like from the records. Patient does not recall what was done. He was also noted to have a TSH of 0.24 with normal free T4 and free T3. Does not have any symptoms of hyperthyroidism. Given the mildly low TSH level, Concerned whether this left dominant nodule is possibly a hyperfunctioning which would reduce the concern for possible thyroid cancer in this nodule. However thyroid uptake and scan in 12/30 showed increased activity in the left side with photopenic left lobe nodule concerning for a cold nodule. Underwent FNA of the left 2.7 cm nodule 01/18/24 whihc was AUS with nuclear atypia, Afirma could not be run due to low RNA yield. -05/16/2024: Underwent repeat FNA of the left 2.7 cm nodule which again came back as AUS with nuclear atypia, Afirma benign 4% risk of malignancy Plan: -ordered repeat thyroid ultrasound to be done in April 2025 (3) Subclinical hyperthyroidism: Code(s): E05.90 - Thyrotoxicosis, unspecified without thyrotoxic crisis or storm Category: Medical Plan: Patient also noted to have a TSH of 0.24 in November 29. Normal free T4 and free T3 suggestive of subclinical hyperthyroidism. Given his history of nodules, likely has hyper functioning nodules. However thyroid uptake and scan showed increased activity in the left lobe, concerning for hyper functioning nodules but with photopenic appearance of the left dominant nodule as described above for which we did FNA which came back as AUS, [place] category 3, with benign Afirma.. Criteria for treating subclinical hyperthyroidism as TSH level less than 0.1 or age above 65 or history of heart disease, osteoporosis. He just recently turned 64, however his thyroid labs looks somewhat improved most recently 05/25/2024 TSH was noted to be mildly had 0.3, free T4 of 0.87. We will plan to repeat his TFTs in summer. Plan: -repeat TSH, free T4, total T3 prior to next visit in 3 months (4) Hyperlipidemia: Code(s): E78.5 - Hyperlipidemia, unspecified Category: Medical Qualifiers: Hyperlipidemia type: mixed hyperlipidemia Qualified Code(s): E78.2 - Mixed hyperlipidemia Plan: Continue rosuvastatin 20 mg daily. LDL at goal less than 70 mg/dL. done Jun 02 Plan See above Orders: Orders 2 Hemoglobin A1c 3 Months E04.2 - Nontoxic multinodular goiter, E05.90 - Thyrotoxicosis, unspecified without thyrotoxic crisis or storm, E11.65 - Type 2 diabetes mellitus with hyperglycemia, Z79.4 - intermediate project manager (current) use of insulin Free T4 (Free Thyroxine) 3 Months E04.2 - Nontoxic multinodular goiter, E05.90 - Thyrotoxicosis, unspecified without thyrotoxic crisis or storm, E11.65 - Type 2 diabetes mellitus with hyperglycemia, Z79.4 - nursing home (current) use of insulin Triiodothyronine T3 Total 3 Months E04.2 - Nontoxic multinodular goiter, E05.90 - Thyrotoxicosis, unspecified without thyrotoxic crisis or storm, E11.65 - Type 2 diabetes mellitus with hyperglycemia, Z79.4 - nursing home (current) use of insulin Microalbumin, Random (w Creat) 3 Months E04.2 - Nontoxic multinodular goiter, E05.90 - Thyrotoxicosis, unspecified without thyrotoxic crisis or storm, E11.65 - Type 2 diabetes mellitus with hyperglycemia, Z79.4 - intermediate project manager (current) use of insulin AMB Glucose Monitoring Today E11.65 - Type 2 diabetes mellitus with hyperglycemia, Z79.4 - intermediate project manager (current) use of insulin AMB Hemoglobin A1c Today E11.65 - Type 2 diabetes mellitus with hyperglycemia, Z79.4 - nursing home (current) use of insulin Comprehensive Wheeler. Panel Fast 3 Months E04.2 - Nontoxic multinodular goiter, E05.90 - Thyrotoxicosis, unspecified without thyrotoxic crisis or storm, E11.65 - Type 2 diabetes mellitus with hyperglycemia, Z79.4 - intermediate project manager (current) use of insulin Vitamin B12 3 Months E04.2 - Nontoxic multinodular goiter, E05.90 - Thyrotoxicosis, unspecified without thyrotoxic crisis or storm, E11.65 - Type 2 diabetes mellitus with hyperglycemia, Z79.4 - intermediate project manager (current) use of insulin Thyroid Stimulating Hormone 3 Months E04.2 - Nontoxic multinodular goiter, E05.90 - Thyrotoxicosis, unspecified without thyrotoxic crisis or storm, E11.65 - Type 2 diabetes mellitus with hyperglycemia, Z79.4 - intermediate project manager (current) use of insulin Medications: New 2 empagliflozin (Jardiance) 10 mg PO DAILY 30 tabs 6RF Changed 2 From insulin glargine (Lantus Solostar U-100 Insulin) 28 units (0.28 mL) subcut DAILY 15 mL 4RF To insulin glargine (Lantus Solostar U-100 Insulin) 26 units (0.26 mL) subcut DAILY 15 mL 4RF Refilled 2 blood-glucose sensor (Dexcom G7 Sensor device) As directed every 10 days 3 ea 8RF Patient Instructions: Decrease lantus to 26 units daily Start Jardiance 10 mg ( 1 tablet daily), discussed importance of hygiene measures Discussed holding medicine during periods of sickness, dehydration and vomiting Continue Ozempic, metformin as it is Do blood work prior to your next visit Rule of 15 Treatment for Hypoglycemia (Low blood sugar) If your blood glucose is low (70 and below)*, follow the steps below to treat: Eat or drink something from the list below equal to 15 grams of carbohydrate (carb). Rest for 15 minutes Re-check your blood glucose. If it is still low, (below 70), repeat step 1 above. ? If your next meal is more than an hour away, you will need to eat one carbohydrate choice as a snack to keep your blood glucose from going low again. ?If you can't figure out why you have low blood glucose, call your healthcare provider, as your medicine may need to be adjusted. ?Always carry something with you to treat an insulin reaction. Use food from the list below. ? Foods equal to One Carbohydrate Choice (15 grams of carbohydrate): 3 Glucose ?tablets or 4 Dextrose tablets 4 ounces of fruit juice 5-6 ounces (about 1/2 can) of regular soda such as Coke or Pepsi ? 7-8 gummy or regular Life Savers ? 1 Tbsp. of sugar or jelly NOTE: If your blood sugar is less than 50, double the portion above for a total of 30 gm. ?Carbohydrate. ? Follow meal plan of 45-60 g of consistent carbohydrates at 3 meals each day and 15 g of carbohydrate at 1-2 snacks each day. Coding Level of Care Code Est Pt Level 4 (76314) Diagnoses Type 2 diabetes mellitus with hyperglycemia, with long-term current use of insulin E11.65; Z79.4 Diabetes mellitus type: type 2 Diabetes mellitus complication status: with hyperglycemia Multiple thyroid nodules E04.2 Subclinical hyperthyroidism E05.90 Mixed hyperlipidemia E78.2 Hyperlipidemia type: mixed hyperlipidemia Time Spent (min) 30
[2024-08-28 10:37] LABS: Glucose, Whole Blood 135 mg/dL (60-115)
--- OUTSIDE RECORDS SUMMARY | 2024-08-28 12:09 | XMS_ITS | Patient Health Record ---
Author Organization [facility] Address [address] [place] [address] Care Team Providers Care Bowling Pin Setters Installer Name Role Phone Nikos SEWELL, Estevan [...] Problem Status W/U Status Risk Notes Problem 284510741 Colon cancer screening (Z12.11) Active confirmed Problem 282142392 Elevated liver function tests (R79.89) Active confirmed Problem [id number] Gastroesophageal reflux disease without esophagitis (K21.9) Active confirmed Problem [id number] Dysphagia, unspecified type (R13.10) Active confirmed Plan Of Treatment Pending Test Test Name Order Date XR BARIUM SWALLOW-ESOPHAGUS 10/27/2016 US ABD 04/29/2020 Future Test Test Name Order Date UPPER GI ENDOSCOPY 10/27/2016 UPPER GI ENDOSCOPY 04/14/2020 COLONOSCOPY 04/14/2020 Insurance Providers Payer Name Payer Address Payer Phone Subscriber Number Group Number Insured Name Patient Relationship to Insured Coverage Start Date Coverage End Date [facility] [address] [place] [address] [id number] JACK SAHNI Self - patient is the insured Medical (General) History Medical History History ICD Code egd and colon 04-10-2010 dysphagia hyperlipidemia hypertension elevated homocystine level hyperglycemia Surgical History Surgery Date(Month/Year) hand surgery
== END 2024-08-28 10:55 | disposition home or self-care (01) ==
LOC: HO.ENCR 10:25
PROVIDERS: PCP Family Medicine; Visit Provider Student in an Organized Health Care Education/Training Program
DX: E11.65 Type 2 diabetes mellitus with hyperglycemia (principal); Z79.4 Long term (current) use of insulin; E04.2 Nontoxic multinodular goiter; E05.90 Thyrotoxicosis, unspecified without thyrotoxic crisis or storm; E78.2 Mixed hyperlipidemia
CPT/HCPCS: 99214

== ENCOUNTER → 2024-08-28 10:25 | Outpatient (BNVA) | payer OTHER, SELFPAY | PROVIDERS: PCP Family Medicine; Visit Provider Student in an Organized Health Care Education/Training Program | DX: E11.65 Type 2 diabetes mellitus with hyperglycemia (principal); E04.2 Nontoxic multinodular goiter; E05.90 Thyrotoxicosis, unspecified without thyrotoxic crisis or storm; E78.2 Mixed hyperlipidemia; Z79.4 Long term (current) use of insulin; Z79.84 Long term (current) use of oral hypoglycemic drugs; Z79.899 Other long term (current) drug therapy | CPT/HCPCS: 82947; 83036 ==

== ENCOUNTER 2024-09-06 09:53 | Outpatient (AMB) | payer OTHER, SELFPAY ==
[2024-09-06 10:09] VITALS: BMI 29.9
--- NOTE | 2024-09-06 10:09 | A.OFFVIS_ITS ---
VS Expanded 09/06/24 10:09 Height 5 ft 9 in Weight 202 lb 2.622 oz BMI 29.9 Intake Visit Reasons: T2DM Allergies tree nut [TREE NUT] Allergy (Unknown, Verified 07/03/24 09:34) ANGIOEDEMA Nutrition Presentation Details: Pt presents for MNT f/u for T2DM Pt reports doing well , working on diet modifications denies hypoglycemia BS Monitoring Most Recent Diabetes Results: No Data to Display [facility] Medical History (Updated 06/06/24 @ 14:15 by Ekta Castillo MD) Diabetes mellitus, with long-term current use of insulin Hyperlipidemia Type 2 diabetes mellitus Subclinical hyperthyroidism Multiple thyroid nodules Increased BMI Diabetes Elevated cholesterol HTN (hypertension) Surgical History Hx of hand surgery History of esophagogastroduodenoscopy (EGD) History of esophagogastroduodenoscopy (EGD) H/O colonoscopy Social History Second Hand Smoke Exposure: No Current occupational status: employed 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 Assessment & Plan Assessment & Plan (1) Diabetes mellitus, with long-term current use of insulin: Code(s): E11.9 - Type 2 diabetes mellitus without complications; Z79.4 - kitchen operator (current) use of insulin Category: Medical Qualifiers: Diabetes mellitus type: type 2 Diabetes mellitus complication status: with hyperglycemia Qualified Code(s): E11.65 - Type 2 diabetes mellitus with hyperglycemia; Z79.4 - kitchen operator (current) use of insulin Plan: Wt: 96 Kg (08/31 ), 92 kg (09/30) Est kcal needs as per MSJ: 2100 -2400 (40% carb, 30% protein/fat) Est fluid needs as per 25-30 ml/d: 2800 Est prot per day as per 1 g/kg bw: 90 Recommend fiber intake : 8-10 g per day and gradually increase to 25-28 g per day for women and 35-38 g for men or as tolerated Recommend sodium intake per day : less than 2000 mg Educated patient on: ( R = reviewed V = verbalizes understanding N/R = needs review N/A = not applicable * Food sources of carbohydrate, adequate serving sizes and its role in various health conditions: R * Differences between complex carbohydrates a simple carbohydrates, role of fiber in diet: R * Lean protein sources of foods: R * Differences between types of fats and role in diet (mono on saturated fat fatty acids, saturated fatty acids, trans fats): R , V * Food sources of sodium in salt and healthy modifications for heart health in kidney health: R V R/V * Vitamins and minerals: R V N/R * Healthy plate method concept: R V * Physical activity: Benefits a precaution: R V N/R * Hypoglycemia protocol (rule of 15): R V * Dietary prevention of Hyperglycemia: R V Patient Instructions: Have fish at least twice a week Choose baked potato or sweet potato baked in place of fried Continue working on following healthy plate method see sat'd fats vs unsat'd fat education material discussed and provided Coding Level of Care Code Nutr Indiv Subseq (12652) Diagnoses Type 2 diabetes mellitus with hyperglycemia, with long-term current use of insulin E11.65; Z79.4 Diabetes mellitus type: type 2 Diabetes mellitus complication status: with hyperglycemia Time Spent (min) 30
== END 2024-09-06 10:27 | disposition home or self-care (01) ==
LOC: HO.ENCR 09:54
PROVIDERS: PCP Family Medicine; Visit Provider Dietitian, Registered
DX: E11.65 Type 2 diabetes mellitus with hyperglycemia (principal); Z79.4 Long term (current) use of insulin

== ENCOUNTER → 2024-09-06 09:53 | Outpatient (BNVA) | payer OTHER, SELFPAY | PROVIDERS: PCP Family Medicine; Visit Provider Dietitian, Registered | DX: E11.65 Type 2 diabetes mellitus with hyperglycemia (principal); Z71.3 Dietary counseling and surveillance; Z79.4 Long term (current) use of insulin | CPT/HCPCS: 97803 ==

== ENCOUNTER 2024-10-18 06:01 | Outpatient (REF) | payer OTHER, SELFPAY ==
--- OUTSIDE RECORDS SUMMARY | 2024-10-18 06:04 | XMS_ITS | Patient Health Record ---
Author Organization [facility] Address [address] [place] [address] Care Team Providers Care Sqe Name Role Phone Nikos SEWELL, Estevan Primary [...] Problem Status W/U Status Risk Notes Problem [id number] Colon cancer screening (Z12.11) Active confirmed Problem [id number] Elevated liver function tests (R79.89) Active confirmed Problem [id number] Gastroesophageal reflux disease without esophagitis (K21.9) Active confirmed Problem [id number] Dysphagia, unspecified type (R13.10) Active confirmed Plan [...] Date Coverage End Date [employer] [facility] [facility] [address] [place] [address] [id number] JACK SAHNI Self - patient is the insured Medical (General) History Medical History History ICD Code egd and colon 04-10-2010 dysphagia hyperlipidemia hypertension elevated homocystine level hyperglycemia Surgical History Surgery Date(Month/Year) hand surgery
[2024-10-18 07:31] LABS: Estimated Average Glucose 131 mg/dL; Hemoglobin A1c % 6.2 % (<6.0)
[2024-10-18 07:51] LABS: Creatinine Urine 134.65 mg/dL; Microalbum/Creatinine Ratio Ur 133.6 ug/mg cr (<30)
[2024-10-18 07:58] LABS: Alanine Aminotransferase 42 U/L (0-40); Albumin Level 4.6 g/dL (3.5-5.0); Alkaline Phosphatase 51 U/L (39-117); Anion Gap 15 (12-20); Aspartate Amino Transferase 41 U/L (5-37); Bilirubin Total 0.3 mg/dL (0.0-1.0); Blood Urea Nitrogen 20 mg/dL (9-16); Calcium 10.2 mg/dL (8.4-10.2); Carbon Dioxide 26 mmol/L (22-29); Chloride 106 mmol/L (96-108); Cholesterol 184 mg/dL (<200); Estimated Glomerular Filt Rate > 60; Glucose Fasting 132 mg/dL (60-99); HDL Cholesterol 42 mg/dL (>40); LDL Cholesterol Calculated 87 mg/dL (<100); Potassium 4.6 mmol/L (3.3-5.1); Sodium 142 mmol/L (135-145); Total Protein 7.6 g/dL (6.5-8.0); Triglycerides 275 mg/dL (<150)
[2024-10-18 08:11] LABS: Free T4 (Free Thyroxine) 0.81 ng/dL (0.71-1.85); Thyroid Stimulating Hormone 0.23 uIU/mL (0.32-4.0)
[2024-10-18 08:22] LABS: Vitamin B12 349 pg/mL (200-900)
[2024-10-19 07:18] LABS: Triiodothyronine T3 Total 121 ng/dL (76-181)
== END 2024-10-18 06:02 | disposition home or self-care (01) ==
LOC: HO.LAB 06:01
PROVIDERS: Absent Provider Family Medicine; PCP Family Medicine; Visit Provider Student in an Organized Health Care Education/Training Program
DX: E11.65 Type 2 diabetes mellitus with hyperglycemia (principal); Z79.4 Long term (current) use of insulin; E05.90 Thyrotoxicosis, unspecified without thyrotoxic crisis or storm; E04.2 Nontoxic multinodular goiter; I10 Essential (primary) hypertension; E78.00 Pure hypercholesterolemia, unspecified
CPT/HCPCS: 36415; 80053; 80061; 82043; 82550; 82570; 82607; 83036; 84439; 84443; 84480

== ENCOUNTER 2024-10-22 08:54 | Outpatient (AMB) | payer OTHER, SELFPAY ==
--- NOTE | 2024-10-22 08:58 | A.OFFVIS_ITS ---
Intake Intake Visit Reasons: 60 min Respiratory Therapy Instructor Required: No Accompanied by: Self / Same As Patient Allergies tree nut [TREE NUT] Allergy (Unknown, Verified 07/03/24 09:34) ANGIOEDEMA HPI Comprehensive Diabetes Asmnt Most Recent Diabetes Results: 2 Hemoglobin A1c 8.4 % 12/20/19 Microalb/Creat Ratio 133.6 ug/mg cr (<30) H 10/18/24 Cholesterol 184 mg/dL (<200) 10/18/24 HDL Cholesterol 42 mg/dL (>40) 10/18/24 Triglycerides 275 mg/dL (<150) H 10/18/24 Creatinine 1.01 mg/dL (0.5-1.4) 10/18/24 Blood Urea Nitrogen 20 mg/dL (9-16) H 10/18/24 Sodium 142 mmol/L (135-145) 10/18/24 Potassium 4.6 mmol/L (3.3-5.1) 10/18/24 Chloride 106 mmol/L (96-108) 10/18/24 Carbon Dioxide 26 mmol/L (22-29) 10/18/24 Calcium 10.2 mg/dL (8.4-10.2) 10/18/24 AST 41 U/L (5-37) H 10/18/24 ALT 42 U/L (0-40) H 10/18/24 Total Protein 7.6 g/dL (6.5-8.0) 10/18/24 Albumin 4.6 g/dL (3.5-5.0) 10/18/24 [facility] Medical History (Updated 06/06/24 @ 14:15 by Ekta Castillo MD) Diabetes mellitus, with long-term current use of insulin Hyperlipidemia Type 2 diabetes mellitus Subclinical hyperthyroidism Multiple thyroid nodules Increased BMI Diabetes Elevated cholesterol HTN (hypertension) Surgical History Hx of hand surgery History of esophagogastroduodenoscopy (EGD) History of esophagogastroduodenoscopy (EGD) H/O colonoscopy Social History Second Hand Smoke Exposure: No Current occupational status: employed 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 Assessment & Plan Assessment & Plan (1) Type 2 diabetes mellitus: Code(s): E11.9 - Type 2 diabetes mellitus without complications Qualifiers: Diabetes mellitus buttermaker insulin use: without [facility] use Diabetes mellitus complication status: with kidney complications Diabetes mellitus complication detail: with diabetic microalbuminuria Qualified Code(s): E11.29 - Type 2 diabetes mellitus with other diabetic kidney complication; R80.9 - Proteinuria, unspecified Plan: Diabetes self-management education and support participation record Assessment/scale: 1= needs instructed? 2= needs review? 3= comprehend keep point? 4= demonstrates understanding/ competent? NC= Not Covered Topics Learning Objective: Initial visit Initial or post srvc Initial or post srvc Initial or post srvc Initial or post srvc Initial or post srvc Post srvc Comments Pre Edu-assessment/plan Outcome or reassess O utcome or reassess Outcome or reassess Outcome or reassess Outcome or reassess Outcome or reassess Diabetes pathophysiology 1 3 Healthy eating 1 3 Being active 1 3 Taking medication 2 3 Monitoring glucose 2 3 Acute complication 1 3 Chronic complicated 1 3 Lifestyle and healthy coping 2 3 Diabetes distress in support 2 3 ?Diabetes pathophysiology: ?Defined diabetes med identify own type of diabetes; list 3 options for treating diabetes Healthy eating: ?Described effect of type, amount and ?timing of food on blood glucose; list 3 methods for planning meal Being active: ?State effect of exercise on blood glucose level Taking medication: ?State effect of diabetes medications on diabetes; name diabetes medications taking, action and side effects Monitoring glucose: ?Identify recommended blood glucose targets and personal target Acute complication: ?List symptoms and treatment of hyper and hypoglycemia, DKA, sick day guidelines and guidelines for severe weather or situations of crisis and diabetes supply manage Chronic complication: ?To find the relationship of blood glucose levels to long- term complications of diabetes in screening and preventative measures Lifestyle and healthy coping: ?Described lifestyle and healthy coping strategies to rule out diabetes self-management Diabetes to stress and support: ?Recognize Diabetes to stress and be able to identified support options Learning objectives: The patient was provided with verbal and written education on the following topics as outlined below. The patient met all learning objectives and was able to verbalize understanding and provide teach back of education topics discussed . The patient was provided with the opportunity to ask questions and all questions were answered. Patient Assessment Assess patient education level/literacy/barriers Pt is retired, lives with his and his spouse, reports he walks approximately 30 minutes a day 4-5 days a week. In the summer he plays golf. Lantus 26 units Metformin 1000 mg at bedtime Ozempic 2 mg weekly Jardiance 10 mg daily added on 08/28/2024 Patient's last A1c on 10/18/2024 6.2%, down from 7.4 % in August 2024 Learning objectives: The patient was provided with verbal and written education on the following topics as outlined below. The patient met all learning objectives and was able to verbalize understanding and provide teach back of education topics discussed . The patient was provided with the opportunity to ask questions and all questions were answered. Exercise Medical clearance Effect of exercise on blood sugar Start slowly and gradually increase pace/duration over time Goal amount of exercise Checking blood glucose/have a source of carbs with you Diabetes Complications: ?Nephropathy :Kidney Disease ?diabetes can damage the kidneys, which is not only can cause them to fail but can make them lose their ability to filter waste from the blood? ?Retinopathy: Eye complications ?Retinopathy? is the commonest long-term complication of diabetes. It is leading cause of blindness Besides, Retinopathy- People with diabetes? are also prone to cataract and Glaucoma. ?Neuropathy: Nerve damage -It involves temporary or permanent damage to nerve tissue. Nerve tissue gets injured mainly due to decreased blood flow and rise in blood glucose levels. This damage can lead to pain , or loss of sensation it can also include sexual dysfunction in both men and women ? Infections poor healing: People with diabetes? have increased susceptibility to various infections, such as? pneumonias, pyelonephritis, carbuncles and diabetic ulcers. This may be due to poor blood supply, reduced cellular immunity or hyperglycemia. ?Heart Disease And Stroke: People with diabetes are four times more prone to develop Heart disease than those who do not have diabetes ?Depression: Feeling down once in awhile is normal, but some people feel sadness that just won't go away. Life for them seems hopeless. Feeling this way most of the day for two weeks or more is a sign of serious depression ?Gum Disease: People get gum disease when plaque destroys the gums and bone around the teeth. People with diabetes can get gum disease from having high blood glucose levels for a long time Medications (If applicable) * Name of medication? * Dosing/administration instructions? * Mechanism of action? * Potential side effects? * Potential adverse reaction and appropriate treatment? * Review onset, peak, duration Assess for concerns re: insurance coverage, cost, barriers to compliance Insulin/Injectables (If applicable) * Storage/care of insulin?? * Injection sites? * Site rotation? * Onset, peak, duration * Drawing up insulin? * Injecting insulin/other injectables? * Sharps disposalContinuous blood glucose monitoring (if applicable) Hypoglycemia and Hyperglycemia * Signs and symptoms? * Causes?? * Treatment? * Preventing hypoglycemia? * When to seek medical attention Target Goals: * Blood glucose targets and how you feel when your blood glucose is in and out of your target ranges. * Monitoring and knowing your A1C. * What can make blood glucose go up and down and preventing high and low blood glucose. * Review of blood sugar targets in expected goal range and outside of expected goal range. * Problem solving and preventing hyper/hypoglycemia. * Sick day management of diabetes. * Using blood sugar results in decision making process in managing diabetes. ?Patient was receptive to information provided and participated in the discussion. Asked?appropriate questions and demonstrated good understanding of the topics discussed.? ? Lifestyle * Work * Travel * Stress management * Problem solving Know your goals * A1C * Blood sugar targets * Blood pressure * Cholesterol/LDL Urine microalbumin Smart Goal Assessment:Patient will work to reduce portion size of carbohydrates between now and next visit Pt met goal 100% New Goal:? Patient will check his feet daily Educational Materials: The patient was provided with the following written educational materials: ADCES 7 Healthy Behaviors Reducing Risks handout, Target Goal handout Patient Response to instructions: Comprehension of Instructions: Readiness to make changes: a How confident they feel about making changes: Letter of completion of diabetes Education program will be sent to referring provider Portions of this note were created using voice recognition software, please excuse any words or phrases that may have been misinterpreted. Patient Instructions: Include regular daily activity. ADA recommends 30 minutes of exercise 5 days a week. Weight loss talk to PCP or Director Of Customer Acquisition before starting new plan. Test blood sugar as directed; Fasting and 2hpp largest meal. Watch trends in results. Utilize results and to assess how food, physical activity and medications affect blood sugar results. Bring glucometer or CGM to next visit. Be knowledgeable about diabetes medication, its action, side effects, efficacy, toxicity, prescribed dosage, appropriate timing and frequency of administration, effect of missed and delayed doses and instructions for storage, travel and safety. Problem solving techniques to monitor hypo/hyperglycemia episodes and treatments. Reduce risk reduction behaviors, smoking cessation, regular eye, foot and dental examinations. Coding Level of Care Code Est Pt Level 1 (10361) Diagnoses Type 2 diabetes mellitus with diabetic microalbuminuria, without long-term current use of insulin E11.29; R80.9 Diabetes mellitus buttermaker insulin use: without buttermaker use Diabetes mellitus complication status: with kidney complications Diabetes mellitus complication detail: with diabetic microalbuminuria
--- OUTSIDE RECORDS SUMMARY | 2024-10-22 09:22 | XMS_ITS | Patient Health Record ---
Author Organization [facility] Address [address] [place] [address] Care Team Providers Care Frame Coverer Name Role Phone Nikos SEWELL, Estevan Primary Care Provider Moises Boogie Jr Unavailable [phone] Allergies Allergen (clinical drug ingredient) Drug/Non Drug [...] Problem Status W/U Status Risk Notes Problem [id number] Colon cancer screening (Z12.11) Active confirmed Problem 016790299 Elevated liver function tests (R79.89) Active confirmed Problem 952845242 Gastroesophageal reflux disease without esophagitis (K21.9) Active confirmed Problem 26890345 Dysphagia, unspecified type (R13.10) Active confirmed Plan [...] Start Date Coverage End Date [facility] [address] [place] [address] [id number] JACK SAHNI Self - patient is the insured Medical (General) History Medical History History ICD Code egd and colon 04-10-2010 dysphagia hyperlipidemia hypertension elevated homocystine level hyperglycemia Surgical History Surgery Date(Month/Year) hand surgery
== END 2024-10-22 09:27 | disposition home or self-care (01) ==
LOC: HO.ENCR 08:55
PROVIDERS: PCP Family Medicine; Visit Provider Registered Nurse Diabetes Educator
DX: E11.29 Type 2 diabetes mellitus with other diabetic kidney complication (principal); R80.9 Proteinuria, unspecified

== ENCOUNTER → 2024-10-22 08:54 | Outpatient (BNVA) | payer OTHER, SELFPAY | PROVIDERS: PCP Family Medicine; Visit Provider Registered Nurse Diabetes Educator | DX: E11.29 Type 2 diabetes mellitus with other diabetic kidney complication (principal); R80.9 Proteinuria, unspecified; Z71.3 Dietary counseling and surveillance | CPT/HCPCS: 99211 ==

== ENCOUNTER 2024-11-27 09:57 | Outpatient (AMB) | payer OTHER, SELFPAY ==
[2024-11-27 09:59] VITALS: BP 112/70; PULSE 63; O2SAT 94; BMI 29.3
--- NOTE | 2024-11-27 09:59 | A.OFFVIS_ITS ---
Vital Signs 3 11/27/24 09:59 Height 5 ft 9 in Weight 198 lb 6.656 oz BMI 29.3 BP 112/70 Blood Pressure Location Rt brachial Position Sitting Pulse 63 Pulse Source Pulse Oximeter Pulse Oximetry (%) 94 Oxygen Delivery Method Room Air Intake Visit Reasons: MNG, DM Intake Note: Patient presents today for a follow-up on Type 2 Diabetes Mellitus & MNG: Last Diabetic eye exam was on: Has an appt scheduled in the fall Last Podiatry exam was on:10/31 Dr. Holloway Most recent HbA1c: 6.2% 10/18/2024 Random Glucose- 110 mg/dL, Today L Director Media Required: No Accompanied by: Self / Same As Patient Allergies tree nut (TREE NUT) Allergy (Unknown, Verified 11/27/24 10:01) ANGIOEDEMA Medication List - Last Reconciled 11/27/24 by Ekta Castillo MD amlodipine 5 mg PO DAILY blood sugar diagnostic As directed blood-glucose meter As directed blood-glucose sensor (DexSimplyInsured G7 Sensor device) As directed every 10 days blood-glucose,band head saw operator,cont (Dexcom G7 Electronic Health Records Specialist) As directed empagliflozin (Jardiance) 10 mg PO DAILY insulin glargine (Lantus Solostar U-100 Insulin) 26 units (0.26 mL) subcut DAILY lancets As directed metformin 1,000 mg PO BEDTIME omeprazole 20 mg PO DAILY pen needle, diabetic (BD Olga 2nd Gen Pen Needle) inject insulin once daily quinapril 40 mg PO DAILY rosuvastatin 20 mg PO BEDTIME semaglutide (Ozempic) 2 mg (0.75 mL) subcut QWEEK HPI Comments Details: 63 YO M with who is here for fup of of Dm type 2 . and multinodular thyroid . Type 2 DM HPI Was previously seeing [facility] endocrinology or [facility] about 3 years ago . Diagnosed with type 2 DM in 2019. Current therapy Metformin 1000 mg at bedtime , b.i.d. dosing caused GI intolerance OZempic 2 mg weekly (increased 06/06/24 howeevr he was out of it for the past 2 weeks) no GI intolrance Lantus 26 units daily at bedtime Prior therapy Switched from Trulicuty to Ozempic due to insurance issues summer 2023 Doesnt rememebr Trulicity dose Family history Father : type 2 DM FIb 4 score calculated based on labs of May 2024 1.45 excludes advanced liver fibrosis Alcohol use : cut down to 10 drinks a week Exercise : walk 3 times a weeks 2 miles a day ,active at work Diet: see nutritionis t Random Glucose: 135 mg/dl HgA1C: 12.1% April 2024 A1c 7.4% 08/28/24 POC Most recent HbA1c: 6.2% 10/18/2024 Dexcom data downloaded from November 14 to 11/27/2024 Average glucose 139 mg/dL G ID 6.6% Standard deviation 30 mg/dL Coefficient of variation 21.6% Within target range 89% High 11% Very high 0% Low 0% Very low 0% Time CGM active 80% Interpretation: Doing very well with the excellent control of diabetes mellitus. Weight stable : Lost 2 lb since the past month 2-3 months Never smoker Family history of ca: sister breast cancer Has cut down beer to 10 drinks a week. Previously was drinking 20 drinks per week. Complications Eye visit: May 2024, no known retinopathy, has macular degenretaion, sees Dr. Danna Jeffrey at ophthalmology [facility] Neuropathy: Denies numbness , tingling in feet , saw Dr. Holloway October 31 with podiatry No history of CAD or stroke . 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 Multinodular goiter: Subclinical hyperthyroidism Was initially diagnosed with multinodular thyroid in 2014 , had FNA of his left dominant nodule per records which was AUS. Scanned records do not show molecular testing. Over the years he has had some serial ultrasounds. Most recent thyroid ultrasound in 08/2023 as below: Ultrasound .Right Thyroid Lobe: 4.6 x 1.6 x 1.7 cm, volume 6.8 mL. Previously 4.7 x 2.0 x 1.6 cm, volume 7.9 mL. Parenchyma: The gland echotexture is heterogeneous. Thyroid vascularity is normal. Left Thyroid Lobe: 4.3 x 2.3 x 2.4 cm, volume 11.9 mL. Previously 5.1 x 2.6 x 2.7 cm, volume 18.8 mL. Parenchyma: The gland echotexture is heterogeneous. Thyroid vascularity is normal. Isthmus: 0.6 cm in maximum AP dimension. Previously 0.5 cm. Estimated total number of nodules greater than or equal to 1 cm: 2. 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 Location: Right upper pole. Size: 0.3 x 0.2 x 0.4 cm, volume 0.08 mL. Previously: 0.3 x 0.2 x 0.3 cm, volume 0.09 mL. Nodule characteristics: Composition: Cystic(0). ACR TI-RADS total points: 0 Previous: 0 ACR TI-RADS category: 1 Previous: 1 Significant change in size (>/= 20% in 2 dimensions and minimal increase of 2 mm or 50% or greater increase in volume): No Change in features: No Change in ACR TI-RADS risk category: No 2. Location: Right mid pole. Size: 0.7 x 0.5 x 0.6 cm, volume 0.11 mL. Previously: Not documented, new. Nodule characteristics: Composition: Solid/almost completely solid (2). Echogenicity: Cannot be determined (1). Shape: Not taller than wide (0). Margins: Ill-defined (0). Echogenic Foci: None (0). ACR TI-RADS total points: 3 ACR TI-RADS category: 3 3. Location: Left mid pole. Size: 2.7 x 2.0 x 2.2 cm, volume 6.2 mL. Previously: 2.1 x 1.9 x 2.7 cm, volume 5.6 mL. Nodule characteristics: Composition: Mixed cystic and solid (1). Echogenicity: Hypoechoic (2). Shape: Not taller than wide (0). Margins: Smooth (0). Echogenic Foci: Macrocalcifications (1). ACR TI-RADS total points: 4 Previous: 2 ACR TI-RADS category: 4 Previous: 2 Significant change in size (>/= 20% in 2 dimensions and minimal increase of 2 mm or 50% or greater increase in volume): Yes Change in features: Yes Change in ACR TI-RADS risk category: Yes 4. Location: Left mid/lower pole. Size: 1.0 x 0.7 x 0.7 cm, volume 0.24 mL. Previously: 0.6 x 0.4 x 0.5 cm, volume 0.06 mL. Nodule characteristics: Composition: Solid/almost completely solid (2). Echogenicity: Hypoechoic (2). Shape: Not taller than wide (0). Margins: Smooth (0). Echogenic Foci: None (0). ACR TI-RADS total points: 4 Previous: 2 ACR TI-RADS category: 4 Previous: 2 Significant change in size (>/= 20% in 2 dimensions and minimal increase of 2 mm or 50% or greater increase in volume): Yes Change in features: No Change in ACR TI-RADS risk category: No 5. Location: Left lower pole/isthmus. Size: 1.1 x 0.8 x 0.9 cm, volume 0.44 mL. Previously: 1.0 x 0.7 x 1.0 cm, volume 0.3 mL. Nodule characteristics: Composition: Solid (2). Echogenicity: Hypoechoic (2). Shape: Not taller than wide (0). Margins: Smooth (0). Echogenic Foci: None (0). ACR TI-RADS total points: 4 Previous: 3 ACR TI-RADS category: 4 Previous: 3 Significant change in size (>/= 20% in 2 dimensions and minimal increase of 2 mm or 50% or greater increase in volume): No Change in features: No Change in ACR TI-RADS risk category: No NODES: No lymphadenopathy is seen in the tissue surrounding the thyroid gland. US/US thyroid IMPRESSION: Heterogeneous multinodular thyroid gland. A 2.7 cm TR 4 nodule in the left mid pole is increase in size and slightly more hypoechoic, if not previously obtained, further evaluation with FNA is recommended. A 1 cm TR 4 nodule in the left mid to lower pole is also increase in size. Recommend follow-up with ultrasound in one year. An additional 1.1 cm TR 4 nodule in the left lower pole is unchanged. Recommend follow-up with ultrasound in one year. Labs from 11/29 showed TSH of 0.24, free T4 of 0.77, free T3 of 3.7. Thyroid uptake and scan from December of 2023 showed increased activity in the left side of the lobe however with decreased uptake in the region of the left dominant nodule concerning for a cold nodule. 01/18/24 :Underwent FNA of the left 2.7 cm nodule whihc was AUS with nuclear atypia, Afirma could not be run due to low RNA yield. 05/16/2024: Underwent repeat FNA of the left 2.7 cm nodule which again came back as AUS with nuclear atypia, Afirma benign 4% risk of malignancy Labs once 05/25/2024 showed low TSH of 0.3, normal free T4 of 0.87, Currently denies any dysphagia or hoarseness of voice. Denies sensation of swelling in the neck or difficulty breathing while lying flat. Denies any tenderness in the neck. Denies any palpitations, tremors, weight loss, frequent bowel movements. Denies any ocular complaints, blurred or double vision. Mother had thyroid issues Denies hair loss, dry skin, heat or cold intolerance, weight gain, confusion. Denies any history of head or neck irradiation. Denies any family history of thyroid cancer. No biotin supplements. Interval history 10/18/2024: TSH 0.23, free T4 0.81, total T3 121 Physical exam General: sitting comfortably in no acute distress HEENT: normocephalic/atraumatic Cardiac: normal heart sounds Pulm: in no pulmonary distress Abd: not distended, no tenderness Extremities: no edema, no signs of myxedema Foot exam : not done today Laboratory Tests 04/14/20 03/09/22 06/09/23 10:00 06:04 06:28 Plt Count 146 L Sodium Potassium Creatinine Estimated GFR Glucose (Clinic) Fasting Glucose Hemoglobin A1c % 9.0 7.6 H AST ALT Triglycerides Cholesterol LDL Cholesterol, Calc HDL Cholesterol Vitamin B12 TSH Free T4 Free T3 Total T3 Urine Creatinine Urine Microalbumin Microalb/Creat Ratio 11/08/23 01/04/24 01/04/24 14:15 06:29 06:33 Plt Count Sodium Potassium Creatinine Estimated GFR > 60 Glucose (Clinic) Fasting Glucose 249 H Hemoglobin A1c % 7.8 H AST 16 ALT 24 Triglycerides Cholesterol LDL Cholesterol, Calc HDL Cholesterol Vitamin B12 TSH 0.24 L Free T4 0.77 Free T3 3.7 Total T3 Urine Creatinine 98.71 Urine Microalbumin 195.0 Microalb/Creat Ratio 197.5 H 05/03/24 05/25/24 05/25/24 11:10 06:12 06:20 Plt Count Sodium 142 Potassium 4.2 Creatinine 0.86 Estimated GFR > 60 Glucose (Clinic) 350 H* Fasting Glucose 167 H Hemoglobin A1c % AST ALT Triglycerides 151 H Cholesterol 144 LDL Cholesterol, Calc 69 HDL Cholesterol 45 Vitamin B12 415 TSH 0.30 L Free T4 0.87 Free T3 Total T3 138 Urine Creatinine 133.63 Urine Microalbumin 239.0 Microalb/Creat Ratio 178.8 H Laboratory Tests 08/28/24 08/28/24 10:31 10:37 Glucose (Clinic) 135 H Hgb A1c (Clinic) 7.4 H Laboratory Tests 10/18/24 10/18/24 11/27/24 06:10 06:15 10:07 Creatinine 1.01 Estimated GFR > 60 Glucose (Clinic) 110 Fasting Glucose 132 H Hemoglobin A1c % 6.2 H AST 41 H ALT 42 H Triglycerides 275 H Cholesterol 184 LDL Cholesterol, Calc 87 HDL Cholesterol 42 TSH 0.23 L Free T4 0.81 Total T3 121 Urine Creatinine 134.65 Urine Microalbumin 180.0 Microalb/Creat Ratio 133.6 H PFSH Medical History Diabetes mellitus, with long-term current use of insulin Hyperlipidemia Type 2 diabetes mellitus Subclinical hyperthyroidism Multiple thyroid nodules Increased BMI Diabetes Elevated cholesterol HTN (hypertension) Surgical History Hx of hand surgery History of esophagogastroduodenoscopy (EGD) History of esophagogastroduodenoscopy (EGD) H/O colonoscopy Social History Second Hand Smoke Exposure: No Current occupational status: employed 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 Physical Exam Vital Signs: Last Vital Signs Pulse 63 11/27/24 09:59 BP 112/70 11/27/24 09:59 Pulse Ox 94 11/27/24 09:59 Oxygen Delivery Method Room Air 11/27/24 09:59 BMI result Body Mass Index 29.3 Office Procedures Glucose Monitoring Details Details: See [facility] [address] - Glucose monitoring, continuous-physician I&R Procedure code (CPT) selection complete Results Reviewed Results Reviewed: Laboratory Last Values Glucose (Clinic) 110 mg/dL (60-115) 11/27/24 10:07 Assessment & Plan Assessment & Plan (1) Diabetes mellitus, with long-term current use of insulin: Code(s): E11.9 - Type 2 diabetes mellitus without complications; Z79.4 - intermediate card tender (current) use of insulin Category: Medical Qualifiers: Diabetes mellitus type: type 2 Diabetes mellitus complication status: w ith hyperglycemia Qualified Code(s): E11.65 - Type 2 diabetes mellitus with hyperglycemia; Z79.4 - intermediate card tender (current) use of insulin Plan: 64-year-old male with past medical history significant for type 2 diabetes mellitus now on insulin Diagnosed in 2019. A1c in October 2024 down to 6.2% from down to 7.4% today 08/28/2024 down from A1c April 2024 12.1%. CGM data downloaded which shows overall he is now in excellent control of diabetes. He has also lost 5 lb since the past 1. He also has microalbuminuria, started SGLT2 inhibitor in August 2024, He is already on Greg/Arb. Discussed with him importance of glycemic control and risks of her hyperglycemia and cardiovascular comorbidities and microvascular complications. Plan: -Continue Ozempic to 2 mg weekly Continue metformin 1000 mg daily Decrease insulin Lantus to 24 units from 26 units daily continue Jardiance 10 mg daily Follow up with drilling contractor and educator Follow up with Ophthalmology and Podiatry -advised about cutting down alcohol intake even more, and praised him about cutting it down so far -hypoglycemia education done -discussed importance of 150 minutes a week of exercise (2) Multiple thyroid nodules: Code(s): E04.2 - Nontoxic multinodular goiter Category: Medical Plan: 63-year-old male no family history of thyroid cancer, with no personal history of head or neck radiation coming in for follow-up of multinodular goiter. Has multiple thyroid nodules with left lobe dominant nodule measuring 2.7 cm with macrocalcification. The nodule is of intermediate to high suspicion by LAURA characteristics Had biopsy of the nodule in 2015, however was AUS but molecular testing was not pursued it seems like from the records. Patient does not recall what was done. He was also noted to have a TSH of 0.24 with normal free T4 and free T3. Does not have any symptoms of hyperthyroidism. Given the mildly low TSH level, Concerned whether this left dominant nodule is possibly a hyperfunctioning which would reduce the concern for possible thyroid cancer in this nodule. However thyroid uptake and scan in 12/30 showed increased activity in the left side with photopenic left lobe nodule concerning for a cold nodule. Underwent FNA of the left 2.7 cm nodule 01/18/24 whihc was AUS with nuclear atypia, Afirma could not be run due to low RNA yield. -05/16/2024: Underwent repeat FNA of the left 2.7 cm nodule which again came back as AUS with nuclear atypia, Afirma benign 4% risk of malignancy Plan: -ordered repeat thyroid ultrasound to be done in April 2025 (3) Subclinical hyperthyroidism: Code(s): E05.90 - Thyrotoxicosis, unspecified without thyrotoxic crisis or storm Category: Medical Plan: Patient also noted to have a TSH of 0.24 in November 29. Normal free T4 and free T3 suggestive of subclinical hyperthyroidism. Given his history of nodules, likely has hyper functioning nodules. However thyroid uptake and scan showed increased activity in the left lobe, concerning for hyper functioning nodules but with photopenic appearance of the left dominant nodule as described above for which we did FNA which came back as AUS, [place] category 3, with benign Afirma.. Criteria for treating subclinical hyperthyroidism as TSH level less than 0.1 or age above 65 or history of heart disease, osteoporosis. He just recently turned 64, however his thyroid labs looks somewhat improved most recently 05/25/2024 TSH was noted to be mildly had 0.3, free T4 of 0.87. 10/18/2024: TSH 0.23, free T4 0.81, total T3 121. For now we will continue to monitor. Plan to repeat thyroid labs in another 6 months sometime in winter 2024. (4) Hyperlipidemia: Code(s): E78.5 - Hyperlipidemia, unspecified Category: Medical Qualifiers: Hyperlipidemia type: mixed hyperlipidemia Qualified Code(s): E78.2 - Mixed hyperlipidemia Plan: Continue rosuvastatin 20 mg daily. LDL goal less than 70 mg/dL. Most recently labs from October 2024 shows LDL is above goal at 87 mg/dL, triglycerides are also elevated. Discussed lifestyle modification. If he continues to have elevated LDL in the near future, we will consider adding ezetimibe Plan I spent 30 minutes in reviewing the record, seeing the patient and documenting in the medical record. Orders: Orders 2 AMB Glucose Monitoring Today E11.65 - Type 2 diabetes mellitus with hyperglycemia, Z79.4 - assisted (current) use of insulin Medications: Changed 2 From insulin glargine (Lantus Solostar U-100 Insulin) 26 units (0.26 mL) subcut DAILY 15 mL 4RF To insulin glargine (Lantus Solostar U-100 Insulin) 24 units (0.24 mL) subcut DAILY 15 mL 7RF Refilled 2 empagliflozin (Jardiance) 10 mg PO DAILY 90 tabs 4RF metformin 1,000 mg PO BEDTIME 90 tabs 7RF semaglutide (Ozempic) 2 mg (0.75 mL) subcut QWEEK 9 mL 6RF Patient Instructions: Continue Ozempic to 2 mg weekly Continue metformin 1000 mg daily Decrease insulin Lantus to 24 units from 26 units daily continue Jardiance 10 mg daily Rule of 15 Treatment for Hypoglycemia (Low blood sugar) If your blood glucose is low (70 and below)*, follow the steps below to treat: Eat or drink something from the list below equal to 15 grams of carbohydrate (carb). Rest for 15 minutes Re-check your blood glucose. If it is still low, (below 70), repeat step 1 above. ? If your next meal is more than an hour away, you will need to eat one carbohydrate choice as a snack to keep your blood glucose from going low again. ?If you can't figure out why you have low blood glucose, call your healthcare provider, as your medicine may need to be adjusted. ?Always carry something with you to treat an insulin reaction. Use food from the list below. ? Foods equal to One Carbohydrate Choice (15 grams of carbohydrate): 3 Glucose ?tablets or 4 Dextrose tablets 4 ounces of fruit juice 5-6 ounces (about 1/2 can) of regular soda such as Coke or Pepsi ? 7-8 gummy or regular Life Savers ? 1 Tbsp. of sugar or jelly NOTE: If your blood sugar is less than 50, double the portion above for a total of 30 gm. ?Carbohydrate. ? Follow meal plan of 45-60 g of consistent carbohydrates at 3 meals each day and 15 g of carbohydrate at 1-2 snacks each day. Coding Level of Care Code Est Pt Level 4 (84274) Diagnoses Type 2 diabetes mellitus with hyperglycemia, with long-term current use of insulin E11.65; Z79.4 Diabetes mellitus type: type 2 Diabetes mellitus complication status: with hyperglycemia Multiple thyroid nodules E04.2 Subclinical hyperthyroidism E05.90 Mixed hyperlipidemia E78.2 Hyperlipidemia type: mixed hyperlipidemia CPT Codes Details - CPT: 37543 - Glucose monitoring, continuous-physician I&R ([id number]) Time Spent (min) 30
[2024-11-27 10:10] LABS: Glucose, Whole Blood 110 mg/dL (60-115)
--- OUTSIDE RECORDS SUMMARY | 2024-11-27 10:50 | XMS_ITS | Patient Health Record ---
Author Organization [facility] Address [address] [place] [address] Care Team Providers Care Shipping Checker Name Role Phone Estevan Knott MD Primary Care Provider Unavailab Margie Corona Unavailable [phone] Nhung Collins Unavailable [phone] Allergies No Known Allergies Results Component Value Reference Range Notes HEMOGLOBIN A1C (GLYCOHEMOGLO BIN) Reviewed date:10/22/2024 01:06:14 PM Interpretation: Performing Lab: Notes/Report: HEMOGLOBIN A1C % (HH) 6.2 Reason For Referral No Information Medications Medication SIG (Take, Route, Frequency, Duration) Notes Start Date End Date Status metFORMIN HCl Active amLODIPine Besylate 5 MG 1 tablet Orally Once a day Active Rosuvastatin Calcium 20 MG 1 tablet Orally Once a day Active Jardiance 10 MG 1 tablet Orally Once a day Active Vitamin B Complex Ac tive Ozempic (2 MG/DOSE) 8 MG/3ML as directed Subcutaneous Act jesus manuel Ammonium Lactate 12 % 1 application Exte rnally to affected areas of dry skin to feet except for between the toes Twice a day; Duration: 30 days Active Immunizations Vaccine Route Administration Date Status Comme nts Influenza Unknown 10/22/2024 Refused Social History Tobacco Use: Social History Observation Description Date Details (start date - stop date) Never Smoker NA - NA Tobacco use other than smoking: Question Answer Notes Are you an other tobacco user? No Tobacco Control (Standard) Question Answer Notes Tobacco use: Nonsmoker Additional Findings: Tobacco non-user Current no nsmoker AUDIT-C (Standard) Question Answer Notes Did you have a drink contain ing alcohol in the past year? Yes How often did you have a dri nk containing alcohol in the past year? Declined to specify (0 point) How many drinks did you have on a typical day when you were drinking in the past year? Declined to specify (0 point) How often did you have six o r more drinks on one occasion in the past year? Declined to specify (0 point) Points 0 Interpretation Negative Problems Problem Type SNOMED Code ICD Code Onset Dates Problem Status W/U Status Risk Notes Problem Acquired hammer toe of right foot ([id number] 5) Other hammer toe(s) (acquired), right foot (M20.41) Active confirmed Problem Acquired hammer toe of left foot (886452359889954 3) Other hammer toe(s) (acquired), left foot (M20.42) Active confirmed Problem Type II diabetes mellitus without complication (858068446) Type 2 diabetes mellitus without complications (E11.9) Active confirmed Vital Signs Blood pressure diastolic 80 mm Hg 10/22/2024 Height 5ft 9in in 10/22/2024 Blood pressure systolic 124 mm Hg 10/22/2024 Weight 195 lbs 10/22/2024 BMI 28.79 kg/m2 10/22/2024 Encounters Encounter Location Date Provider Diagnosis [facility] [address] [address] 10/22/2024 Margie Black Xerosis of skin L85. 3 ; Other hammer toe(s) (acquired), right foot M20.41 ; Other hammer toe(s) (acquired), left foot M20.42 and Type 2 diabetes mellitus without complications E11.9 [facility] [address] [address] 09/25/2024 Nhung Collins Assessments Encounter Date Diagnosis (ICD Code) Assessment Notes Treatment Notes Treatment Clinical Notes Section Notes 10/22/2024 Xerosis of skin (ICD-10 - L85.3) 10/22/2024 Other hammer toe(s) (acquired), right foot (ICD-10 - M20.41) Patient Educated with: DIABETIC FOOT CARE INSTRUCTIONS.p df (DIABETIC FOOT CARE INSTRUCTIONS.p df) 10/22/2024 Other hammer toe(s) (acquired), left foot (ICD-10 - M20.42) 10/22/2024 Type 2 diabetes mellitus without complications (ICD-10 - E11.9) Plan Of Treatment Next Appt Details Provider Name:Margie Holloway , 10/21/2025 08:00:00 AM, [address] [place], [address], Insurance Providers Payer Name Payer Address Payer Phone Subscriber Number Group Number Insured Name Patient Relationship to Insured Coverage Start Date Coverage End Date [facility] ([facility]) [address] [place] [id number] [phone] [id number] Ike Meyer Self - patient is the insured Medical (General) History Medical History History ICD Code Broken bones covid-19 type II diabetes High Blood Pressure Chicken pox Surgical History Surgery Date(Month/Year) Hand Surgery 11/2000
--- OUTSIDE RECORDS SUMMARY | 2024-11-27 10:50 | XMS_ITS | Patient Health Record ---
Author Organization [facility] Address [address] [place] [address] Care Team Providers Care Engineering Drawings Checker Name Role Phone Nikos (RETIRED) Estevan SEWELL Primary Care Provider Unavailable Moises Blankenship Jr Unavailable [phone] Allergies Allergen (clinical drug ingredient) Drug/Non Drug [...] Problem Status W/U Status Risk Notes Problem 737873543 Colon cancer screening (Z12.11) Active confirmed Problem 717424600 Elevated liver function tests (R79.89) Active confirmed Problem 204825006 Gastroesophageal reflux disease without esophagitis (K21.9) Active confirmed Problem 33429275 Dysphagia, unspecified type (R13.10) Active confirmed Plan Of Treatment Pending Test Test Name Order Date XR BARIUM SWALLOW-ESOPHAGUS 10/27/2016 US ABD 04/29/2020 Future Test Test Name Order Date UPPER GI ENDOSCOPY 10/27/2016 UPPER GI ENDOSCOPY 04/14/2020 COLONOSCOPY 04/14/2020 Insurance Providers Payer Name Payer Address Payer Phone Subscriber Number Group Number Insured Name Patient Relationship to Insured Coverage Start Date Coverage End Date [facility] [address] [place] [address] [id number] JACK SAHNI Self - patient is the insured Medical (General) History Medical History History ICD Code egd and colon 04-10-2010 dysphagia hyperlipidemia hypertension elevated homocystine level hyperglycemia Surgical History Surgery Date(Month/Year) hand surgery
== END 2024-11-27 10:28 | disposition home or self-care (01) ==
LOC: HO.ENCR 09:58
PROVIDERS: PCP Family Medicine; Visit Provider Student in an Organized Health Care Education/Training Program
DX: E11.65 Type 2 diabetes mellitus with hyperglycemia (principal); Z79.4 Long term (current) use of insulin; E04.2 Nontoxic multinodular goiter; E05.90 Thyrotoxicosis, unspecified without thyrotoxic crisis or storm; E78.2 Mixed hyperlipidemia
CPT/HCPCS: 95251; 99214

== ENCOUNTER → 2024-11-27 09:57 | Outpatient (BNVA) | payer OTHER, SELFPAY | PROVIDERS: PCP Family Medicine; Visit Provider Student in an Organized Health Care Education/Training Program | DX: E11.65 Type 2 diabetes mellitus with hyperglycemia (principal) | CPT/HCPCS: 82947 ==

== ENCOUNTER 2024-12-10 09:59 | Outpatient (AMB) | payer OTHER, SELFPAY ==
[2024-12-10 10:12] VITALS: BMI 29.0
--- NOTE | 2024-12-10 10:12 | A.OFFVIS_ITS ---
VS Expanded 12/10/24 10:12 12/10/24 10:32 Height 5 ft 9 in 5 ft 9 in Weight 196 lb 6.91 oz 196 lb BMI 29.0 28.9 Intake Visit Reasons: T2DM Allergies tree nut (TREE NUT) Allergy (Unknown, Verified 11/27/24 10:01) ANGIOEDEMA Nutrition Presentation Details: PT presents for MNT f/u for T2DM Pt reports working on diet modifications, reducing on empty diane foods Typical meal intake b: yogurt and OJ or granola bar L: sand on whole wheat ham/cheese sand and cucumbers ,water D: glass of milk daily ,broccoli chicken pasta/ fish and chips snack on yogurt, lane/grapes food frequency fruits: 1/day fish : 1x/wk dairy : 3+/d ve/day BS Monitoring Most Recent Diabetes Results: Microalb/Creat Ratio, (<30) 133.6 ug/mg cr H 10/18/24 Cholesterol, (<200) 184 mg/dL 10/18/24 HDL Cholesterol, (>40) 42 mg/dL 10/18/24 Triglycerides, (<150) 275 mg/dL H 10/18/24 Creatinine, (0.5-1.4) 1.01 mg/dL 10/18/24 BUN, (9-16) 20 mg/dL H 10/18/24 Sodium, (135-145) 142 mmol/L 10/18/24 Potassium, (3.3-5.1) 4.6 mmol/L 10/18/24 Chloride, (96-108) 106 mmol/L 10/18/24 Carbon Dioxide, (22-29) 26 mmol/L 10/18/24 Calcium, (8.4-10.2) 10.2 mg/dL Δ 10/18/24 AST, (5-37) 41 U/L H 10/18/24 ALT, (0-40) 42 U/L H 10/18/24 Total Protein, (6.5-8.0) 7.6 g/dL 10/18/24 Albumin, (3.5-5.0) 4.6 g/dL 10/18/24 XAA-Gierxmn-Us.Jeor Equation Height: 5 ft 9 in Weight: 196 lb Resting Metabolic Rate: 1668.73 Calculated Activity Level: Mild Activity Calories Needed to Maintain Weight: 2294.50 [facility] Medical History Diabetes mellitus, with long-term current use of insulin Hyperlipidemia Type 2 diabetes mellitus Subclinical hyperthyroidism Multiple thyroid nodules Increased BMI Diabetes Elevated cholesterol HTN (hypertension) Surgical History Hx of hand surgery History of esophagogastroduodenoscopy (EGD) History of esophagogastroduodenoscopy (EGD) H/O colonoscopy Social History Second Hand Smoke Exposure: No Current occupational status: employed 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 & Plan Assessment & Plan (1) Diabetes mellitus, with long-term current use of insulin: Code(s): E11.9 - Type 2 diabetes mellitus without complications; Z79.4 - oil heaterman (current) use of insulin Category: Medical Qualifiers: Diabetes mellitus type: type 2 Diabetes mellitus complication status: with hyperglycemia Qualified Code(s): E11.65 - Type 2 diabetes mellitus with hyperglycemia; Z79.4 - senior care (current) use of insulin Plan: Wt: 96 Kg (08/31 ), 92 kg (09/30), 89 kg (12/31) Est kcal needs as per MSJ: 1900 -2300 (40% carb, 30% protein/fat) Est fluid needs as per 25-30 ml/d: 09253 Est prot per day as per 1 g/kg bw: 90 Recommend fiber intake : 8-10 g per day and gradually increase to 25-28 g per day for women and 35-38 g for men or as tolerated Recommend sodium intake per day : less than 2000 mg Educated patient on: ( R = reviewed V = verbalizes understanding N/R = needs review N/A = not applicable * Food sources of carbohydrate, adequate serving sizes and its role in various health conditions: R * Differences between complex carbohydrates a simple carbohydrates, role of fiber in diet: R * Lean protein sources of foods: R * Differences between types of fats and role in diet (mono on saturated fat fatty acids, saturated fatty acids, trans fats): R , V * Food sources of sodium in salt and healthy modifications for heart health in kidney health: R V R/V * Vitamins and minerals: R * Healthy plate method concept: R V * Physical activity: Benefits a precaution: R * Hypoglycemia protocol (rule of 15): R V * Dietary prevention of Hyperglycemia: R V * REVIEWED alcohol and its relationship to Tg, Liver enzymes, hypo/hyperglycemia: R, V Patient Instructions: Include omega 3 sources of foods (fish at least twice a week, nuts, seeds) Continue working on choosing fiber rich foods (fruits/veg, whole grains) (ex have banana or apple and peanut butter ) Coding Level of Care Code Nutr Indiv Subseq (07106) Diagnoses Type 2 diabetes mellitus with hyperglycemia, with long-term current use of insulin E11.65; Z79.4 Diabetes mellitus type: type 2 Diabetes mellitus complication status: with hyperglycemia
[2024-12-10 10:32] VITALS: BMI 28.9
--- OUTSIDE RECORDS SUMMARY | 2024-12-10 10:38 | XMS_ITS | Patient Health Record ---
Author Organization [facility] Address [address] [place] [address] Care Team Providers Care Oracle Wms Consultant Name Role Phone Nikos (RETIRED) Estevan SEWELL Primary Care Provider Unavailable Moises Blankenship Jr Unavailable [phone] Allergies Allergen (clinical drug ingredient) Drug/Non Drug [...] Problem Status W/U Status Risk Notes Problem 805176147 Colon cancer screening (Z12.11) Active confirmed Problem 955480583 Elevated liver function tests (R79.89) Active confirmed Problem 755320040 Gastroesophageal reflux disease without esophagitis (K21.9) Active confirmed Problem 46755865 Dysphagia, unspecified type (R13.10) Active confirmed Plan Of Treatment Pending Test Test Name Order Date XR BARIUM SWALLOW-ESOPHAGUS 10/27/2016 US ABD 04/29/2020 Future Test Test Name Order Date UPPER GI ENDOSCOPY 10/27/2016 UPPER GI ENDOSCOPY 04/14/2020 COLONOSCOPY 04/14/2020 Insurance Providers Payer Name Payer Address Payer Phone Subscriber Number Group Number Insured Name Patient Relationship to Insured Coverage Start Date Coverage End Date [facility] [address] [place] [address] [id number] JACK SAHNI Self - patient is the insured Medical (General) History Medical History History ICD Code egd and colon 04-10-2010 dysphagia hyperlipidemia hypertension elevated homocystine level hyperglycemia Surgical History Surgery Date(Month/Year) hand surgery
--- OUTSIDE RECORDS SUMMARY | 2024-12-10 10:38 | XMS_ITS | Patient Health Record ---
Author [facility] [place] Address [address] [place] [address] Care Team Providers Care Teachers Aide Name Role Phone Estevan Knott MD Primary Care Provider Unavailab Margie Corona Unavailable [phone] Nhung Collins Unavailable [phone] Allergies No Known Allergies Results Component Value [...] Problem Acquired hammer toe of right foot (279950056041576 5) Other hammer toe(s) (acquired), right foot (M20.41) Active confirmed Problem Other hammer toe(s) (acquired), left foot (M20.42) Active confirmed Problem Type II diabetes mellitus without complication (446184242) Type 2 diabetes mellitus without complications (E11.9) Active confirmed Vital Signs Blood pressure diastolic 80 mm Hg 10/22/2024 Height 5ft 9in in 10/22/2024 Blood pressure systolic 124 mm Hg 10/22/2024 Weight 195 lbs 10/22/2024 BMI 28.79 kg/m2 10/22/2024 Encounters Encounter Location Date Provider Diagnosis [facility] [address] [address] 10/22/2024 Margie Black Xerosis of skin L85. 3 ; Other hammer toe(s) (acquired), right foot M20.41 ; Other hammer toe(s) (acquired), left foot M20.42 and Type 2 diabetes mellitus without complications E11.[address] [facility] [address] 09/25/2024 Nhung Collins Assessments Encounter Date Diagnosis [...] Name:Margie Holloway , 10/21/2025 08:00:00 AM, [address], [place], [address], Insurance Providers Payer Name Payer Address Payer Phone Subscriber Number Group Number Insured Name Patient Relationship to Insured Coverage Start Date Coverage End Date [facility] [address] [place] [address] [id number] Ike Meyer Self - patient is the insured Medical (General) History Medical History History ICD Code Broken bones covid-19 type II diabetes High Blood Pressure Chicken pox Surgical History Surgery Date(Month/Year) Hand Surgery 11/2000
== END 2024-12-10 10:26 | disposition home or self-care (01) ==
LOC: HO.ENCR 09:59
PROVIDERS: PCP Family Medicine; Visit Provider Dietitian, Registered
DX: E11.65 Type 2 diabetes mellitus with hyperglycemia (principal); Z79.4 Long term (current) use of insulin

== ENCOUNTER → 2024-12-10 09:59 | Outpatient (BNVA) | payer OTHER, SELFPAY | PROVIDERS: PCP Family Medicine; Visit Provider Dietitian, Registered | DX: E11.65 Type 2 diabetes mellitus with hyperglycemia (principal); Z79.4 Long term (current) use of insulin | CPT/HCPCS: 97803 ==

== ENCOUNTER 2025-01-22 07:56 | Outpatient (AMB) | payer OTHER, SELFPAY ==
--- NOTE | 2025-01-22 08:03 | MHC.PC.OV ---
Vital Signs 01/22/25 08:06 Height 5 ft 9 in Weight 89.811 kg BMI 29.2 BP 138/88 Pulse 61 Pulse Source Pulse Oximeter Temp 97.3 F Temp Source Temporal Artery Scan Pulse Oximetry (%) 97 Oxygen Delivery Method Room Air Intake Visit Reasons: 3 MO F/UP - SUE PT City Recorder Required: No Accompanied by: Self / Same As Patient Allergies tree nut (TREE NUT) Allergy (Unknown, Verified 01/22/25 08:03) ANGIOEDEMA Medication List - Last Reconciled 01/22/25 by SYDNI Mccarty amlodipine 5 mg PO DAILY blood sugar diagnostic As directed blood-glucose meter As directed blood-glucose sensor (Dexcom G7 Sensor device) As directed every 10 days blood-glucose,newsperson,cont (Dexcom G7 Sub Master) As directed empagliflozin (Jardiance) 10 mg PO DAILY insulin glargine (Lantus Solostar U-100 Insulin) 24 units (0.24 mL) subcut DAILY lancets As directed lisinopril 40 mg PO DAILY metformin 1,000 mg PO BEDTIME omeprazole 20 mg PO DAILY pen needle, diabetic As directed pen needle, diabetic (BD Olga 2nd Gen Pen Needle) inject insulin once daily rosuvastatin 20 mg PO BEDTIME semaglutide (Ozempic) 2 mg (0.75 mL) subcut QWEEK sildenafil (Viagra) 50 mg PO DAILY PRN vitamin B complex 1 cap PO DAILY Tobacco use date assessed: 01/22/25 Fall risk assessment: No Falls in past year Last assessed Fall Risk: 01/22/25 Dental Screening Dental Screen Date: 01/22/25 Did you have a dental visit in the last 12 months?: Yes Did you have a dental problem in the last 6 months where you did not have access to dental care?: No Was dental information given to patient?: No HPI HPI Comments History of Present Illness Details 64-year-old male with history of hypertension, type 2 diabetes, GERD, hyperlipidemia Type 2 diabetes-following with [facility] [place] [place] endocrinology. Last hemoglobin A1c 6.2%. Compliant with Ozempic 2 mg weekly, metformin 1000 mg at bedtime, 24 units of Lantus daily, and Jardiance 10 mg daily. Not checking sugars as CGM not working. [facility] 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 Hypertension-on amlodipine 5 mg, lisinopril 40 mg. BP 138/88. HLD- rosuvastatin GERD- ppi BCC- scalp, R hand. NE derm yearly Concerns: ED Health Maintenance: Colonoscopy 05/2020, 10 year follow advised. ROS: General: No fevers, malaise, unintentional weight loss HEENT: No blurred vision, diplopia. No sore throat, nasal congestion, rhinorrhea, sinus pain, ear pain Cardiovascular: No chest pain, palpitations, or leg edema Respiratory: No shortness of breath, wheezing, cough GI: No abdominal pain, nausea, vomiting, diarrhea, constipation, melena, hematochezia : No dysuria, hematuria, increased urinary frequency, decreased urinary output MSK: No myalgia, back pain Neuro: No headaches, weakness, paresthesias Skin: No rashes or lesions EXAM: Constitutional - Awake and Alert, No apparent distress Eyes - PERRL Cardiovascular - S1S2, RRR, No edema Respiratory - Normal lung expansion, Normal respiratory effort, No respiratory distress, CTA bilaterally Extremities - no calf tenderness bilaterally, no swelling Skin - Warm/Dry Neurological - Alert & oriented x3 Psychological - Appropriate affect ON LICENSE OF [facility] Medical History (Updated 01/22/25 @ 08:28 by SYDNI Mccarty) 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 Cognitive needs: No Hearing needs: No Vision needs: Yes (Reading glasses) Questionnaire PHQ-9 Over the last 2 weeks, how often have you been bothered by any of the following problems? 1. Little interest or pleasure in doing things: not at all 2. Feeling down, depressed, or hopeless: not at all Depression Screening Interpretation: Negative Depression Screening Done: Yes Source: Developed by Drs. José Miguel Allison, Stefano Larson and colleagues, with an educational yee from [employer]. Thrive Questionnaire Date Thrive assessed: 01/22/25 I am a: Patient What is your living situation today?: I have a steady place to live Within the past 12 months, did the food you bought not last and you didn't have the money to get more?: Never true Within the past 12 months, did you worry whether your food would run out before you got money to buy more?: Never true Do you have trouble paying for medicines?: No Do you have trouble getting transportation to medical appointments?: No Do you have trouble paying your heating and electricity bill?: No Do you have trouble taking care of your child, family member or friend?: No Do you have trouble with day-to-day activities such as bathing, preparing meals, shopping, managing finances, etc.?: No Are you currently unemployed and looking for a job?: No Are you interested in more education?: No Please select the resources that you would like help with: None THRIVE Score: 0 REBECCA-7 AMB Questionnaire REBECCA-7 Date REBECCA - 7 assessed: 01/22/25 Feeling nervous, anxious, or on edge: 1 = Several days Not being able to stop or control worryin = Several days Worrying too much about different things: 1 = Several days Trouble relaxin = Several days Being so restless that it is hard to sit still: 0 = Not at all Becoming easily annoyed or irritable: 2 = More than half the days Feeling afraid as if something awful might happen: 0 = Not at all Total REBECCA-7 score (0-4 normal; 5-9 mild; 10-14 moderate; 15-21 severe): 6 Source: Developed by Drs. José Miguel Allison, Stefano Larson and colleagues, with an educational yee from [employer]. Physical exam (Primary Care) Vital Signs: Last Vital Signs Temp 97.3 F 01/22/25 08:06 Pulse 61 01/22/25 08:06 BP 138/88 01/22/25 08:06 Pulse Ox 97 01/22/25 08:06 Oxygen Delivery Method Room Air 01/22/25 08:06 BMI result Body Mass Index 29.2 Tobacco/Smoking Status: Tobacco use Status Tobacco use date assessed 01/22/25 01/22/25 08:12 Patient Tobacco Use Status Never used Tobacco 01/22/25 08:12 e-Cigarette/Vaping Use Never Used 01/22/25 08:12 Depression Screening Interpretation: Negative Thrive Assessment: Date of Thrive Assessment Date Thrive assessed 01/22/25 01/22/25 08:12 Coding Level of Care Code New Pt Level 4 (61423) Complex EM visit Add On G2211 Diagnoses 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 A1c ordered. Continue current therapies. Continue following with endocrinology. Sildenafil prescribed for ED. Counseled on side effects and dosing (2) HTN (hypertension): Code(s): I10 - Essential (primary) hypertension Category: Medical Plan: Controlled. Continue current therapies (3) Hyperlipidemia: Code(s): E78.5 - Hyperlipidemia, unspecified Category: Medical Qualifiers: Hyperlipidemia type: mixed hyperlipidemia Qualified Code(s): E78.2 - Mixed hyperlipidemia Plan: Lipid panel ordered. Continue Crestor. Diet low in saturated fats and highly processed foods Plan Follow-up in the office in 4 months. Labs to be completed today as well as several days prior to next visit Orders: Orders Basic Metabolic Panel Today E11.29 - Type 2 diabetes mellitus with other diabetic kidney complication, E78.2 - Mixed hyperlipidemia, I10 - Essential (primary) hypertension, R80.9 - Proteinuria, unspecified Lipid Panel Today E11.29 - Type 2 diabetes mellitus with other diabetic kidney complication, E78.2 - Mixed hyperlipidemia, I10 - Essential (primary) hypertension, R80.9 - Proteinuria, unspecified Prostate Specific Antigen Today E11.29 - Type 2 diabetes mellitus with other diabetic kidney complication, E78.2 - Mixed hyperlipidemia, I10 - Essential (primary) hypertension, R80.9 - Proteinuria, unspecified Liver Panel 4 Months E11. - Type 2 diabetes mellitus with other diabetic kidney complication, E78.2 - Mixed hyperlipidemia, I10 - Essential (primary) hypertension, R80.9 - Proteinuria, unspecified Microalbumin, Random (w Creat) 4 Months . - Type 2 diabetes mellitus with other diabetic kidney complication, E78.2 - Mixed hyperlipidemia, I10 - Essential (primary) hypertension, R80.9 - Proteinuria, unspecified Hemoglobin A1c Today . - Type 2 diabetes mellitus with other diabetic kidney complication, E78.2 - Mixed hyperlipidemia, I10 - Essential (primary) hypertension, R80.9 - Proteinuria, unspecified Liver Panel Today . - Type 2 diabetes mellitus with other diabetic kidney complication, E78.2 - Mixed hyperlipidemia, I10 - Essential (primary) hypertension, R80.9 - Proteinuria, unspecified Basic Metabolic Panel 4 Months . - Type 2 diabetes mellitus with other diabetic kidney complication, E78.2 - Mixed hyperlipidemia, I10 - Essential (primary) hypertension, R80.9 - Proteinuria, unspecified Hemoglobin A1c 4 Months . - Type 2 diabetes mellitus with other diabetic kidney complication, E78.2 - Mixed hyperlipidemia, I10 - Essential (primary) hypertension, R80.9 - Proteinuria, unspecified Lipid Panel 4 Months . - Type 2 diabetes mellitus with other diabetic kidney complication, E78.2 - Mixed hyperlipidemia, I10 - Essential (primary) hypertension, R80.9 - Proteinuria, unspecified Medications: New sildenafil (Viagra) administer 30 minutes to 4 hours before activity 50 mg PO DAILY PRN 14 tabs 5RF sexual activity
--- OUTSIDE RECORDS SUMMARY | 2025-01-22 08:03 | XMS_ITS | Patient Health Record ---
Author [facility] Address [address] [place] [place] [address] Care Team Providers Care Middle [employer] Art Teacher Name Role Phone Estevan Knott MD Primary Care Provider Unavailab Margie Corona Unavailable [phone] Nhung Collins Unavailable [phone] Allergies No Known Allergies Results Component Value [...] Problem Acquired hammer toe of right foot (673295689889581 5) Other hammer toe(s) (acquired), right foot (M20.41) Active confirmed Problem Acquired hammer toe of left foot (939611981388813 3) Other hammer toe(s) (acquired), left foot (M20.42) Active confirmed Problem Type II diabetes mellitus without complication (537393592) Type 2 diabetes mellitus without complications (E11.9) Active confirmed Vital Signs Blood pressure diastolic 80 mm Hg 10/22/2024 Height 5ft 9in in 10/22/2024 Blood pressure systolic 124 mm Hg 10/22/2024 Weight 195 lbs 10/22/2024 BMI 28.79 kg/m2 10/22/2024 Encounters Encounter Location Date Provider Diagnosis [facility] [address] [address] 10/22/2024 Margie Black Xerosis of skin L85. 3 ; Other hammer toe(s) (acquired), right foot M20.41 ; Other hammer toe(s) (acquired), left foot M20.42 and Type 2 diabetes mellitus without complications E11.9 [facility] [address] [address] 09/25/2024 Nhung Collins Assessments Encounter Date Diagnosis [...] Name:Margie Holloway , 10/21/2025 08:00:00 AM, [address] [place], [address], Insurance Providers Payer Name Payer Address Payer Phone Subscriber Number Group Number Insured Name Patient Relationship to Insured Coverage Start Date Coverage End Date [facility] [address] [place] [address] [phone] [id number] Ike Meyer Self - patient is the insured Medical (General) History Medical History History ICD Code Broken bones covid-19 type II diabetes High Blood Pressure Chicken pox Surgical History Surgery Date(Month/Year) Hand Surgery 11/2000
--- OUTSIDE RECORDS SUMMARY | 2025-01-22 08:03 | XMS_ITS | Patient Health Record ---
Author Organization [facility] Address [address] [place] [address] Care Team Providers Care Body Artist Name Role Phone Nikos (RETIRED) Estevan SEWELL Primary Care Provider Unavailable Moises Blankenship Jr Unavailable [phone] Allergies Allergen (clinical drug ingredient) Drug/Non Drug [...] Problem Status W/U Status Risk Notes Problem 909565348 Colon cancer screening (Z12.11) Active confirmed Problem 252932996 Elevated liver function tests (R79.89) Active confirmed Problem 504617889 Gastroesophageal reflux disease without esophagitis (K21.9) Active confirmed Problem 44577635 Dysphagia, unspecified type (R13.10) Active confirmed Plan Of Treatment Pending Test Test Name Order Date XR BARIUM SWALLOW-ESOPHAGUS 10/27/2016 US ABD 04/29/2020 Future Test Test Name Order Date UPPER GI ENDOSCOPY 10/27/2016 UPPER GI ENDOSCOPY 04/14/2020 COLONOSCOPY 04/14/2020 Insurance Providers Payer Name Payer Address Payer Phone Subscriber Number Group Number Insured Name Patient Relationship to Insured Coverage Start Date Coverage End Date [facility] [address] [place] [address] [id number] JACK SAHNI Self - patient is the insured Medical (General) History Medical History History ICD Code egd and colon 04-10-2010 dysphagia hyperlipidemia hypertension elevated homocystine level hyperglycemia Surgical History Surgery Date(Month/Year) hand surgery
[2025-01-22 08:06] VITALS: BP 138/88; PULSE 61; TEMP 36.3; O2SAT 97; BMI 29.2
== END 2025-01-22 08:32 | disposition home or self-care (01) ==
LOC: HO.HMCHD 07:57
PROVIDERS: PCP Family Medicine; Visit Provider Physician Assistant
DX: E11.40 Type 2 diabetes mellitus with diabetic neuropathy, unspecified (principal); N52.1 Erectile dysfunction due to diseases classified elsewhere; I10 Essential (primary) hypertension; E78.2 Mixed hyperlipidemia

== ENCOUNTER 2025-02-19 06:00 | Outpatient (REF) | payer OTHER, SELFPAY ==
--- OUTSIDE RECORDS SUMMARY | 2025-02-19 06:04 | XMS_ITS | Patient Health Record ---
Author Organization [facility] Address [address] [place] [address] Care Team Providers Care Clipper Counters Name Role Phone Nikos (RETIRED) Estevan SEWELL Primary Care Provider Unavailable Moises Blankenship Jr Unavailable [phone] Allergies Allergen (clinical drug ingredient) Drug/Non Drug [...] at 5:00 p.m. the day before the procedure; Duration: 1 day 04/14/2020 Active iron Active Atorvastatin [...] Problem Status W/U Status Risk Notes Problem Colon cancer screening (526072644) Colon cancer screening (Z12.11) Active confirmed Problem Elevated liver enzymes level (769546281) Elevated liver function tests (R79.89) Active confirmed Problem Gastroesophageal reflux disease without esophagitis (654543014) Gastroesophageal reflux disease without esophagitis (K21.9) Active confirmed Problem Dysphagia (76199080) Dysphagia, unspecified type (R13.10) Active confirmed Plan Of Treatment Pending Test Test Name Order Date XR BARIUM SWALLOW-ESOPHAGUS 10/27/2016 US ABD 04/29/2020 Future Test Test Name Order Date UPPER GI ENDOSCOPY 10/27/2016 UPPER GI ENDOSCOPY 04/14/2020 COLONOSCOPY 04/14/2020 Insurance Providers Payer Name Payer Address Payer Phone Subscriber Number Group Number Insured Name Patient Relationship to Insured Coverage Start Date Coverage End Date [facility] [address] [place] [address] [id number] JACK SAHNI Self - patient is the insured Medical (General) History Medical History History ICD Code egd and colon 04-10-2010 dysphagia hyperlipidemia hypertension elevated homocystine level hyperglycemia Surgical History Surgery Date(Month/Year) hand surgery
--- OUTSIDE RECORDS SUMMARY | 2025-02-19 06:04 | XMS_ITS | Patient Health Record ---
[facility] [place] Address [address] [place] [address] Care Team Providers Care Feather Renovator Name Role Phone Estevan Knott MD Primary Care Provider Unavailab Margie Corona Unavailable [phone] Nhung Collins Unavailable [phone] Allergies No Known Allergies Results Component Value [...] Problem Acquired hammer toe of right foot (976679731909211 5) Other hammer toe(s) (acquired), right foot (M20.41) Active confirmed Problem Acquired hammer toe of left foot (375232204060291 3) Other hammer toe(s) (acquired), left foot (M20.42) Active confirmed Problem Type II diabetes mellitus without complication (864466375) Type 2 diabetes mellitus without complications (E11.9) Active confirmed Vital Signs Blood pressure diastolic 80 mm Hg 10/22/2024 Height 5ft 9in in 10/22/2024 Blood pressure systolic 124 mm Hg 10/22/2024 Weight 195 lbs 10/22/2024 BMI 28.79 kg/m2 10/22/2024 Encounters Encounter Location Date Provider Diagnosis [facility] [address] [address] 10/22/2024 Margie Black Xerosis of skin L85. 3 ; Other hammer toe(s) (acquired), right foot M20.41 ; Other hammer toe(s) (acquired), left foot M20.42 and Type 2 diabetes mellitus without complications E11.[address] [facility] [address] [address] 09/25/2024 Nhung Collins Assessments Encounter Date Diagnosis [...] Name:Margie Holloway , 10/21/2025 08:00:00 AM, [address] [place], [address], Insurance Providers Payer Name Payer Address Payer Phone Subscriber Number Group Number Insured Name Patient Relationship to Insured Coverage Start Date Coverage End Date [facility] [address] [place] [phone] [id number] Ike Meyer Self - patient is the insured Medical (General) History Medical History History ICD Code Broken bones covid-19 type II diabetes High Blood Pressure Chicken pox Surgical History Surgery Date(Month/Year) Hand Surgery 11/2000
[2025-02-19 08:02] LABS: Alanine Aminotransferase 27 U/L (0-40); Albumin Level 4.2 g/dL (3.5-5.0); Alkaline Phosphatase 50 U/L (39-117); Anion Gap 12 (12-20); Aspartate Amino Transferase 27 U/L (5-37); Blood Urea Nitrogen 21 mg/dL (9-16); Calcium 9.4 mg/dL (8.4-10.2); Carbon Dioxide 22 mmol/L (22-29); Chloride 112 mmol/L (96-108); Cholesterol 182 mg/dL (<200); Estimated Glomerular Filt Rate > 60; HDL Cholesterol 42 mg/dL (>40); Potassium 4.7 mmol/L (3.3-5.1); Sodium 141 mmol/L (135-145); Total Protein 7.1 g/dL (6.5-8.0); Triglycerides 182 mg/dL (<150)
[2025-02-19 08:23] LABS: Prostate Specific Antigen 0.46 ng/mL (<0.05-4.0)
== END 2025-02-19 06:01 | disposition home or self-care (01) ==
LOC: HO.LAB 06:00
PROVIDERS: PCP Physician Assistant; Visit Provider Physician Assistant
DX: E11.29 Type 2 diabetes mellitus with other diabetic kidney complication (principal); E78.2 Mixed hyperlipidemia; R80.9 Proteinuria, unspecified; I10 Essential (primary) hypertension; Z12.5 Encounter for screening for malignant neoplasm of prostate
CPT/HCPCS: 36415; 80048; 80061; 80076; 83036; 84153

== ENCOUNTER 2025-04-17 14:47 | Outpatient (REF) | payer OTHER, SELFPAY ==
--- NOTE | ~2025-04-17 | US_ITS ---
EXAMINATION: US THYROID CLINICAL INFORMATION: Goiter COMPARISON: August 09, 2023. TECHNIQUE: Linear transducer grayscale and color Doppler examination with attention to the region of the thyroid. FINDINGS: SIZE: Measurements of the thyroid lobes and nodules are given in sagittal, anteroposterior and transverse dimensions respectively. Right Thyroid Lobe: 4.0 x 2.2 x 2.2 cm, volume 10.1 mL. Previous: 4.6 x 1.6 x 1.7 cm, volume: 6.8 cc. Parenchyma: The gland echotexture is heterogeneous. Thyroid vascularity is normal. Left Thyroid Lobe: 5.2 x 2.8 x 2.7 cm, volume 21.3 mL. Previous: 4.3 x 2.3 x 2.4 cm, volume: 11.9 cc. Parenchyma: The gland echotexture is heterogeneous. Thyroid vascularity is normal. Isthmus: 1.1 cm in maximum AP dimension. Previous: 0.6 cm. Estimated total number of nodules greater than or equal to 1 cm: 2. Tire Adjuster nodules are described as follows: 1. Location: Midportion left lobe.. Size: 2.5 x 1.9 x 2.0 cm, volume 5.0 mL. Previous: 2.7 x 2.0 x 2.2 cm, volume: 6.2 cc. Nodule characteristics: Composition: Solid (2). Echogenicity: Hypoechoic (2). Shape: Not taller than wide (0). Margins: Smooth (0). Echogenic Foci: Macrocalcifications (1). ACR TI-RADS total points: 5 ACR TI-RADS category: 4 2. Location: Lower pole left lobe. Size: 1.2 x 0.8 x 1.0 cm, volume 0.5 mL. Previous: 1.1 x 0.8 x 0.9 cm, volume: 0.3 cc. Nodule characteristics: Composition: Solid (2). Echogenicity: Very hypoechoic (3). Shape: Not taller than wide (0). Margins: Ill-defined (0). Echogenic Foci: None (0). ACR TI-RADS total points: 5 ACR TI-RADS category: 4 3. Location: The midportion left lobe. Size: 0.6 x 0.7 x 0.7 cm, volume 0.2 mL. Previous: 1.0 x 0.7 x 0.7 cm, volume 0.2 cc. Nodule characteristics: Composition: Solid (2). Echogenicity: Very hypoechoic (3). Shape: Not taller than wide (0). Margins: Smooth (0). Echogenic Foci: None (0). ACR TI-RADS total points: 5 ACR TI-RADS category: 4 NODES: No lymphadenopathy is seen in the tissue surrounding the thyroid gland. US/US thyroid IMPRESSION: ACR TI-RADS category 4 ACR TI-RADS RECOMMENDATION REFERENCE: Ultrasound-guided fine-needle aspiration, followup ultrasound, no further follow up. * TR1 (0 point) and TR2 (2 points): No FNA or follow up. * TR3 (3 points): FNA if more than or equal to 2.5 cm in maximum dimension, followup ultrasound in 1, 3 and 5 years if 1.5 to 2.4 cm in maximum dimension. * TR4 (4-6 points): FNA if more than or equal to 1.5 cm in maximum dimension, followup ultrasound in 1, 2, 3 and 5 years if 1 to 1.4 cm in maximum dimension. * TR5 (more than or equal to 7 points): FNA if more than or equal to 1 cm in maximum dimension, followup ultrasound every year for 5 years if 0.5 to 0.9 cm in maximum dimension. * TR3, TR4 or TR5 nodules that are below the size threshold for followup receive no follow up. Electronically signed by: Nicko Santos MD 04/17/2025 03:37 PM [facility]
--- OUTSIDE RECORDS SUMMARY | 2025-04-17 23:13 | XMS_ITS | Patient Health Record ---
Author Organization [facility] Address [address] [place] [address] Care Team Providers Care Laboratory Assistant Name Role Phone Nikos (RETIRED) Estevan SEWELL Primary Care Provider Unavailable Moises Blankenship Jr Unavailable [phone] Allergies Allergen (clinical drug ingredient) Drug/Non Drug [...] nts Influenza Unknown 04/14/2020 Refused Social History Social History Drugs/Alcohol: Social Info Question Answer Notes Alcohol Screen Did you have a drink containing alcohol in the past year? Yes How often did you have a drink containing alcohol in the past year? 2 to 3 times a week (3 points) How many drinks did you have on a typical day when you were drinking in the past year? 3 or 4 drinks (1 point) How often did you have 6 or more drinks on one occasion in the past year? Never (0 point) Points 4 Interpretation Positive Additional Details Category Social Info Options Details Miscellaneous: Marital status: Occupation: [employer] Problems Problem Type SNOMED Code ICD Code Onset Dates Problem Status W/U Status Risk Notes Problem Colon cancer screening (352052770) Colon cancer screening (Z12.11) Active confirmed Problem Elevated liver enzymes level (846625603) Elevated liver function tests (R79.89) Active confirmed Problem Gastroesophageal reflux disease without esophagitis (775201476) Gastroesophageal reflux disease without esophagitis (K21.9) Active confirmed Problem Dysphagia (13076248) Dysphagia, unspecified type (R13.10) Active confirmed Plan Of Treatment Pending Test Test Name Order Date XR BARIUM SWALLOW-ESOPHAGUS 10/27/2016 US ABD 04/29/2020 Future Test Test Name Order Date UPPER GI ENDOSCOPY 10/27/2016 UPPER GI ENDOSCOPY 04/14/2020 COLONOSCOPY 04/14/2020 Insurance Providers Payer Name Payer Address Payer Phone Subscriber Number Group Number Insured Name Patient Relationship to Insured Coverage Start Date Coverage End Date [facility] IN[facility] [address] [place] [address] [id number] JACK SAHNI Self - patient is the insured Medical (General) History Medical History History ICD Code egd and colon 04-10-2010 dysphagia hyperlipidemia hypertension elevated homocystine level hyperglycemia Surgical History Surgery Date(Month/Year) hand surgery
--- OUTSIDE RECORDS SUMMARY | 2025-04-17 23:13 | XMS_ITS | Patient Health Record ---
Author [facility] [place] Address [address] [place] [address] Care Team Providers Care Sky Cap Name Role Phone Estevan Knott MD Primary Care Provider Unavailab Margie Corona Unavailable [phone] Nhung Collins Unavailable [phone] Allergies No Known Allergies Results Component Value [...] Problem Acquired hammer toe of right foot (172513266347147 5) Other hammer toe(s) (acquired), right foot (M20.41) Active confirmed Problem Acquired hammer toe of left foot (648574943481425 3) Other hammer toe(s) (acquired), left foot (M20.42) Active confirmed Problem Type II diabetes mellitus without complication (870041168) Type 2 diabetes mellitus without complications (E11.9) Active confirmed Vital Signs Blood pressure diastolic 80 mm Hg 10/22/2024 Height 5ft 9in in 10/22/2024 Blood pressure systolic 124 mm Hg 10/22/2024 Weight 195 lbs 10/22/2024 BMI 28.79 kg/m2 10/22/2024 Encounters Encounter Location Date Provider Diagnosis [facility] [address] [address] 10/22/2024 Margie Black Xerosis of skin L85. 3 ; Other hammer toe(s) (acquired), right foot M20.41 ; Other hammer toe(s) (acquired), left foot M20.42 and Type 2 diabetes mellitus without complications E11.9 [facility] [address] [address] 09/25/2024 Nhung Collins Assessments Encounter Date Diagnosis [...] Appt Details Provider Name:Margie Holloway , 10/21/2025 08:30:00 AM, [address] [place], [address], Insurance Providers Payer Name Payer Address Payer Phone Subscriber Number Group Number Insured Name Patient Relationship to Insured Coverage Start Date Coverage End Date [facility] [address] [place] [phone] [id number] Ike Meyer Self - patient is the insured Medical (General) History Medical History History ICD Code Broken bones covid-19 type II diabetes High Blood Pressure Chicken pox Surgical History Surgery Date(Month/Year) Hand Surgery 11/2000
== END 2025-04-17 14:48 | disposition home or self-care (01) ==
LOC: HO.US 14:47
PROVIDERS: PCP Physician Assistant; Visit Provider Student in an Organized Health Care Education/Training Program
DX: E04.2 Nontoxic multinodular goiter (principal); E05.90 Thyrotoxicosis, unspecified without thyrotoxic crisis or storm
CPT/HCPCS: 76536

== ENCOUNTER → 2025-04-17 14:52 | Outpatient (BNV) | payer OTHER, SELFPAY | PROVIDERS: PCP Physician Assistant; Visit Provider Radiology Diagnostic Radiology | DX: E04.2 Nontoxic multinodular goiter (principal) | CPT/HCPCS: 76536 ==